=== PATIENT | male | born 1935 | race Caucasian/White ===

== ENCOUNTER 2017-04-18 08:42 | Emergency (ER) | payer MEDICARE, OTHER ==
[~2017-04-18] VITALS: Ht 172.7 cm; Wt 67.0 kg
[~2017-04-18 08:42] MED LIST: AMLO5 PO; ASPI325T PO; BACT800T5 PO; FERR325T PO; FLUT50SP NASAL; LORA-361 PO; NAPR250T57 PO; PRED50 PO; VITA100018 PO; [UNRECOGNIZED DRUG - CODE] EACH EYE
[2017-04-18 08:45] VITALS: BP 119/57; PULSE 63; RESP 20; O2SAT 98
[2017-04-18] MEDS ORDERED: SODIUM CHLOR 0.9% 1000 ML INJ 1,000 ML IV ONE (08:50)
[2017-04-18 08:56] VITALS: O2SAT 98
[2017-04-18] MEDS ORDERED: SODIUM CHLORIDE 0.9% FLUSH 10 ML FLUSH IVF PRN (09:00)
--- NOTE | 2017-04-18 09:22 | PD ---
HPI . Syncope Chief Complaint: Syncope/Near-Syncope Time Seen by Provider: 08:50 Travel History International Travel<30 days: No Contact w/Intl Traveler<30days: No Traveled to known affect area: No History of Present Illness HPI This patient is brought to us by [facility] following a syncopal episode at [facility]. This patient works at [employer]. He states that he had a prodrome of blurred vision followed by cold sweats. He then syncopized. He was treated via [facility] with IV fluids. [facility] reports that his systolic blood pressure was about 70 on their arrival. The patient states that he now feels back to normal. He denies any chest pain, headache, shortness of breath. He states that he has not had any antecedent vomiting or diarrhea. No evidence of GI bleed. No unusual exposure to heat. No recent changes in his medications. PFSH Past Medical History Cancer: No Cardiovascular Problems: Yes High Cholesterol: Yes Cerebrovascular Accident: Yes (STROKE ) Diminished Hearing: No Endocrine: No Genitourinary: No Hypertension: Yes Immune Disorder: No Musculoskeletal: Yes Neurologic: No Psychiatric: No Reproductive: No Respiratory: Yes Past Surgical History Abdominal Surgery: Yes (APPENDECTOMY, hernia repair ) Appendectomy: Yes Other Surgery: Yes Social History Alcohol Use: No Tobacco Use: No Substance Use: No Allergies-Medications (Allergen,Severity, Reaction): Coded Allergies: No Known Allergies (Unverified , 04/18/17) Reported Meds & Prescriptions Reported Meds & Active Scripts Active Fluticasone Nasal [place] 50 Mcg/Act Naspr 2 [place] NASAL DAILY 30 Days Vitamin D3 (Cholecalciferol) 1,000 Unit Tab 1,000 Units PO DAILY Reported Aspirin 325 Mg Tab 325 Mg PO DAILY Norvasc (Amlodipine Besylate) 5 Mg Tab 5 Mg PO DAILY Review of Systems Except as stated in HPI: all other systems reviewed are Neg General / Constitutional: No: Fever, Chills Eyes: No: Blurred Vision HENT: Positive: Lightheadedness, No: Headaches Cardiovascular: No: Chest Pain or Discomfort Respiratory: No: Shortness of Breath Gastrointestinal: No: Nausea, Vomiting, Diarrhea, Abdominal Pain, Hematemesis, Hematochezia Neurologic: Positive: Syncope, No: Focal Abnormalities, Headache, Incontinence , Seizures Physical Exam Narrative GENERAL: Pleasant, elderly man who is now awake and alert and in no distress. SKIN: Warm and dry. HEAD: Atraumatic. Normocephalic. EYES: Pupils equal and round. Extraocular movements are intact. ENT: No nasal bleeding or discharge. Mucous membranes pink and moist. NECK: Trachea midline. Neck is supple. CARDIOVASCULAR: Regular rate and rhythm. Heart sounds are normal. RESPIRATORY: No accessory muscle use. Lungs are clear with full air movement throughout. GASTROINTESTINAL: Abdomen soft, non-tender, nondistended. MUSCULOSKELETAL: No obvious deformities. No edema. NEUROLOGICAL: Awake and alert. No obvious cranial nerve deficits. Motor grossly within normal limits. Normal speech. PSYCHIATRIC: Appropriate mood and affect; insight and judgment normal. Data Data Last Documented VS Vital Signs Date Time Temp Pulse Resp B/P (MAP) Pulse Ox O2 Delivery O2 Flow Rate FiO2 04/18/17 08:56 98 Room Air 04/18/17 08:45 63 20 119/57 (77) Orders Orders Electrocardiogram (04/18/17 08:50) Basic Metabolic Panel (Bmp) (04/18/17 08:50) Complete Blood Count With Diff (04/18/17 08:50) Ckmb (Isoenzyme) Profile (04/18/17 08:50) Troponin I (04/18/17 08:50) Chest, Single Ap (04/18/17 08:50) Ecg Monitoring (04/18/17 08:50) Iv Access Insert/Monitor (04/18/17 08:50) Oximetry (04/18/17 08:50) Sodium Chloride 0.9% Flush (Ns Flush) (04/18/17 09:00) Sodium Chlor 0.9% 1000 Ml Inj (Ns 1000 M (04/18/17 08:50) CKMB (04/18/17 09:00) CKMB% (04/18/17 09:00) Labs Laboratory Tests Test 04/18/17 09:00 White Blood Count 8.3 TH/MM3 Red Blood Count 3.72 MIL/MM3 Hemoglobin 11.0 GM/DL Hematocrit 34.3 % Mean Corpuscular Volume 92.4 FL Mean Corpuscular Hemoglobin 29.6 PG Mean Corpuscular Hemoglobin Concent 32.0 % Red Cell Distribution Width 12.9 % Platelet Count 350 TH/MM3 Mean Platelet Volume 8.4 FL Neutrophils (%) (Auto) 76.5 % Lymphocytes (%) (Auto) 11.4 % Monocytes (%) (Auto) 8.1 % Eosinophils (%) (Auto) 3.7 % Basophils (%) (Auto) 0.3 % Neutrophils # (Auto) 6.3 TH/MM3 Lymphocytes # (Auto) 0.9 TH/MM3 Monocytes # (Auto) 0.7 TH/MM3 Eosinophils # (Auto) 0.3 TH/MM3 Basophils # (Auto) 0.0 TH/MM3 CBC Comment DIFF FINAL Differential Comment Blood Urea Nitrogen 22 MG/DL Creatinine 1.38 MG/DL Random Glucose 127 MG/DL Calcium Level 8.0 MG/DL Sodium Level 141 MEQ/L Potassium Level 4.0 MEQ/L Chloride Level 108 MEQ/L Carbon Dioxide Level 24.7 MEQ/L Anion Gap 8 MEQ/L Estimat Glomerular Filtration Rate 49 ML/MIN Total Creatine Kinase 189 U/L Creatine Kinase MB 3.0 NG/ML Troponin I 0.02 NG/ML MDM Medical Decision Making Medical Screen Exam Complete: Yes Emergency Medical Condition: Yes Medical Record Reviewed: Yes (this patient's medical history is significant for hypertension, previous CVA, anemia and HIV) Interpretation(s) EKG shows sinus rhythm with no acute ischemic change Differential Diagnosis My differential diagnosis of syncope includes but is not limited to cardiac arrhythmia, hypovolemia, anemia, neurological catastrophe, vasovagal response Narrative Course This patient presents [facility] following a syncopal episode. He was hypotensive at the scene. His symptoms are markedly improved with IV fluids. CBC & BMP Diagram 04/18/17 09:00 Calcium Level 8.0 L Last Impressions Chest X-Ray 04/18/17 0850 Signed Impressions: Service Date/Time: March 09:24 - CONCLUSION: No acute disease. Jez Gutierrez MD Cardiac enzymes are normal. This patient's syncope was secondary to low blood pressure which is probably secondary to dehydration. He is markedly improved with IV fluids. He is stable for discharge to home. Diagnosis Primary Impression: Syncope Qualified Codes: R55 - Syncope and collapse Additional Impression: Dehydration Patient Instructions: Dehydration (DC), General Instructions, Near Syncope (DC) Disposition: 01 DISCHARGE HOME Condition: Stable Christine Bellamy MD Apr 18, 2017 09:22
[2017-04-18 09:24] LABS: AUTOMATED NEUTROPHIL # 6.3 TH/MM3 (1.8-7.7); BASOPHIL % 0.3 % (0.0-2.0); EOSINOPHIL # 0.3 TH/MM3 (0-0.4); EOSINOPHIL % 3.7 % (0.0-4.0); HEMATOCRIT 34.3 % (39.0-51.0); HEMO FLAGS DIFF FINAL; LYMPH % 11.4 % (9.0-44.0); LYMPHOCYTE # 0.9 TH/MM3 (1.0-4.8); MEAN CELL VOLUME 92.4 FL (80.0-100.0); MEAN CORPUSCULAR HEMOGLOBIN 29.6 PG (27.0-34.0); MONO % 8.1 % (0.0-8.0); NEUT % 76.5 % (16.0-70.0); PLATELET COUNT 350 TH/MM3 (150-450); RED BLOOD COUNT 3.72 MIL/MM3 (4.50-5.90); RED CELL DISTRIBUTION WIDTH 12.9 % (11.6-17.2); WHITE BLOOD COUNT 8.3 TH/MM3 (4.0-11.0)
--- NOTE | 2017-04-18 09:43 | RADRPT ---
EXAM DATE/TIME: 04/18/2017 09:24 [place] COMPARISON: CHEST SINGLE AP, June 06, 2016, 18:22. INDICATIONS : Syncope and short of breath this morning. MEDICAL HISTORY : Hypertension. SURGICAL HISTORY : Inguinal hernia repair. Appendectomy. ENCOUNTER: Initial ACUITY: 1 day PAIN SCORE: 0/10 LOCATION: Bilateral chest FINDINGS: A single view of the chest demonstrates the lungs to be symmetrically aerated without evidence of mas s, infiltrate or effusion. The cardiomediastinal contours are unremarkable. Osseous structures are intact. CONCLUSION: No acute disease. Jez Gutierrez MD on April 18, 2017 at 9:38 Board Certified Radiologist. This report was verified electronically.
[2017-04-18 09:53] LABS: ANION GAP 8 MEQ/L (5-15); BICARBONATE 24.7 MEQ/L (21.0-32.0); BLOOD UREA NITROGEN 22 MG/DL (7-18); CHLORIDE 108 MEQ/L (98-107); GLOMERULAR FILTRATION RATE 49 ML/MIN (>89); SODIUM (NA) 141 MEQ/L (136-145)
[2017-04-18 09:59] LABS: CREATINE KINASE 189 U/L (39-308)
--- NOTE | 2017-04-18 17:57 | EKG ---
Date Performed: 04/18/2017 Time Performed: 09:08:16 PTAGE: 81 years EKG: Sinus rhythm WITH OCCASIONAL SUPRAVENTRICULAR PREMATURE COMPLEXES POSSIBLE RIGHT VENTRICULAR CONDUCTION DELAY LEF T ANTERIOR FASCICULAR BLOCK ABNORMAL ECG Compared to prior tracing no significant change PREVIOUS TRACING : 07/21/2016 12.37 DOCTOR: Abdoulaye Ragland Interpretating Date/Time 04/18/2017 17:56:18
== END 2017-04-18 11:50 | disposition home or self-care (01) ==
LOC: NEPE 08:42
DX: R55 Syncope and collapse (principal); E86.0 Dehydration; I10 Essential (primary) hypertension; D64.9 Anemia, unspecified; R94.31 Abnormal electrocardiogram [ECG] [EKG]; I44.4 Left anterior fascicular block; Z21 Asymptomatic human immunodeficiency virus [HIV] infection status; Z86.73 Personal history of transient ischemic attack (TIA), and cerebral infarction without residual deficits; Z79.899 Other long term (current) drug therapy
CPT/HCPCS: 71010; 80048; 82550; 82552; 84484; 85025; 93005; 96360; 99285; J7030

== ENCOUNTER 2017-05-31 07:45 | Emergency (ER) | payer OTHER ==
[~2017-05-31] VITALS: Ht 172.7 cm; Wt 66.0 kg
[2017-05-31 07:45] VITALS: BP 162/76; PULSE 77; RESP 18; TEMP 97.6; O2SAT 97
[~2017-05-31 07:45] MED LIST changes: -BACT800T5 PO; -FERR325T PO; -LORA-361 PO; -NAPR250T57 PO; -PRED50 PO; -[UNRECOGNIZED DRUG - CODE] EACH EYE
[2017-05-31] MEDS ORDERED: CLAR10CA3 PO (07:55)
[2017-05-31] MEDS ORDERED: ALEV220T14 PO (07:55)
[2017-05-31 07:56] VITALS: BP 157/76; PULSE 75; RESP 18; O2SAT 98
--- NOTE | 2017-05-31 08:03 | PD ---
HPI Chief Complaint: Syncope/Near-Syncope Time Seen by Provider: 07:51 Travel History International Travel<30 days: No Contact w/Intl Traveler<30days: No Traveled to known affect area: No History of Present Illness HPI This patient had a presyncopal episode. He had walked outside his house and was in his carport and started to feel dizzy and lightheaded. After a couple minutes of this he felt really weak and felt like he was going to pass out. He left himself to the ground but did not lose consciousness. No injury. He denies having any pain at all. No headache or chest pain. No weakness sensory loss speech slurring etc. His called paramedics and brought him for evaluation. By the time he got to the emergency room he felt perfectly normal and had no symptoms. Patient had a similar event in March, 2 months ago, and this is the second time this happened. Symptoms were moderately severe for about 5 minutes but at this time they are absent. No alleviating factors. No exacerbating factors. PFSH Past Medical History Cancer: No Cardiovascular Problems: Yes High Cholesterol: Yes Cerebrovascular Accident: Yes (STROKE ) Diminished Hearing: No Endocrine: No Genitourinary: No Hypertension: Yes Immune Disorder: No Musculoskeletal: Yes Neurologic: No Psychiatric: No Reproductive: No Respiratory: Yes Past Surgical History Abdominal Surgery: Yes (APPENDECTOMY, hernia repair ) Appendectomy: Yes Other Surgery: Yes Social History Alcohol Use: No Tobacco Use: No Substance Use: No Allergies-Medications (Allergen,Severity, Reaction): Coded Allergies: No Known Allergies (Unverified , 04/18/17) Reported Meds & Prescriptions Reported Meds & Active Scripts Active Reported Claritin (Loratadine) 10 Mg Cap 10 Mg PO DAILY Aleve Arthritis (Naproxen Sodium) 220 Mg Tab 220 Mg PO BID Review of Systems General / Constitutional: No: Fever Eyes: No: Visual changes HENT: Positive: Lightheadedness, No: Headaches Cardiovascular: No: Chest Pain or Discomfort Respiratory: No: Shortness of Breath Gastrointestinal: No: Abdominal Pain Genitourinary: No: Dysuria Musculoskeletal: Positive: Weakness, No: Pain Skin: No Rash Neurologic: Positive: Weakness, Dizziness Psychiatric: No: Depression Endocrine: No: Polydipsia Hematologic/Lymphatic: No: Easy Bruising Physical Exam Narrative GENERAL: Well-nourished, well-developed patient in no apparent distress. SKIN: Focused skin assessment reveals no rash and nodules. Skin is Warm and dry. HEAD: Atraumatic. Normocephalic. EYES: Pupils equal and round. No scleral icterus. No injection or drainage. ENT: No nasal bleeding or discharge. Mucous membranes pink and moist. NECK: Trachea midline. No JVD. CARDIOVASCULAR: Regular rate and rhythm. No murmur appreciated. RESPIRATORY: No accessory muscle use. Clear to auscultation. Breath sounds equal bilaterally. GASTROINTESTINAL: Abdomen soft, non-tender, nondistended. Hepatic and splenic margins not palpable. MUSCULOSKELETAL: No obvious deformities. No clubbing. No cyanosis. No edema. NEUROLOGICAL: Awake and alert. No obvious cranial nerve deficits. Motor grossly within normal limits. Normal speech. PSYCHIATRIC: Appropriate mood and affect; insight and judgment normal. Data Data Last Documented VS Vital Signs Date Time Temp Pulse Resp B/P (MAP) Pulse Ox O2 Delivery O2 Flow Rate FiO2 05/31/17 09:52 70 18 165/76 (105) 98 Room Air 05/31/17 07:45 97.6 Orders Orders Iv Access Insert/Monitor (05/31/17 07:59) Electrocardiogram (05/31/17 ) Complete Blood Count With Diff (05/31/17 07:59) Basic Metabolic Panel (Bmp) (05/31/17 07:59) Sodium Chlor 0.9% 1000 Ml Inj (Ns 1000 M (05/31/17 09:00) Labs Laboratory Tests Test 05/31/17 08:18 White Blood Count 8.9 TH/MM3 Red Blood Count 3.14 MIL/MM3 Hemoglobin 8.8 GM/DL Hematocrit 27.4 % Mean Corpuscular Volume 87.3 FL Mean Corpuscular Hemoglobin 28.0 PG Mean Corpuscular Hemoglobin Concent 32.1 % Red Cell Distribution Width 12.7 % Platelet Count 456 TH/MM3 Mean Platelet Volume 7.2 FL Neutrophils (%) (Auto) 86.3 % Lymphocytes (%) (Auto) 5.4 % Monocytes (%) (Auto) 6.3 % Eosinophils (%) (Auto) 1.8 % Basophils (%) (Auto) 0.2 % Neutrophils # (Auto) 7.6 TH/MM3 Lymphocytes # (Auto) 0.5 TH/MM3 Monocytes # (Auto) 0.6 TH/MM3 Eosinophils # (Auto) 0.2 TH/MM3 Basophils # (Auto) 0.0 TH/MM3 CBC Comment DIFF FINAL Differential Comment Blood Urea Nitrogen 26 MG/DL Creatinine 1.70 MG/DL Random Glucose 116 MG/DL Calcium Level 8.5 MG/DL Sodium Level 139 MEQ/L Potassium Level 3.8 MEQ/L Chloride Level 103 MEQ/L Carbon Dioxide Level 26.9 MEQ/L Anion Gap 9 MEQ/L Estimat Glomerular Filtration Rate 39 ML/MIN MDM Medical Decision Making Medical Screen Exam Complete: Yes Emergency Medical Condition: Yes Medical Record Reviewed: Yes Differential Diagnosis Vasovagal episode, cardiac arrhythmia, dehydration, presyncope Narrative Course I have reviewed the patient's electronic medical record. Reviewed his workup from 2 months ago which was negative IV placed CBC shows anemia which is chronic Metabolic profile shows some renal sufficiency I reviewed his EKG which shows sinus rhythm without ectopy or ST elevation Initial blood pressure 157/76 He tracks his blood pressure several times a week and it always runs around 130 to 140 systolic he reports. Patient is neurologically intact. I gave him 1 L normal saline IV He is euvolemic For the 2 after hours he's been here he is been absolutely asymptomatic and stable for outpatient follow-up Diagnosis Primary Impression: Pre-syncope Additional Instructions: The patient was advised to follow up with their physician and return if they worsen. Med/Other Pt SpecificInfo: Other Disposition: 01 DISCHARGE HOME Condition: Stable Dick Sam MD May 31, 2017 08:03
[2017-05-31 08:26] LABS: AUTOMATED NEUTROPHIL # 7.6 TH/MM3 (1.8-7.7); BASOPHIL % 0.2 % (0.0-2.0); EOSINOPHIL # 0.2 TH/MM3 (0-0.4); EOSINOPHIL % 1.8 % (0.0-4.0); HEMATOCRIT 27.4 % (39.0-51.0); HEMO FLAGS DIFF FINAL; LYMPH % 5.4 % (9.0-44.0); LYMPHOCYTE # 0.5 TH/MM3 (1.0-4.8); MEAN CELL VOLUME 87.3 FL (80.0-100.0); MEAN CORPUSCULAR HGB CONC 32.1 % (32.0-36.0); MONO % 6.3 % (0.0-8.0); NEUT % 86.3 % (16.0-70.0); PLATELET COUNT 456 TH/MM3 (150-450); RED BLOOD COUNT 3.14 MIL/MM3 (4.50-5.90); RED CELL DISTRIBUTION WIDTH 12.7 % (11.6-17.2); WHITE BLOOD COUNT 8.9 TH/MM3 (4.0-11.0)
[2017-05-31 08:40] LABS: POTASSIUM 3.8 MEQ/L (3.5-5.1)
[2017-05-31 08:43] LABS: BICARBONATE 26.9 MEQ/L (21.0-32.0)
--- NOTE | 2017-05-31 08:52 | EKG ---
Date Performed: 05/31/2017 Time Performed: 08:02:02 PTAGE: 81 years EKG: Sinus rhythm LEFT ANTERIOR FASCICULAR BLOCK ABNORMAL ECG PREVIOUS TRACING : 04/18/2017 09.08 No significant change from previous tracing noted. DOCTOR: Mike Truong Interpretating Date/Time 05/31/2017 08:52:30
[2017-05-31] MEDS ORDERED: SODIUM CHLOR 0.9% 1000 ML INJ 1,000 ML IV ONE (09:00)
[2017-05-31 09:52] VITALS: BP 165/76; PULSE 70; RESP 18; O2SAT 98
== END 2017-05-31 10:42 | disposition home or self-care (01) ==
LOC: PHED 07:45
DX: R55 Syncope and collapse (principal); E78.00 Pure hypercholesterolemia, unspecified; I10 Essential (primary) hypertension; R94.31 Abnormal electrocardiogram [ECG] [EKG]
CPT/HCPCS: 80048; 85025; 93005; 96360; 99284; J7030

== ENCOUNTER 2017-06-01 13:48 | Emergency (ER) | payer OTHER ==
[~2017-06-01] VITALS: Ht 172.7 cm; Wt 65.2 kg
[~2017-06-01 13:48] MED LIST changes: +ALEV220T14 PO; -AMLO5 PO; -ASPI325T PO; +CLAR10CA3 PO; -FLUT50SP NASAL; -VITA100018 PO
[2017-06-01 13:50] VITALS: BP 159/74; PULSE 73; RESP 16; TEMP 98.7; O2SAT 97
--- NOTE | 2017-06-01 15:23 | PD ---
HPI Chief Complaint: Eye Problems/Injury Time Seen by Provider: 14:30 Travel History International Travel<30 days: No Contact w/Intl Traveler<30days: No Traveled to known affect area: No History of Present Illness HPI This is an 81-year-old male who presents to the emergency department having had an episode yesterday where he passed out and fell into the bushes. He didn't hit his head. Ever since then he reports he's been having a black spot in his eye that looks like upon history. He is not a very good historian and is hearing impaired. It seems to be in the same region of his vision and the size and shape stays the same. His eye is not painful but it is a little bit irritated and red. His symptoms of been constant and not improving or changing. He does not currently see an engraver wood. PFSH Past Medical History Hx Anticoagulant Therapy: Yes (aspirin ) Cancer: No Cardiovascular Problems: Yes High Cholesterol: Yes Cerebrovascular Accident: Yes (TIA 2 yrs ago) Diminished Hearing: No Endocrine: No Genitourinary: No Hypertension: Yes Immune Disorder: No Implanted Vascular Access Dvce: No Musculoskeletal: Yes Neurologic: No Psychiatric: No Reproductive: No Respiratory: Yes ?: Not Past Surgical History Abdominal Surgery: Yes (hernia repair ) Appendectomy: Yes Other Surgery: Yes Social History Alcohol Use: No Tobacco Use: No Substance Use: No Allergies-Medications (Allergen,Severity, Reaction): Coded Allergies: No Known Allergies (Unverified , 04/18/17) Reported Meds & Prescriptions Reported Meds & Active Scripts Active Reported Claritin (Loratadine) 10 Mg Cap 10 Mg PO DAILY Aleve Arthritis (Naproxen Sodium) 220 Mg Tab 220 Mg PO BID Review of Systems ROS Limitations: Hearing Impaired Physical Exam Narrative GENERAL:Well appearing, no acute distress SKIN: Focused skin assessment warm and dry. HEAD: Atraumatic. Normocephalic. EYES: Pupils equal and round. No injection or drainage. Vision is 20/25 in both eyes. Left eye has some conjunctival injection. There is no uptake on fluoroscein exam. Funduscopic exam appears dark red on the left but is impaired by pupil constriction ENT: Moist mucous membranes NECK: Trachea midline. CARDIOVASCULAR: Regular rate and rhythm. No murmur appreciated. RESPIRATORY: Clear to auscultation. Breath sounds equal bilaterally. GASTROINTESTINAL: Abdomen soft, non-tender, nondistended. MUSCULOSKELETAL: No obvious deformities. NEUROLOGICAL: Awake and alert. No obvious cranial nerve deficits. No dysarthria or aphasia. Moving all extremities. PSYCHIATRIC: Appropriate mood and affect; insight and judgment normal. Data Data Last Documented VS Vital Signs Date Time Temp Pulse Resp B/P (MAP) Pulse Ox O2 Delivery O2 Flow Rate FiO2 06/01/17 13:50 98.7 73 16 159/74 (102) 97 Orders Orders Ed Poc Ultrasound (06/01/17 ) [facility] Medical Decision Making Medical Screen Exam Complete: Yes Emergency Medical Condition: Yes Interpretation(s) Afebrile, no tachycardia, hypertensive [id number] ultrasound: No obvious retinal detachment, small hyperdensity at the posterior aspect of the globe near the optic nerve which may be the macula Differential Diagnosis Retinal detachment, vitreous hemorrhage, corneal abrasion Narrative Course This is an 81-year-old male who presents to the emergency department with a black treelike shape in his vision ever since a traumatic injury yesterday. Visual acuity is 20/25 in both eyes. He does have some conjunctival injection in the left eye but no evidence of a corneal abrasion. I performed a bedside ultrasound which was indeterminate. I spoke to the on-call service for Dr. Freeman a retinal specialist and he is willing to see the patient in his office in [place] at 5:30. Patient was advised to follow-up there immediately after discharge. Diagnosis Primary Impression: Visual floaters Qualified Codes: H43.392 - Other vitreous opacities, left eye Additional Instructions: Follow-up immediately after this visit with: Dr. Mcguire at [facility] at 5:[address] [place] [id number] Call [phone] If you have trouble making your appointment Med/Other Pt SpecificInfo: No Change to Meds Disposition: 01 DISCHARGE HOME Condition: Stable Christiana Denney MD Jun 01, 2017 15:23
== END 2017-06-01 16:44 | disposition home or self-care (01) ==
LOC: PHED 13:48
DX: H43.392 Other vitreous opacities, left eye (principal); H91.90 Unspecified hearing loss, unspecified ear; I10 Essential (primary) hypertension
CPT/HCPCS: 99284

== ENCOUNTER 2017-08-23 08:14 | Inpatient (IN) | payer OTHER, MEDICARE ==
[~2017-08-23] VITALS: Ht 172.7 cm; Wt 65.0 kg
[2017-08-23 08:22] VITALS: BP 203/99; PULSE 85; RESP 16; TEMP 97.8; O2SAT 98
[2017-08-23] MEDS ORDERED: MORPHINE SULFATE 2 MG/ML INJ IV PUSH ONE (09:30)
[2017-08-23] MEDS ORDERED: ONDANSETRON HCL 4 MG/2 ML VIAL IV PUSH ONE (09:30)
--- NOTE | 2017-08-23 09:34 | PD ---
HPI Chief Complaint: Fall Time Seen by Provider: 09:27 Travel History International Travel<30 days: No Contact w/Intl Traveler<30days: No Traveled to known affect area: No History of Present Illness HPI 81-year-old male complains of right hip pain. Patient states that he fell yesterday. Patient denies loss of consciousness. Patient denies any headache or neck pain. Patient denies any chest pain or shortness of breath. Patient denies abdominal pain. Patient denies any focal weakness or numbness of extremity. Patient has history hypertension. Patient denies history of diabetes. Patient is a nonsmoker. PFSH Past Medical History Hx Anticoagulant Therapy: Yes (aspirin ) Arthritis: Yes Cancer: No Cardiovascular Problems: Yes High Cholesterol: Yes Cerebrovascular Accident: Yes (TIA 2 yrs ago) Diminished Hearing: No Endocrine: No Genitourinary: No Hypertension: Yes Immune Disorder: No Implanted Vascular Access Dvce: No Musculoskeletal: Yes Neurologic: No Psychiatric: No Reproductive: No Respiratory: Yes Tetanus Vaccination: < 5 Years Influenza Vaccination: Yes Past Surgical History Abdominal Surgery: Yes (hernia repair ) Appendectomy: Yes Other Surgery: Yes Social History Alcohol Use: No Tobacco Use: No (QUIT 40 YEARS AGO) Substance Use: No Allergies-Medications (Allergen,Severity, Reaction): Coded Allergies: No Known Allergies (Verified Adverse Reaction, Unknown, 08/23/17) Reported Meds & Prescriptions Reported Meds & Active Scripts Active Reported Claritin (Loratadine) 10 Mg Cap 10 Mg PO DAILY Aleve Arthritis (Naproxen Sodium) 220 Mg Tab 220 Mg PO BID Review of Systems General / Constitutional: No: Fever Eyes: No: Visual changes HENT: No: Headaches Cardiovascular: No: Chest Pain or Discomfort Respiratory: No: Shortness of Breath Gastrointestinal: No: Abdominal Pain Genitourinary: No: Dysuria Musculoskeletal: Positive: Pain Skin: No Rash Neurologic: No: Weakness Psychiatric: No: Depression Endocrine: No: Polydipsia Hematologic/Lymphatic: No: Easy Bruising Physical Exam Narrative GENERAL: Well-nourished, well-developed patient. SKIN: Focused skin assessment warm/dry. HEAD: Normocephalic. EYES: No scleral icterus. No injection or drainage. NECK: Supple, trachea midline. No JVD or lymphadenopathy. CARDIOVASCULAR: Regular rate and rhythm without murmurs, gallops, or rubs. RESPIRATORY: Breath sounds equal bilaterally. No accessory muscle use. GASTROINTESTINAL: Abdomen soft, non-tender, nondistended. MUSCULOSKELETAL: Patient has moderate tenderness on palpation right hip area. The right leg is externally rotated and shortened. Sensorimotor function distally intact. BACK: Nontender without obvious deformity. No CVA tenderness. Neurologic exam normal. Data Data Last Documented VS Vital Signs Date Time Temp Pulse Resp B/P (MAP) Pulse Ox O2 Delivery O2 Flow Rate FiO2 08/23/17 09:43 16 08/23/17 09:39 99 Room Air 08/23/17 08:22 97.8 85 203/99 (133) Orders Orders Electrocardiogram (08/23/17 09:27) Complete Blood Count With Diff (08/23/17:27) Comprehensive Metabolic Panel (08/23/17:27) Creatine Kinase (Cpk) (08/23/17 09:27) Prothrombin Time / Inr (Pt) (08/23/17:27) Act Partial Throm Time (Ptt) (08/23/17 09:27) Urinalysis - C+S If Indicated (08/23/17 09:27) Thyroid Stimulating Hormone (08/23/17 09:27) Chest, Single Ap (08/23/17 09:27) Iv Access Insert/Monitor (08/23/17:27) Ecg Monitoring (08/23/17:27) Oximetry (08/23/17:27) Hip, Uni(Ap&Lat) W Ap Pelvis (08/23/17 09:27) Sodium Chlor 0.9% 1000 Ml Inj (Ns 1000 M (08/23/17 09:30) Morphine Inj (Morphine Inj) (08/23/17 09:30) Ondansetron Inj (Zofran Inj) (08/23/17 09:30) Labs Laboratory Tests Test 08/23/17 09:35 White Blood Count 8.9 TH/MM3 Red Blood Count 3.71 MIL/MM3 Hemoglobin 11.1 GM/DL Hematocrit 33.1 % Mean Corpuscular Volume 89.3 FL Mean Corpuscular Hemoglobin 29.9 PG Mean Corpuscular Hemoglobin Concent 33.6 % Red Cell Distribution Width 18.0 % Platelet Count 279 TH/MM3 Mean Platelet Volume 8.8 FL Neutrophils (%) (Auto) 82.4 % Lymphocytes (%) (Auto) 5.9 % Monocytes (%) (Auto) 11.2 % Eosinophils (%) (Auto) 0.3 % Basophils (%) (Auto) 0.2 % Neutrophils # (Auto) 7.3 TH/MM3 Lymphocytes # (Auto) 0.5 TH/MM3 Monocytes # (Auto) 1.0 TH/MM3 Eosinophils # (Auto) 0.0 TH/MM3 Basophils # (Auto) 0.0 TH/MM3 CBC Comment DIFF FINAL Differential Comment Prothrombin Time 10.5 SEC Prothromb Time International Ratio 1.0 RATIO Activated Partial Thromboplast Time 24.7 SEC Urine Color LIGHT-YELLOW Urine Turbidity CLEAR Urine pH 7.0 Urine Specific [place] 1.009 Urine Protein 100 mg/dL Urine Glucose (UA) NEG mg/dL Urine Ketones NEG mg/dL Urine Occult Blood MOD Urine Nitrite NEG Urine Bilirubin NEG Urine Urobilinogen LESS THAN 2.0 MG/DL Urine Leukocyte Esterase NEG Urine RBC 81 /hpf Urine WBC 2 /hpf Urine Bacteria RARE /hpf Urine Mucus FEW /lpf Microscopic Urinalysis Comment CULT NOT INDICATED Blood Urea Nitrogen 40 MG/DL Creatinine 1.95 MG/DL Random Glucose 100 MG/DL Total Protein 7.5 GM/DL Albumin 3.7 GM/DL Calcium Level 8.6 MG/DL Alkaline Phosphatase 118 U/L Aspartate Amino Transf (AST/SGOT) 21 U/L Alanine Aminotransferase (ALT/SGPT) 18 U/L Total Bilirubin 0.7 MG/DL Sodium Level 141 MEQ/L Potassium Level 4.1 MEQ/L Chloride Level 107 MEQ/L Carbon Dioxide Level 26.0 MEQ/L Anion Gap 8 MEQ/L Estimat Glomerular Filtration Rate 33 ML/MIN Total Creatine Kinase 146 U/L Thyroid Stimulating Hormone 3rd Gen 2.130 uIU/ML [facility] Medical Decision Making Medical Screen Exam Complete: Yes Emergency Medical Condition: Yes Interpretation(s) 10:24 AM. CBC with WBC 8.9. Hemoglobin 11.1 hematocrit 33.1. 82 neutrophil. BUN 40. Creatinine 1.95. GFR 33. UA positive for RBC and bacteria. Differential Diagnosis Differential diagnosis including fracture, dislocation. Narrative Course 81-year-old male with right hip injury. Normal saline solution 1 25 cc an hour. Morphine 2 mg IV. Zofran 4 mg IV Diagnosis Primary Impression: Fracture of femoral neck, right Qualified Codes: S72.001A - Fracture of unspecified part of neck of right femur, initial encounter for closed fracture Additional Impressions: Chronic kidney disease (CKD) stage G3a/A1, moderately decreased glomerular filtration rate (GFR) between 45-59 mL/min/1.73 square meter and albuminuria creatinine ratio less than 30 mg/g Hematuria Qualified Codes: R31.21 - Asymptomatic microscopic hematuria Admitting Information Admitting Physician Requests: it Kofi Fonseca MD Aug 23, 2017 09:34
[2017-08-23] MEDS: SODIUM CHLOR 0.9% 1000 ML INJ 1,000 ML IV SCH ×2 (09:38→15:11)
[2017-08-23 09:39] VITALS: RESP 17; O2SAT 99
[2017-08-23 10:08] LABS: BACTERIA, URINE RARE /hpf; BILIRUBIN, URINE NEG (NEG); BLOOD, URINE MOD (NEG); GLUCOSE,URINE NEG (NEG); KETONE, URINE NEG (NEG); MUCUS URINE FEW /lpf (OCC); NITRITE,URINE NEG (NEG); URINE COLOR LIGHT-YELLOW (YELLW/STRAW); URINE LEUKOCYTE ESTERASE NEG (NEG)
[2017-08-23 10:12] LABS: AUTOMATED NEUTROPHIL # 7.3 TH/MM3 (1.8-7.7); BASOPHIL % 0.2 % (0.0-2.0); EOSINOPHIL % 0.3 % (0.0-4.0); HEMATOCRIT 33.1 % (39.0-51.0); HEMOGLOBIN 11.1 GM/DL (13.0-17.0); LYMPH % 5.9 % (9.0-44.0); LYMPHOCYTE # 0.5 TH/MM3 (1.0-4.8); MEAN CELL VOLUME 89.3 FL (80.0-100.0); MEAN CORPUSCULAR HEMOGLOBIN 29.9 PG (27.0-34.0); MEAN CORPUSCULAR HGB CONC 33.6 % (32.0-36.0); MEAN PLATELET VOLUME 8.8 FL (7.0-11.0); MONO % 11.2 % (0.0-8.0); NEUT % 82.4 % (16.0-70.0); PLATELET COUNT 279 TH/MM3 (150-450); RED BLOOD COUNT 3.71 MIL/MM3 (4.50-5.90); WHITE BLOOD COUNT 8.9 TH/MM3 (4.0-11.0)
[2017-08-23 10:13] LABS: PROTHROMBIN TIME - PATIENT 10.5 SEC (9.8-11.6)
[2017-08-23 10:15] VITALS: BP 164/83; PULSE 84; RESP 16; TEMP 97.9; O2SAT 99
[2017-08-23 10:20] LABS: ALBUMIN 3.7 GM/DL (3.4-5.0); AST (GOT) 21 U/L (15-37); BLOOD UREA NITROGEN 40 MG/DL (7-18); CALCIUM 8.6 MG/DL (8.5-10.1); CHLORIDE 107 MEQ/L (98-107); CREATININE 1.95 MG/DL (0.60-1.30); GLOMERULAR FILTRATION RATE 33 ML/MIN (>89); GLUCOSE,RANDOM 100 MG/DL (74-106); SODIUM (NA) 141 MEQ/L (136-145)
--- NOTE | 2017-08-23 10:23 | RADRPT ---
EXAM DATE/TIME: 08/23/2017 09:56 [facility] COMPARISON: No previous studies available for comparison. INDICATIONS : Fell today MEDICAL HISTORY : None. SURGICAL HISTORY : None. ENCOUNTER: Initial ACUITY: 1 day PAIN SCORE: 8/10 LOCATION: Right hip and pelvis FINDINGS: Intertrochanteric fracture right hip. Degenerative changes right SI joint. Left hemipelvis intact. CONCLUSION: Intertrochanteric fracture right hip. Maurice Mendez MD FACR on August 23, 2017 at 10:21 Board Certified Radiologist. This report was verified electronically.
[2017-08-23 10:30] LABS: ALKALINE PHOSPHATASE 118 U/L (45-117); ALT (GPT) 18 U/L (12-78); TOTAL BILIRUBIN ADULT 0.7 MG/DL (0.2-1.0); TOTAL PROTEIN 7.5 GM/DL (6.4-8.2)
--- NOTE | 2017-08-23 10:33 | RADRPT ---
EXAM DATE/TIME: 08/23/2017 09:56 [facility] COMPARISON: CHEST SINGLE AP, April 18, 2017, 9:24. INDICATIONS : Fell today. MEDICAL HISTORY : None. SURGICAL HISTORY : None. ENCOUNTER: Initial ACUITY: 1 day PAIN SCORE: 0/10 LOCATION: Bilateral chest FINDINGS: The cardiac silhouette is enlarged in transverse diameter. The lungs are free of acute parenchymal op acity. No effusions are identified. There is prominence of the aortic knob is with calcification omero acteristic of atherosclerotic vascular disease. There is no evidence of acute fracture. CONCLUSION: 1. Cardiomegaly. No acute pulmonary disease. Benji Henley MD on August 23, 2017 at 10:30 Board Certified Radiologist. This report was verified electronically.
[2017-08-23] MEDS ORDERED: ACETAMINOPHEN/HYDROcodone 325 MG/5 MG TAB PO PRN (11:30)
[2017-08-23] MEDS ORDERED: SODIUM CHLORIDE 0.9% FLUSH 10 ML FLUSH IV FLUSH PRN (11:30)
[2017-08-23] MEDS ORDERED: BISACODYL 10 MG SUPP RECTAL PRN (11:30)
[2017-08-23] MEDS ORDERED: SENNOSIDES 8.6 MG TAB PO PRN (11:30)
[2017-08-23] MEDS ORDERED: TEMAZEPAM 15 MG CAP PO PRN (11:30)
[2017-08-23] MEDS ORDERED: PROCHLORPERAZINE 25 MG SUPP RECTAL PRN (11:30)
[2017-08-23] MEDS ORDERED: NALOXONE HCL 0.4 MG/ML AMP IV PUSH PRN ×2 (11:30)
[2017-08-23] MEDS ORDERED: ONDANSETRON HCL 4 MG/2 ML VIAL IVP PRN (11:30)
[2017-08-23] MEDS ORDERED: MORPHINE SULFATE 2 MG/ML INJ IV PUSH PRN ×2 (11:30→14:00)
[2017-08-23] MEDS ORDERED: LACTULOSE SYRUP 20 GM/30 ML CUP PO PRN (11:30)
[2017-08-23] MEDS ORDERED: ACETAMINOPHEN 325 MG TAB PO PRN (11:30)
[2017-08-23] MEDS ORDERED: LIDOCAINE HCL 1% PF 5 ML SYRINGE OTHER ONE (12:00)
[2017-08-23] MEDS ORDERED: PROPOFOL 200 MG/20 ML AMP IV ONE (12:00)
[2017-08-23] MEDS ORDERED: LACTATED RINGER'S 1000 ML INJ 1,000 ML IV ONE (12:00)
[2017-08-23] MEDS ORDERED: PHENYLEPH/NS 1000 MCG/10 ML SYR IV ONE (12:00)
--- NOTE | 2017-08-23 12:24 | RADRPT ---
EXAM DATE/TIME: 08/23/2017 12:03 [facility] COMPARISON: HIP RIGHT (AP&LAT 2/3VWS) W AP PELVIS, August 23, 2017, 9:56. INDICATIONS : Right hip pain, evaluate for possible fracture. RADIATION DOSE: 7.33 CTDIvol (mGy) MEDICAL HISTORY : Hypertension. Cerebrovascular disease. SURGICAL HISTORY : Appendectomy. hernia repair ENCOUNTER: Initial ACUITY: 1 day PAIN SCALE: 8/10 LOCATION: Right hip TECHNIQUE: Volumetric scanning of the hip was performed. Using automated exposure control and adjustment of the mA and/or kV according to patient size, radiation dose was kept as low as reasonably achievable to o btain optimal diagnostic quality images. DICOM format image data is available electronically for rev iew and comparison. FINDINGS: Basi cervical fracture right hip. Femoral head aligned with the acetabulum. Pelvis intact. Moderate vascular calcifications. CONCLUSION: Basi cervical fracture fracture right hip. Femoral head aligned with the acetabulum. Maurice Mendez MD FACR on August 23, 2017 at 12:19 Board Certified Radiologist. This report was verified electronically.
--- NOTE | 2017-08-23 12:38 | PD.ORT.PN ---
Subjective Subjective Remarks s/p fall at home right hip pain. Ct scan reveals femoral neck fx Objective Vitals Vital Signs Date Time Temp Pulse Resp B/P (MAP) Pulse Ox O2 Delivery O2 Flow Rate FiO2 08/23/17 10:15 97.9 84 16 164/83 (110) 99 Room Air 08/23/17 09:43 16 08/23/17 09:39 17 99 Room Air 08/23/17 08:22 97.8 85 16 203/99 (133) 98 08/23/17 08:22 81 16 99 Room Air Result Diagram: 08/23/17 0935 08/23/1735 Other Results Laboratory Tests Test 08/23/17 09:35 Prothromb Time International Ratio 1.0 RATIO Prothrombin Time 10.5 SEC (9.8-11.6) Imaging Last 24 hours Impressions Hip and Pelvis X-Ray 08/23/17926 Signed Impressions: Service Date/Time: Wednesday, August 23, 2017 09:56 - CONCLUSION: Intertrochanteric fracture right hip. Maurice Mendez MD FACR Chest X-Ray 08/23/17926 Signed Impressions: Service Date/Time: Wednesday, August 23, 2017 09:56 - CONCLUSION: 1. Cardiomegaly. No acute pulmonary disease. Benji Henley MD Lower Extremity CT 08/23/17 0000 Signed Impressions: Service Date/Time: Wednesday, August 23, 2017 12:03 - CONCLUSION: Basi cervical fracture fracture right hip. Femoral head aligned with the acetabulum. Maurice Mendez MD FACR Objective Remarks RLE: pain in hip with motion. nvi. Assessment & Plan Assessment and Plan 1) Right Femoral Neck Fx -NPO -consents -plan for OR today for hemiarthroplasty Anil Lynch/Development Technologist DON Aug 23, 2017 12:38
[2017-08-23 12:46] VITALS: BP 150/81; TEMP 97.8
[2017-08-23] MEDS ORDERED: VANCOMYCIN HCL 1000 MG VIAL ONE (13:02)
[2017-08-23] MEDS ORDERED: GENTAMICIN SULFATE 80 MG/2 ML VIAL ONE (13:02)
[2017-08-23] MEDS ORDERED: ceFAZolin INJ 1,000 MG VIAL ONE (13:02)
[2017-08-23] MEDS ORDERED: ceFAZolin 2 GM PREMIX 50 ML ONE (13:15)
[2017-08-23] MEDS ORDERED: SODIUM CHLORID 0.9% 500 ML IV PRN (13:30)
[2017-08-23] MEDS ORDERED: METOPROLOL TARTRATE 25 MG TAB PO PRN (13:30)
[2017-08-23] MEDS ORDERED: POVIDONE IODINE 5% (ANTISEPSIS KIT) 4 APPLICATIONS EACH NARE PRN (13:30)
[2017-08-23] MEDS ORDERED: LACTATED RINGER'S 1000 ML IV PRN (13:30)
[2017-08-23] MEDS ORDERED: CHLORHEXIDINE GLUCONATE 2 % 1 PACK (2 CLOTHS) TOPICAL PRN (13:30)
--- NOTE | 2017-08-23 13:49 | PD.OP ---
cc: Tate Dia MD Operative Report Date of Surgery: Aug 23, 2017 Preoperative Diagnosis: Displaced right femoral neck fracture Postoperative Diagnosis: Procedure: right hip heraclio-arthroplasty Surgeon: Tate Dia Front End Ui Developer(s): RIAZ Cano PA-C The surgical procedure was assisted by my physician assistant teacher. My P.A. presence was necessary throughout this case for the manipulation and positioning of the surgical extremity. My P.A. was assisting me throughout the duration of this procedure. The skill set of a physician assistant teacher was medically necessary to complete this procedure. During the surgical case the surgical instrument mechanic was working at the back table and the physician assistant teacher was directly assisting me. Operation and Findings: PLAN OF ACTIVITY Weight bear as tolerated. IMPLANTS USED DePuy Corail size [] stem with size [] bipolar head and [] neck. DRAIN: 7 mm Shine-Perea drain DETAILS OF PROCEDURE This patient was brought into the operating room and placed on the OR table. The patient was given anesthesia. The patient received IV antibiotics. The patient was then placed in lateral decubitus position. The hip and leg were prepped with alcohol, followed by Hibiclens and draped in a usual sterile fashion. Clean air was used for this procedure. Time out procedure was performed. The procedure began with a 5 inch incision over the posterolateral hip. The subcutaneous tissue was dissected with the Bovie. The iliotibial band were split in line with fibers. The Charnley retractor was placed. The piriformis and external rotators were released from the femur and tagged with a #1 Vicryl suture. The capsule is now incised and tagged with #1 Vicryl. The femoral neck fracture was now visualized. A corkscrew was now used to remove the femoral head. The femoral head was sized and measured. Soft tissue was now protected. The hip skid was placed underneath the femoral neck. An oscillating saw was used to make a femoral neck cut. At this point attention was turned to preparation of the proximal femur. A box osteotome was used to remove the lateral cortex of the femoral neck. The T- handle reamer was used to open the femoral canal. Next, the canal was broached. A lateralizing reamer was used to help lateralize the prosthesis. At this point a trial head and neck were placed. The hip was reduced. The patient was found to have excellent stability with good range of motion. Trial components were removed. Soft tissue and bone were thoroughly irrigated. A Corail stem was now opened. The stem was now impacted into the proximal femur. Care was taken to keep appropriate anteversion. The head and neck were now impacted onto the stem. The hip was again reduced. The hip was found to have good range of motion and good stability. Leg lengths were clinically equal. The wound was thoroughly irrigated. The capsule, piriformis and iliotibial band were closed with #1 Vicryl. Subcutaneous tissue was closed with 3-0 Vicryl. The skin was closed with brian. A sterile dressing was applied with Primapore. The patient was placed into a knee immobilizer. The patient was awakened and transferred to the recovery room in stable condition. Needle and sponge counts were correct. Tate Dia MD Aug 23, 2017 13:49
[2017-08-23] MEDS ORDERED: Post-op Orders (for Pharmacy) XX ONE (14:00)
[2017-08-23] MEDS ORDERED: ERGOCALCIFEROL (VIT D2) 50,000 UNIT CAP PO ONE (14:00)
--- NOTE | 2017-08-23 14:03 | MB ---
cc: ROSELYN ZIEGLER DATE OF CONSULTATION 08/23/2017 REASON FOR CONSULTATION Right femoral neck fracture. HISTORY OF PRESENT ILLNESS Rafael is an 81-year-old male. He had a fall last night. He denies dizziness, syncope or loss of consciousness. He landed on his right side. He had immediate right hip pain. He was unable to stand or ambulate. He presented to the hospital via EMS. X-rays revealed a displaced right femoral neck fracture. He is currently awake and alert. His only complaint is his right hip. Pain is worse with movement. PAST MEDICAL HISTORY ILLNESSES 1. History of TIA. 2. Hypertension. SURGERIES 1. Appendectomy. 2. Hernia repair. ALLERGIES No known drug allergies. MEDICATIONS 1. Aleve. 2. Claritin. SOCIAL HISTORY The patient denies alcohol, tobacco or drug use. REVIEW OF SYSTEMS The patient denies headache, visual changes, neck pain, chest pain, shortness of breath, abdominal pain, nausea, vomiting or recent weight loss, fevers or chills, or numbness or tingling of extremities. He complains of right hip pain. Pain is worse with movement. PHYSICAL EXAMINATION GENERAL: The patient is a well-developed, well-nourished 81-year-old male. He is in no acute distress. He is alert and oriented x3. He appears well-developed, well-nourished. VITAL SIGNS: Temperature 97.8, pulse 76, respirations 16, blood pressure 150/81. O2 sat is 99% on room air. HEAD: The patient is normocephalic. Pupils are equal. NECK: Soft, nontender. Trachea is midline. ABDOMEN: Soft, nontender, nondistended. EXTREMITIES: Examination of bilateral upper extremities reveals no pain with shoulder, elbow or wrist motion. He has intact sensation in all fingers. He has good capillary refill in all fingers. Skin is intact. Radial pulses are palpable bilaterally. Examination of left leg reveals no pain with hip, knee or ankle motion. Skin is intact. Dorsalis pedis pulse is palpable. Sensation is intact. Examination of right leg reveals pain with any hip motion. His right leg is shortened and externally rotated. He has no tenderness around his knee, tibia or ankle. Skin is intact. Dorsalis pedis pulse is palpable. X-RAYS X-rays of right hip were reviewed. X-rays and CT scan reveal a displaced right femoral neck fracture. IMPRESSION 1. Displaced right femoral neck fracture. 2. Possible osteoporosis 3. Hypertension. PLAN The treatment options were discussed with the patient. At this point I would recommend a right hip hemiarthroplasty. The risks of surgery include bleeding, infection, injuries to arteries, nerves and blood vessels, hip dislocation, leg length discrepancy, as well as medical complications including blood clot, stroke, heart attack and . All questions were answered. I will plan on surgery today. A mid-level provider in my office, nurse practitioner or PA, may see this patient on a follow-up basis and continue to implement the objective of this plan including: Starting or adjusting medications, injections of muscle, tendon, bursa or joints, cast application, orthotic or brace application, physical therapy, further radiographic studies including x-ray, MRI, CT, ultrasounds or bone scan, vascular studies, neurologic studies, or other specialist consultations, and proceeding with surgical management as appropriate. MD SHERINE Potter/ANJEL /1:32 PM /1:41 PM
[2017-08-23] MEDS ORDERED: CALCTAB19 PO (14:43)
[2017-08-23] MEDS ORDERED: HYDR-3580 PO (14:43)
[2017-08-23] MEDS ORDERED: WALKER/ADULT/FO1 MIS (14:43)
[2017-08-23] MEDS ORDERED: XARE10TA PO (14:43)
[2017-08-23] MEDS ORDERED: VITA500012 PO (14:43)
[2017-08-23] MEDS ORDERED: *MEPERIDINE 25 MG INJ VIAL PERIprocedural Use ONLY ONE (15:07)
--- NOTE | 2017-08-23 15:30 | HHI.HP ---
[facility] Service [facility] Primary Care Physician Fran Garcia MD Admission Diagnosis fracture right femur. Chronic renal disease. Diagnoses: Travel History International Travel<30 Days: No Contact w/Intl Traveler <30 Da: No Traveled to Known Affected Are: No History of Present Illness The patient is a 81-year-old male with a past medical history of hypertension, TIA who came to the emergency room for further evaluation after mechanical fall at home. Patient denies any syncope. Denies any chest pain, shortness of breath, nausea , vomiting, diarrhea or constipation. Pain is fairly controlled by medications. He is found with right hip fracture, went to the OR by Dr. Dia today. Review of Systems Except as stated in HPI: all other systems reviewed are Neg Past Family Social History Past Medical History Hypertension TIA Past Surgical History Appendectomy Hernia repair Reported Medications Reported Meds & Active Scripts Active Calcium 600+D 200 (Calcium Carbonate-Vitamin D) 600-200 Mg-Unit Tab 1 Tab PO BID Ergocalciferol 50,000 Unit Cap 50,000 Units PO Q7D Xarelto (Rivaroxaban) 10 Mg Tab 10 Mg PO DAILY Hydrocodone-Acetaminophen 7.5 Mg-325 Mg Tab 1 Tab PO Q4H PRN Reported Claritin (Loratadine) 10 Mg Cap 10 Mg PO DAILY Aleve Arthritis (Naproxen Sodium) 220 Mg Tab 220 Mg PO BID Allergies: Coded Allergies: No Known Allergies (Verified Adverse Reaction, Unknown, 08/23/17) Social History Denies alcohol use, illicit drug use or tobacco use Physical Exam Vital Signs Vital Signs Date Time Temp Pulse Resp B/P (MAP) Pulse Ox O2 Delivery O2 Flow Rate FiO2 08/23/17 12:46 97.8 76 16 150/81 (104) 99 08/23/17 10:15 97.9 84 16 164/83 (110) 99 Room Air 08/23/17 09:43 16 08/23/17 09:39 17 99 Room Air 08/23/17 08:22 97.8 85 16 203/99 (133) 98 08/23/17 08:22 81 16 99 Room Air Physical Exam GENERAL: This is a well-nourished, well-developed patient, in no apparent distress. SKIN: No rashes, ecchymoses or lesions. Cool and dry. HEAD: Atraumatic. Normocephalic. No temporal or scalp tenderness. EYES: Pupils equal round and reactive. Extraocular motions intact. No scleral icterus. No injection or drainage. ENT: Nose without bleeding, purulent drainage or septal hematoma. Throat without erythema, tonsillar hypertrophy or exudate. Uvula midline. Airway patent. NECK: Trachea midline. No JVD or lymphadenopathy. Supple, nontender, no meningeal signs. CARDIOVASCULAR: Regular rate and rhythm without murmurs, gallops, or rubs. RESPIRATORY: Clear to auscultation. Breath sounds equal bilaterally. No wheezes , rales, or rhonchi. GASTROINTESTINAL: Abdomen soft, non-tender, nondistended. No hepato-splenomegaly , or palpable masses. No guarding. MUSCULOSKELETAL: Extremities without clubbing, cyanosis, or edema. No joint tenderness, effusion, or edema noted. No calf tenderness. Negative Homans sign bilaterally. NEUROLOGICAL: Awake and alert. Cranial nerves II through XII intact. Motor and sensory grossly within normal limits. Five out of 5 muscle strength in all muscle groups. Normal speech. Laboratory Laboratory Tests Test 08/23/17 09:35 White Blood Count 8.9 Red Blood Count 3.71 Hemoglobin 11.1 Hematocrit 33.1 Mean Corpuscular Volume 89.3 Mean Corpuscular Hemoglobin 29.9 Mean Corpuscular Hemoglobin Concent 33.6 Red Cell Distribution Width 18.0 Platelet Count 279 Mean Platelet Volume 8.8 Neutrophils (%) (Auto) 82.4 Lymphocytes (%) (Auto) 5.9 Monocytes (%) (Auto) 11.2 Eosinophils (%) (Auto) 0.3 Basophils (%) (Auto) 0.2 Neutrophils # (Auto) 7.3 Lymphocytes # (Auto) 0.5 Monocytes # (Auto) 1.0 Eosinophils # (Auto) 0.0 Basophils # (Auto) 0.0 CBC Comment DIFF FINAL Differential Comment Prothrombin Time 10.5 Prothromb Time International Ratio 1.0 Activated Partial Thromboplast Time 24.7 Urine Color LIGHT-YELLOW Urine Turbidity CLEAR Urine pH 7.0 Urine Specific [place] 1.009 Urine Protein 100 Urine Glucose (UA) NEG Urine Ketones NEG Urine Occult Blood MOD Urine Nitrite NEG Urine Bilirubin NEG Urine Urobilinogen LESS THAN 2.0 Urine Leukocyte Esterase NEG Urine RBC 81 Urine WBC 2 Urine Bacteria RARE Urine Mucus FEW Microscopic Urinalysis Comment CULT NOT INDICATED Blood Urea Nitrogen 40 Creatinine 1.95 Random Glucose 100 Total Protein 7.5 Albumin 3.7 Calcium Level 8.6 Alkaline Phosphatase 118 Aspartate Amino Transf (AST/SGOT) 21 Alanine Aminotransferase (ALT/SGPT) 18 Total Bilirubin 0.7 Sodium Level 141 Potassium Level 4.1 Chloride Level 107 Carbon Dioxide Level 26.0 Anion Gap 8 Estimat Glomerular Filtration Rate 33 Total Creatine Kinase 146 Thyroid Stimulating Hormone 3rd Gen 2.130 Result Diagram: 08/23/1735 08/23/17934 Imaging Last Impressions Hip and Pelvis X-Ray 08/23/17926 Signed Impressions: Service Date/Time: Wednesday, August 23, 2017 09:56 - CONCLUSION: Intertrochanteric fracture right hip. Maurice Mendez MD FACR Chest X-Ray 08/23/17926 Signed Impressions: Service Date/Time: Wednesday, August 23, 2017 09:56 - CONCLUSION: 1. Cardiomegaly. No acute pulmonary disease. Benji Henley MD Lower Extremity CT 08/23/17 0000 Signed Impressions: Service Date/Time: Wednesday, August 23, 2017 12:03 - CONCLUSION: Basi cervical fracture fracture right hip. Femoral head aligned with the acetabulum. Maurice Mendez MD FACR Caprini VTE Risk Assessment Caprini VTE Risk Assessment: Mod/High Risk (score >= 2) Caprini Risk Assessment Model Point Value = 1 Point Value = 2 Point Value = 3 Point Value = 5 Age 41-60 Minor surgery BMI > 25 kg/m2 Swollen legs Varicose veins or History of unexplained or recurrent spontaneous Oral contraceptives or hormone replacement Sepsis (< 1 month) Serious lung disease, including pneumonia (< 1 month) Abnormal pulmonary function Acute myocardial infarction Congestive heart failure (< 1 month) History of inflammatory bowel disease Medical patient at bed rest Age 61-74 Arthroscopic surgery Major open surgery (> 45 min) Laparoscopic surgery (> 45 min) Malignancy Confined to bed (> 72 hours) Immobilizing plaster cast Central venous access Age >= 75 History of VTE Family history of VTE Factor V Leiden Prothrombin [id number] Lupus anticoagulant Anticardiolipin antibodies Elevated serum homocysteine Heparin-induced thrombocytopenia Other congenital or acquired thrombophilia Stroke (< 1 month) Elective arthroplasty Hip, pelvis, or leg fracture Acute spinal cord injury (< 1 month) Prophylaxis Regimen Total Risk Factor Score Risk Level Prophylaxis Regimen 0-1 Low Early ambulation 2 Moderate Order ONE of the following: *Sequential Compression Device (SCD) *Heparin 5000 units SQ BID 3-4 Higher Order ONE of the following medications: *Heparin 5000 units SQ TID *Enoxaparin/Lovenox 40 mg SQ daily (WT < 150 kg, CrCl > 30 mL/min) *Enoxaparin/Lovenox 30 mg SQ daily (WT < 150 kg, CrCl > 10-29 mL/min) *Enoxaparin/Lovenox 30 mg SQ BID (WT < 150 kg, CrCl > 30 mL/min) AND/OR *Sequential Compression Device (SCD) 5 or more Highest Order ONE of the following medications: *Heparin 5000 units SQ TID (Preferred with Epidurals) *Enoxaparin/Lovenox 40 mg SQ daily (WT < 150 kg, CrCl > 30 mL/min) *Enoxaparin/Lovenox 30 mg SQ daily (WT < 150 kg, CrCl > 10-29 mL/min) *Enoxaparin/Lovenox 30 mg SQ BID (WT < 150 kg, CrCl > 30 mL/min) AND *Sequential Compression Device (SCD) Assessment and Plan Assessment and Plan 81-year-old male with Displaced right femoral neck fracture status post mechanical fall Status post right hip hemiarthroplasty by Dr. Dia 08/23/17 Management per orthopedic doctor Restart home medications as appropriate. DVT prophylaxis SCD/teds, chemical prophylaxis per orthopedic doctor Discussed Condition With Patient, nurse, ED physician Dr. Fonseca Physician Certification 2 Midnight Certification Type: Admission for Inpatient Services Order for Inpatient Services The services are ordered in accordance with Medicare regulations or non- Medicare payer requirements, as applicable. In the case of services not specified as inpatient-only, they are appropriately provided as inpatient services in accordance with the 2-midnight benchmark. Estimated LOS (days): 3 days is the estimated time the patient will need to remain in the hospital, assuming treatment plan goals are met and no additional complications. Post-Hospital Plan: Home Samantha Guerrero MD Aug 23, 2017 15:30
--- NOTE | 2017-08-23 15:32 | HHI.HP ---
[facility] Service [facility] Primary Care Physician Fran Garcia MD Admission Diagnosis fracture right femur. Chronic renal disease. Diagnoses: Travel History International Travel<30 Days: No Contact w/Intl Traveler <30 Da: No Traveled to Known Affected Are: No Past Family Social History Allergies: Coded Allergies: No Known Allergies (Verified Adverse Reaction, Unknown, 08/23/17) Physical Exam Vital Signs Vital Signs Date Time Temp Pulse Resp B/P (MAP) Pulse Ox O2 Delivery O2 Flow Rate FiO2 08/23/17 12:46 97.8 76 16 150/81 (104) 99 08/23/17 10:15 97.9 84 16 164/83 (110) 99 Room Air 08/23/17 09:43 16 08/23/17 09:39 17 99 Room Air 08/23/17 08:22 97.8 85 16 203/99 (133) 98 08/23/17 08:22 81 16 99 Room Air Physical Exam GENERAL: This is a well-nourished, well-developed patient, in no apparent distress. SKIN: No rashes, ecchymoses or lesions. Cool and dry. HEAD: Atraumatic. Normocephalic. No temporal or scalp tenderness. EYES: Pupils equal round and reactive. Extraocular motions intact. No scleral icterus. No injection or drainage. ENT: Nose without bleeding, purulent drainage or septal hematoma. Throat without erythema, tonsillar hypertrophy or exudate. Uvula midline. Airway patent. NECK: Trachea midline. No JVD or lymphadenopathy. Supple, nontender, no meningeal signs. CARDIOVASCULAR: Regular rate and rhythm without murmurs, gallops, or rubs. RESPIRATORY: Clear to auscultation. Breath sounds equal bilaterally. No wheezes , rales, or rhonchi. GASTROINTESTINAL: Abdomen soft, non-tender, nondistended. No hepato-splenomegaly , or palpable masses. No guarding. MUSCULOSKELETAL: Extremities without clubbing, cyanosis, or edema. No joint tenderness, effusion, or edema noted. No calf tenderness. Negative Homans sign bilaterally. NEUROLOGICAL: Awake and alert. Cranial nerves II through XII intact. Motor and sensory grossly within normal limits. Five out of 5 muscle strength in all muscle groups. Normal speech. Laboratory Laboratory Tests Test 08/23/17 09:35 White Blood Count 8.9 Red Blood Count 3.71 Hemoglobin 11.1 Hematocrit 33.1 Mean Corpuscular Volume 89.3 Mean Corpuscular Hemoglobin 29.9 Mean Corpuscular Hemoglobin Concent 33.6 Red Cell Distribution Width 18.0 Platelet Count 279 Mean Platelet Volume 8.8 Neutrophils (%) (Auto) 82.4 Lymphocytes (%) (Auto) 5.9 Monocytes (%) (Auto) 11.2 Eosinophils (%) (Auto) 0.3 Basophils (%) (Auto) 0.2 Neutrophils # (Auto) 7.3 Lymphocytes # (Auto) 0.5 Monocytes # (Auto) 1.0 Eosinophils # (Auto) 0.0 Basophils # (Auto) 0.0 CBC Comment DIFF FINAL Differential Comment Prothrombin Time 10.5 Prothromb Time International Ratio 1.0 Activated Partial Thromboplast Time 24.7 Urine Color LIGHT-YELLOW Urine Turbidity CLEAR Urine pH 7.0 Urine Specific [place] 1.009 Urine Protein 100 Urine Glucose (UA) NEG Urine Ketones NEG Urine Occult Blood MOD Urine Nitrite NEG Urine Bilirubin NEG Urine Urobilinogen LESS THAN 2.0 Urine Leukocyte Esterase NEG Urine RBC 81 Urine WBC 2 Urine Bacteria RARE Urine Mucus FEW Microscopic Urinalysis Comment CULT NOT INDICATED Blood Urea Nitrogen 40 Creatinine 1.95 Random Glucose 100 Total Protein 7.5 Albumin 3.7 Calcium Level 8.6 Alkaline Phosphatase 118 Aspartate Amino Transf (AST/SGOT) 21 Alanine Aminotransferase (ALT/SGPT) 18 Total Bilirubin 0.7 Sodium Level 141 Potassium Level 4.1 Chloride Level 107 Carbon Dioxide Level 26.0 Anion Gap 8 Estimat Glomerular Filtration Rate 33 Total Creatine Kinase 146 Thyroid Stimulating Hormone 3rd Gen 2.130 Result Diagram: 08/23/1735 08/23/1735 Caprini VTE Risk Assessment Caprini Risk Assessment Model Point Value = 1 Point Value = 2 Point Value = 3 Point Value = 5 Age 41-60 Minor surgery BMI > 25 kg/m2 Swollen legs Varicose veins or History of unexplained or recurrent spontaneous Oral contraceptives or hormone replacement Sepsis (< 1 month) Serious lung disease, including pneumonia (< 1 month) Abnormal pulmonary function Acute myocardial infarction Congestive heart failure (< 1 month) History of inflammatory bowel disease Medical patient at bed rest Age 61-74 Arthroscopic surgery Major open surgery (> 45 min) Laparoscopic surgery (> 45 min) Malignancy Confined to bed (> 72 hours) Immobilizing plaster cast Central venous access Age >= 75 History of VTE Family history of VTE Factor V Leiden Prothrombin [id number] Lupus anticoagulant Anticardiolipin antibodies Elevated serum homocysteine Heparin-induced thrombocytopenia Other congenital or acquired thrombophilia Stroke (< 1 month) Elective arthroplasty Hip, pelvis, or leg fracture Acute spinal cord injury (< 1 month) Prophylaxis Regimen Total Risk Factor Score Risk Level Prophylaxis Regimen 0-1 Low Early ambulation 2 Moderate Order ONE of the following: *Sequential Compression Device (SCD) *Heparin 5000 units SQ BID 3-4 Higher Order ONE of the following medications: *Heparin 5000 units SQ TID *Enoxaparin/Lovenox 40 mg SQ daily (WT < 150 kg, CrCl > 30 mL/min) *Enoxaparin/Lovenox 30 mg SQ daily (WT < 150 kg, CrCl > 10-29 mL/min) *Enoxaparin/Lovenox 30 mg SQ BID (WT < 150 kg, CrCl > 30 mL/min) AND/OR *Sequential Compression Device (SCD) 5 or more Highest Order ONE of the following medications: *Heparin 5000 units SQ TID (Preferred with Epidurals) *Enoxaparin/Lovenox 40 mg SQ daily (WT < 150 kg, CrCl > 30 mL/min) *Enoxaparin/Lovenox 30 mg SQ daily (WT < 150 kg, CrCl > 10-29 mL/min) *Enoxaparin/Lovenox 30 mg SQ BID (WT < 150 kg, CrCl > 30 mL/min) AND *Sequential Compression Device (SCD) Physician Certification Order for Inpatient Services The services are ordered in accordance with Medicare regulations or non- Medicare payer requirements, as applicable. In the case of services not specified as inpatient-only, they are appropriately provided as inpatient services in accordance with the 2-midnight benchmark. days is the estimated time the patient will need to remain in the hospital, assuming treatment plan goals are met and no additional complications. Samantha Guerrero MD Aug 23, 2017 15:32
[2017-08-23] MEDS ORDERED: *LABETALOL HCL 100 MG/20 ML VIAL PERIprocedural Use ONLY ONE ×2 (15:46→16:46)
[2017-08-23] MEDS ORDERED: DO NOT ADM ANY ANTICOAGULANT DRUGS PRN (16:00)
--- NOTE | 2017-08-23 16:22 | RADRPT ---
EXAM DATE/TIME: 08/23/2017 15:35 [facility] COMPARISON: HIP RIGHT (AP&LAT 2/3VWS) W AP PELVIS, August 23, 2017, 9:56. INDICATIONS : Post op. MEDICAL HISTORY : Hypertension. Cerebrovascular disease. SURGICAL HISTORY : Appendectomy. hernia repair ENCOUNTER: Subsequent ACUITY: 1 day PAIN SCORE: 0/10 LOCATION: Right Hip. FINDINGS: There are postsurgical changes with operative reduction and internal fixation of the previously seen fracture. The alignment is anatomic. CONCLUSION: Postsurgical changes as above. Benji Henley MD on August 23, 2017 at 16:19 Board Certified Radiologist. This report was verified electronically.
[2017-08-23] MEDS ORDERED: *morphine SULFATE 4 MG/ML PERIprocedure ONLY ONE (16:54)
[2017-08-23] MEDS ORDERED: *ENALAPRILAT 1.25 MG/ML VIAL PERIprocedural Use ONLY ONE (17:31)
[2017-08-23] MEDS ORDERED: TRANEXAMIC ACID INJ 1,000 MG in SODIUM CHLORIDE 0.9% INJ 100 ML IV ONE (17:45)
[2017-08-23] MEDS ORDERED: ENALAPRILAT 1.25 MG/ML VIAL IV PUSH ONE (18:00)
[2017-08-23] MEDS ORDERED: AMLO5TAB2 PO (18:06)
[2017-08-23] MEDS ORDERED: hydrALAZINE HCL 20 MG/ML VIAL ONE (18:12)
[2017-08-23] MEDS ORDERED: *morphine SULFATE 10 MG/ML PERIprocedure ONLY ONE (18:21)
[2017-08-23] MEDS ORDERED: hydrALAZINE HCL 20 MG/ML VIAL IV PRN (18:45)
[2017-08-23] MEDS ORDERED: hydrALAZINE HCL 10 MG TAB PO PRN (18:45)
[2017-08-23] MEDS ORDERED: ENALAPRILAT 2.5 MG/2 ML VIAL IV PUSH PRN (18:45)
[2017-08-23] MEDS: DOCUSATE SODIUM 50 MG/SENNA 8.6 MG TAB PO SCH (19:44)
[2017-08-23] MEDS: ceFAZolin 2 GM PREMIX 50 ML IV SCH (19:45)
[2017-08-23] MEDS: SODIUM CHLORIDE 0.9% FLUSH 10 ML FLUSH IV FLUSH SCH (19:45)
[2017-08-23 20:25] VITALS: BP 152/73; PULSE 82; RESP 17; TEMP 97; O2SAT 97
--- NOTE | 2017-08-23 21:14 | EKG ---
Date Performed: 08/23/2017 Time Performed: 10:18:30 PTAGE: 81 years EKG: Sinus rhythm MARKED LEFT AXIS DEVIATION ABNORMAL ECG PREVIOUS TRACING : 05/31/2017 08.02 Compared to prior tracing no significant change DOCTOR: Jerel Mo Interpretating Date/Time 08/23/2017 21:13:52
[2017-08-24] VITALS (8 sets, daily range): BP systolic 118–169; BP diastolic 62–76; PULSE 83–95; RESP 18; TEMP 96.5–98.1; O2SAT 95–98
[2017-08-24] MEDS: ceFAZolin 2 GM PREMIX 50 ML IV SCH ×2 (01:26→09:04)
[2017-08-24] MEDS: VANCOMYCIN INJ 1,000 MG in SODIUM CHLOR 0.9% 250 ML INJ 250 ML IV SCH ×2 (02:03→15:40)
[2017-08-24 05:02] LABS: AUTOMATED NEUTROPHIL # 6.4 TH/MM3 (1.8-7.7); BASOPHIL % 0.4 % (0.0-2.0); EOSINOPHIL % 0.1 % (0.0-4.0); HEMATOCRIT 28.5 % (39.0-51.0); HEMOGLOBIN 9.4 GM/DL (13.0-17.0); LYMPHOCYTE # 0.6 TH/MM3 (1.0-4.8); MEAN CELL VOLUME 90.1 FL (80.0-100.0); MEAN CORPUSCULAR HEMOGLOBIN 29.6 PG (27.0-34.0); MEAN CORPUSCULAR HGB CONC 32.8 % (32.0-36.0); MEAN PLATELET VOLUME 8.1 FL (7.0-11.0); MONO % 12.4 % (0.0-8.0); NEUT % 80.1 % (16.0-70.0); PLATELET COUNT 241 TH/MM3 (150-450); RED BLOOD COUNT 3.17 MIL/MM3 (4.50-5.90); RED CELL DISTRIBUTION WIDTH 17.9 % (11.6-17.2)
[2017-08-24 05:29] LABS: BICARBONATE 24.7 MEQ/L (21.0-32.0); CALCIUM 8.2 MG/DL (8.5-10.1); CREATININE 2.11 MG/DL (0.60-1.30)
[2017-08-24] MEDS: SODIUM CHLOR 0.9% 1000 ML INJ 1,000 ML IV SCH ×3 (05:30→19:23)
--- NOTE | 2017-08-24 07:04 | PD.ORT.PN ---
Subjective Subjective Remarks Resting comfortably with no new complaints Objective Vitals Vital Signs Date Time Temp Pulse Resp B/P (MAP) Pulse Ox O2 Delivery O2 Flow Rate FiO2 08/24/17 04:35 96.8 90 18 149/76 (100) 97 08/24/17 00:35 98.1 83 18 118/64 (82) 97 08/23/17 20:25 97.0 82 17 152/73 (99) 97 08/23/17 18:30 98.4 75 14 140/66 (90) 99 Nasal Cannula 2 08/23/17 18:15 68 14 137/64 (88) 100 Nasal Cannula 2 08/23/17 18:00 69 14 164/77 (106) 100 Nasal Cannula 2 08/23/17 17:45 73 17 170/78 (108) 100 Nasal Cannula 2 08/23/17 17:30 72 16 167/79 (108) 95 Nasal Cannula 2 08/23/17 17:15 70 14 171/79 (109) 100 Nasal Cannula 2 08/23/17 17:00 69 16 164/74 (104) 100 Nasal Cannula 2 08/23/17 16:45 78 16 194/90 (124) 100 Nasal Cannula 2 08/23/17 16:30 78 14 175/81 (112) 100 Nasal Cannula 2 08/23/17 16:15 86 24 166/84 (111) 100 Nasal Cannula 2 08/23/17 16:00 76 15 175/84 (114) 100 Nasal Cannula 2 08/23/17 15:45 76 13 145/72 (96) 100 Nasal Cannula 2 08/23/17 15:30 71 12 178/81 (113) 99 Nasal Cannula 2 08/23/17 15:15 70 17 167/83 (111) 99 Nasal Cannula 2 08/23/17 15:05 97.6 73 17 184/76 (112) 99 Nasal Cannula 2 08/23/17 12:46 97.8 76 16 150/81 (104) 99 08/23/17 10:15 97.9 84 16 164/83 (110) 99 Room Air 08/23/17 09:43 16 08/23/17 09:39 17 99 Room Air 08/23/17 08:22 97.8 85 16 203/99 (133) 98 08/23/17 08:22 81 16 99 Room Air I/O 08/23/17 08/23/17 08/23/17 08/24/17 08/24/17 08/24/17 07:00 15:00 23:00 07:00 15:00 23:00 Intake Total 800 ml 709 ml 360 ml Output Total 1550 ml 715 ml 200 ml Balance -750 ml -6 ml 160 ml Intake Oral 270 ml 360 ml IV Total 439 ml Other 800 ml Output Urine Total 700 ml 200 ml Drainage Total 15 ml Estimated Blood Loss 1550 ml # Voids 0 # Bowel Movements 0 0 Result Diagram: 08/24/17 0446 08/24/17 0446 Other Results Laboratory Tests Test 08/23/17 09:35 Prothromb Time International Ratio 1.0 RATIO Prothrombin Time 10.5 SEC (9.8-11.6) Imaging Last 24 hours Impressions Hip and Pelvis X-Ray 08/23/17926 Signed Impressions: Service Date/Time: Wednesday, August 23, 2017 09:56 - CONCLUSION: Intertrochanteric fracture right hip. Maurice Mendez MD FACR Chest X-Ray 08/23/17926 Signed Impressions: Service Date/Time: Wednesday, August 23, 2017 09:56 - CONCLUSION: 1. Cardiomegaly. No acute pulmonary disease. Benji Henley MD Lower Extremity CT 08/23/17 0000 Signed Impressions: Service Date/Time: Wednesday, August 23, 2017 12:03 - CONCLUSION: Basi cervical fracture fracture right hip. Femoral head aligned with the acetabulum. Maurice Mendez MD FACR Objective Remarks Right lower extremity: Clean dry dressings intact with drain in place. Knee immobilizer in position. Mild swelling of hip Assessment & Plan Assessment and Plan Right hip hemiarthroplasty POD 1 Weightbearing as tolerated twice a day with physical therapy DC drain with dressing change Lovenox Rehabilitation planning Follow-up Dr. Dia or [place] in 2 weeks Incentive spirometry Jez Dowling Jr. Aug 24, 2017 07:04
--- NOTE | 2017-08-24 08:54 | HHI.PR ---
Subjective Remarks follow-up right hip fracture, acute kidney injury, hypertension. The patient states that he is having pain occasionally in the right hip. He states that the pain is worse with movement. Denies chest pain, dyspnea, nausea, vomiting, diarrhea, constipation. Objective Vitals Vital Signs Date Time Temp Pulse Resp B/P (MAP) Pulse Ox O2 Delivery O2 Flow Rate FiO2 08/24/17 04:35 96.8 90 18 149/76 (100) 97 08/24/17 00:35 98.1 83 18 118/64 (82) 97 08/23/17 20:25 97.0 82 17 152/73 (99) 97 08/23/17 18:30 98.4 75 14 140/66 (90) 99 Nasal Cannula 2 08/23/17 18:15 68 14 137/64 (88) 100 Nasal Cannula 2 08/23/17 18:00 69 14 164/77 (106) 100 Nasal Cannula 2 08/23/17 17:45 73 17 170/78 (108) 100 Nasal Cannula 2 08/23/17 17:30 72 16 167/79 (108) 95 Nasal Cannula 2 08/23/17 17:15 70 14 171/79 (109) 100 Nasal Cannula 2 08/23/17 17:00 69 16 164/74 (104) 100 Nasal Cannula 2 08/23/17 16:45 78 16 194/90 (124) 100 Nasal Cannula 2 08/23/17 16:30 78 14 175/81 (112) 100 Nasal Cannula 2 08/23/17 16:15 86 24 166/84 (111) 100 Nasal Cannula 2 08/23/17 16:00 76 15 175/84 (114) 100 Nasal Cannula 2 08/23/17 15:45 76 13 145/72 (96) 100 Nasal Cannula 2 08/23/17 15:30 71 12 178/81 (113) 99 Nasal Cannula 2 08/23/17 15:15 70 17 167/83 (111) 99 Nasal Cannula 2 08/23/17 15:05 97.6 73 17 184/76 (112) 99 Nasal Cannula 2 08/23/17 12:46 97.8 76 16 150/81 (104) 99 08/23/17 10:15 97.9 84 16 164/83 (110) 99 Room Air 08/23/17 09:43 16 08/23/17 09:39 17 99 Room Air I/O 08/23/17 08/23/17 08/23/17 08/24/17 08/24/17 08/24/17 07:00 15:00 23:00 07:00 15:00 23:00 Intake Total 800 ml 709 ml 360 ml Output Total 1550 ml 715 ml 200 ml Balance -750 ml -6 ml 160 ml Intake Oral 270 ml 360 ml IV Total 439 ml Other 800 ml Output Urine Total 700 ml 200 ml Drainage Total 15 ml Estimated Blood Loss 1550 ml # Voids 0 # Bowel Movements 0 0 Result Diagram: 08/24/17 0446 08/24/17 0446 Imaging Last Impressions Hip and Pelvis X-Ray 08/23/17 1346 Signed Impressions: Service Date/Time: Wednesday, August 23, 2017 15:35 - CONCLUSION: Postsurgical changes as above. Benji Henley MD Chest X-Ray 08/23/17 0927 Signed Impressions: Service Date/Time: Wednesday, August 23, 2017 09:56 - CONCLUSION: 1. Cardiomegaly. No acute pulmonary disease. Benji Henley MD Lower Extremity CT 08/23/17 0000 Signed Impressions: Service Date/Time: Wednesday, August 23, 2017 12:03 - CONCLUSION: Basi cervical fracture fracture right hip. Femoral head aligned with the acetabulum. Maurice Mendez MD FACR Objective Remarks General: Elderly male in no acute distress. Hard of hearing. Heart: Regular rate and rhythm. No murmur. Lungs: Clear to auscultation bilaterally. No wheezes, rales, or rhonchi. Breathing is nonlabored. Abdomen: Soft, nontender, nondistended. Extremities: No lower extremity edema. SCDs. Psych: Alert and oriented. Procedures 08/23/17 right hip hemiarthroplasty Urinary Catheter: No Vascular Central Line Catheter: No A/P Assessment and Plan 1. Right femoral neck fracture: Status post mechanical fall. Status post right hip hemiarthroplasty on 08/23/17. Management per orthopedic surgery. Continue pain control, bowel regimen. 2. Hypertension: Continue amlodipine. 3. Acute kidney injury: Uncertain if there is a component of chronic kidney disease. Patient had normal creatinine until March 2017. Creatinine has been trending up over the past few months. Consult nephrology. Avoid nephrotoxins. Continue IV fluids. 4. DVT prophylaxis: Lovenox per orthopedic surgery. Discharge Planning Patient will likely need SNF/rehabilitation at discharge. Dick Pearson MD Aug 24, 2017 08:54
[2017-08-24] MEDS ORDERED: amLODIPine BESYLATE 5 MG TAB PO SCH (09:00)
[2017-08-24] MEDS: ACETAMINOPHEN/HYDROcodone 325 MG/10 MG TAB PO PRN (09:03)
[2017-08-24] MEDS: DOCUSATE SODIUM 50 MG/SENNA 8.6 MG TAB PO SCH ×2 (09:03→19:22)
[2017-08-24] MEDS: CHOLECALCIFEROL (VIT D3) 5000 UNIT CAP PO SCH (09:03)
[2017-08-24] MEDS: SODIUM CHLORIDE 0.9% FLUSH 10 ML FLUSH IV FLUSH SCH ×2 (09:04→19:22)
[2017-08-24] MEDS: ENOXAPARIN SODIUM 30 MG/0.3 ML SYRINGE SQ SCH (15:40)
--- NOTE | 2017-08-24 15:40 | PD.CONS ---
HPI Service Nephrology Consult Requested By Dr. Pearson Reason for Consult Acute renal failure Primary Care Physician Fran Garcia MD History of Present Illness Patient is a 81-year-old white male with history of left and right hip fracture he underwent surgery and this is creatinine went up from 1.95-2.11, patient is recovering from surgery, he denies any chest pain shortness of breath he denies any prostate issues or kidney stones, he does have weak stream. Review of Systems Constitutional: COMPLAINS OF: Fatigue Musculoskeletal: COMPLAINS OF: Joint pain, Muscle aches, Stiffness, Back pain Past Family Social History Allergies: Coded Allergies: No Known Allergies (Verified Adverse Reaction, Unknown, 08/23/17) Past Medical History Hypertension TIA Past Surgical History Appendectomy Hernia repair Reported Medications Reported Meds & Active Scripts Active Calcium 600+D 200 (Calcium Carbonate-Vitamin D) 600-200 Mg-Unit Tab 1 Tab PO BID Ergocalciferol 50,000 Unit Cap 50,000 Units PO Q7D Xarelto (Rivaroxaban) 10 Mg Tab 10 Mg PO DAILY Hydrocodone-Acetaminophen 7.5 Mg-325 Mg Tab 1 Tab PO Q4H PRN Reported Amlodipine (Amlodipine Besylate) 5 Mg Tab 5 Mg PO DAILY Claritin (Loratadine) 10 Mg Cap 10 Mg PO DAILY Aleve Arthritis (Naproxen Sodium) 220 Mg Tab 220 Mg PO BID Active Ordered Medications Current Medications Medications (Trade) Dose Ordered Sig/Dirk Route Start Time Stop Time Status Last Admin Sodium Chloride 1,000 ml @ 100 mls/hr Q10H IV 08/23/17 09:30 08/23/17 15:11 (NS Flush) 2 ml UNSCH PRN IV FLUSH 08/23/17 11:30 (NS Flush) 2 ml BID IV FLUSH 08/23/17 21:00 08/24/17 09:04 (Tylenol) 650 mg Q4H PRN PO 08/23/17 11:30 (Zofran Inj) 4 mg Q6H PRN IVP 08/23/17 11:30 (Compazine Supp) 25 mg Q12H PRN RECTAL 08/23/17 11:30 (Restoril) 15 mg HS PRN PO 08/23/17 11:30 (Narcan Inj) 0.4 mg UNSCH PRN IV PUSH 08/23/17 11:30 (Chrissy-Colace) 1 tab BID PO 08/23/17 21:00 08/24/17 09:03 (Milk Of Magnesia Liq) 30 ml Q12H PRN PO 08/23/17 11:30 (Senokot) 17.2 mg Q12H PRN PO 08/23/17 11:30 (Dulcolax Supp) 10 mg DAILY PRN RECTAL 08/23/17 11:30 (Lactulose Liq) 30 ml DAILY PRN PO 08/23/17 11:30 ([place] 5-325 Mg) 1 tab Q4H PRN PO 08/23/17 11:30 ([place] 10-325 Mg) 1 tab Q4H PRN PO 08/23/17 11:30 08/24/17 09:03 (Chlorhexidine 2% Cloth) 3 pack [employer] PRN TOPICAL 08/23/17 13:30 08/26/17 13:29 (Lovenox Inj) 30 mg Q24H SQ 08/24/17 14:00 (Morphine Inj) 3 mg Q3H PRN IV PUSH 08/23/17 14:00 (Vitamin D3) 5,000 units DAILY PO 08/24/17 09:00 08/24/17 09:03 Miscellaneous Information ALL NURSING DEPARTME... UNSCH PRN .XX 08/23/17 16:00 08/24/17 15:59 (Apresoline Inj) 5 mg Q10M PRN IV 08/23/17 18:45 08/24/17 18:44 08/23/17 18:11 (Apresoline) 10 mg Q6HR PRN PO 08/23/17 18:45 (Norvasc) 5 mg DAILY PO 08/24/17 09:00 08/24/17 09:03 Family History Noncontributory Social History Denies smoking or alcohol use Physical Exam Vital Signs Vital Signs Date Time Temp Pulse Resp B/P (MAP) Pulse Ox O2 Delivery O2 Flow Rate FiO2 08/24/17 12:00 96.5 89 18 160/72 (101) 98 08/24/17 09:54 21 08/24/17 08:00 97.5 88 18 162/69 (100) 95 08/24/17 04:35 96.8 90 18 149/76 (100) 97 08/24/17 00:35 98.1 83 18 118/64 (82) 97 08/23/17 20:25 97.0 82 17 152/73 (99) 97 08/23/17 18:30 98.4 75 14 140/66 (90) 99 Nasal Cannula 2 08/23/17 18:15 68 14 137/64 (88) 100 Nasal Cannula 2 08/23/17 18:00 69 14 164/77 (106) 100 Nasal Cannula 2 08/23/17 17:45 73 17 170/78 (108) 100 Nasal Cannula 2 08/23/17 17:30 72 16 167/79 (108) 95 Nasal Cannula 2 08/23/17 17:15 70 14 171/79 (109) 100 Nasal Cannula 2 08/23/17 17:00 69 16 164/74 (104) 100 Nasal Cannula 2 08/23/17 16:45 78 16 194/90 (124) 100 Nasal Cannula 2 08/23/17 16:30 78 14 175/81 (112) 100 Nasal Cannula 2 08/23/17 16:15 86 24 166/84 (111) 100 Nasal Cannula 2 08/23/17 16:00 76 15 175/84 (114) 100 Nasal Cannula 2 08/23/17 15:45 76 13 145/72 (96) 100 Nasal Cannula 2 Physical Exam GENERAL: Well-nourished, well-developed patient. SKIN: Warm and dry. HEAD: Normocephalic. EYES: No scleral icterus. No injection or drainage. NECK: Supple, trachea midline. No JVD or lymphadenopathy. CARDIOVASCULAR: Regular rate and rhythm without murmurs, gallops, or rubs. RESPIRATORY: Breath sounds equal bilaterally. No accessory muscle use. GASTROINTESTINAL: Abdomen soft, non-tender, nondistended. EXTREMITIES: No cyanosis, or edema. NEUROLOGICAL: Awake, alert, and oriented x 3. Non-focal. Laboratory Laboratory Tests Test 08/24/17 04:46 White Blood Count 8.0 Red Blood Count 3.17 Hemoglobin 9.4 Hematocrit 28.5 Mean Corpuscular Volume 90.1 Mean Corpuscular Hemoglobin 29.6 Mean Corpuscular Hemoglobin Concent 32.8 Red Cell Distribution Width 17.9 Platelet Count 241 Mean Platelet Volume 8.1 Neutrophils (%) (Auto) 80.1 Lymphocytes (%) (Auto) 7.0 Monocytes (%) (Auto) 12.4 Eosinophils (%) (Auto) 0.1 Basophils (%) (Auto) 0.4 Neutrophils # (Auto) 6.4 Lymphocytes # (Auto) 0.6 Monocytes # (Auto) 1.0 Eosinophils # (Auto) 0.0 Basophils # (Auto) 0.0 CBC Comment DIFF FINAL Differential Comment Blood Urea Nitrogen 40 Creatinine 2.11 Random Glucose 105 Calcium Level 8.2 Sodium Level 142 Potassium Level 5.0 Chloride Level 109 Carbon Dioxide Level 24.7 Anion Gap 8 Estimat Glomerular Filtration Rate 30 Result Diagram: 08/24/17 0446 08/24/17 0446 Imaging Last Impressions Hip and Pelvis X-Ray 08/23/17 1346 Signed Impressions: Service Date/Time: Wednesday, August 23, 2017 15:35 - CONCLUSION: Postsurgical changes as above. Benji Henley MD Chest X-Ray 08/23/17 0927 Signed Impressions: Service Date/Time: Wednesday, August 23, 2017 09:56 - CONCLUSION: 1. Cardiomegaly. No acute pulmonary disease. Benji Henley MD Lower Extremity CT 08/23/17 0000 Signed Impressions: Service Date/Time: Wednesday, August 23, 2017 12:03 - CONCLUSION: Basi cervical fracture fracture right hip. Femoral head aligned with the acetabulum. Maurice Mendez MD FACR Assessment and Plan Problem List: (1) Acute renal failure ICD Codes: N17.9 - Acute kidney failure, unspecified Plan: He has surgery and I will start him on IV fluid normal saline and follow BMP Avoid nephrotoxin Avoid dye studies add Flomax 0.4 mg q hs Follow BMP Obtain baseline ultrasound of the kidneys (2) Hip fracture ICD Codes: S72.009A - Fracture of unspecified part of neck of unspecified femur , initial encounter for closed fracture Plan: Status post surgery (3) CKD (chronic kidney disease) stage 3, GFR 30-59 ml/min ICD Codes: N18.3 - Chronic kidney disease, stage 3 (moderate) Plan: Did have elevated creatinine Kerline Aguilera MD Aug 24, 2017 15:40
[2017-08-24] MEDS: TAMSULOSIN HCL 0.4 MG CAP PO SCH (18:00)
[2017-08-24] MEDS: MAGNESIUM HYDROXIDE SUSP 30 ML CUP PO PRN (19:22)
--- NOTE | 2017-08-24 19:42 | RADRPT ---
EXAM DATE/TIME: 08/24/2017 17:14 [facility] COMPARISON: No previous studies available for comparison. INDICATIONS : Increased BUN/Creatnine. MEDICAL HISTORY : Stroke. Hypercholesterolemia. Hypertension. Hearing problems. Neck pain. Anticoagulant therapy. Arthr itis. SURGICAL HISTORY : Appendectomy. Hernia repair. ENCOUNTER: Initial ACUITY: 1 day PAIN SCORE: 10 LOCATION: Bilateral flank MEASUREMENTS: RIGHT KIDNEY: 9.8 x 4.9 x 5.0 cm LEFT KIDNEY: 10.5 x 3.7 x 5.5 cm FINDINGS: RIGHT KIDNEY: Mild increased echogenicity is identified in the renal cortex. An 8 mm cyst is identified in the midp ole. 4 mm stone is identified the midpole. There is no evidence of hydronephrosis. LEFT KIDNEY: Of increased echogenicity is identified in the renal cortex. A millimeter stone is identified in the lower pole. There is no evidence of hydronephrosis or suspicious lesions. BLADDER: Within normal limits given the degree of distension. Prostate is enlarged. CONCLUSION: 1. Parenchymal renal disease with increased echogenicity. 2. No evidence of hydronephrosis. 3. Bilateral nephrolithiasis. 4. Right renal cyst. 5. Prostatomegaly. Antonio Fischer MD on August 24, 2017 at 19:38 Board Certified Radiologist. This report was verified electronically.
--- NOTE | 2017-08-25 07:02 | PD.ORT.PN ---
Subjective Subjective Remarks Resting comfortably with no new complaints Objective Vitals Vital Signs Date Time Temp Pulse Resp B/P (MAP) Pulse Ox O2 Delivery O2 Flow Rate FiO2 08/24/17 23:29 97.8 89 18 139/65 (89) 95 08/24/17 19:40 98.1 93 18 149/62 (91) 98 08/24/17 17:16 98 21 08/24/17 16:00 96.9 95 18 169/69 (102) 97 08/24/17 12:00 96.5 89 18 160/72 (101) 98 08/24/17 09:54 21 08/24/17 08:00 97.5 88 18 162/69 (100) 95 I/O 08/24/17 08/24/17 08/24/17 08/25/17 08/25/17 08/25/17 07:00 15:00 23:00 07:00 15:00 23:00 Intake Total 360 ml 530 ml 724 ml 480 ml Output Total 200 ml 5 ml 370 ml Balance 160 ml 530 ml 719 ml 110 ml Intake Oral 360 ml 480 ml 480 ml 480 ml IV Total 50 ml 244 ml Output Urine Total 200 ml 350 ml Drainage Total 5 ml 20 ml # Voids 4 1 # Bowel Movements 0 0 0 0 Result Diagram: 08/24/176 08/24/17 0446 Imaging Last 24 hours Impressions Hip and Pelvis X-Ray 08/23/17926 Signed Impressions: Service Date/Time: Wednesday, August 23, 2017 09:56 - CONCLUSION: Intertrochanteric fracture right hip. Maurice Mendez MD FACR Chest X-Ray 08/23/17926 Signed Impressions: Service Date/Time: Wednesday, August 23, 2017 09:56 - CONCLUSION: 1. Cardiomegaly. No acute pulmonary disease. Benji Henley MD Lower Extremity CT 08/23/17 0000 Signed Impressions: Service Date/Time: Wednesday, August 23, 2017 12:03 - CONCLUSION: Basi cervical fracture fracture right hip. Femoral head aligned with the acetabulum. Maurice Mendez MD FACR Objective Remarks Right lower extremity: Clean dry dressings intact with drain in place. Knee immobilizer in position. Mild swelling of hip Assessment & Plan Assessment and Plan Right hip hemiarthroplasty POD 2 Weightbearing as tolerated twice a day with physical therapy dressing change Lovenox Rehabilitation planning Ortho clear for rehabilitation Follow-up Dr. Dia or [place] in 2 weeks Incentive spirometry Jez Dowling Jr. Aug 25, 2017 07:02
[2017-08-25 08:00] VITALS: BP 163/68; PULSE 87; RESP 17; TEMP 96.5; O2SAT 96
--- NOTE | 2017-08-25 08:26 | HHI.PR ---
Subjective Remarks Follow up acute kidney injury, hypertension, hip fracture. Patient has no complaints at this time. Had nausea/vomiting yesterday, but that resolved. Denies chest pain, dyspnea. Pain is well controlled. Objective Vitals Vital Signs Date Time Temp Pulse Resp B/P (MAP) Pulse Ox O2 Delivery O2 Flow Rate FiO2 08/25/17 08:00 96.5 87 17 163/68 (99) 96 08/24/17 23:29 97.8 89 18 139/65 (89) 95 08/24/17 19:40 98.1 93 18 149/62 (91) 98 08/24/17 17:16 98 21 08/24/17 16:00 96.9 95 18 169/69 (102) 97 08/24/17 12:00 96.5 89 18 160/72 (101) 98 08/24/17 09:54 21 I/O 08/24/17 08/24/17 08/24/17 08/25/17 08/25/17 08/25/17 06:59 14:59 22:59 06:59 14:59 22:59 Intake Total 360 ml 530 ml 724 ml 480 ml Output Total 200 ml 5 ml 370 ml Balance 160 ml 530 ml 719 ml 110 ml Intake Oral 360 ml 480 ml 480 ml 480 ml IV Total 50 ml 244 ml Output Urine Total 200 ml 350 ml Drainage Total 5 ml 20 ml # Voids 4 1 # Bowel Movements 0 0 0 0 Result Diagram: 08/24/17 0446 08/24/17 0446 Imaging Last Impressions Renal Ultrasound 08/24/17 0000 Signed Impressions: Service Date/Time: Thursday, August 24, 2017 17:14 - CONCLUSION: 1. Parenchymal renal disease with increased echogenicity. 2. No evidence of hydronephrosis. 3. Bilateral nephrolithiasis. 4. Right renal cyst. 5. Prostatomegaly. Antonio Fischer MD Hip and Pelvis X-Ray 08/23/17 1346 Signed Impressions: Service Date/Time: Wednesday, August 23, 2017 15:35 - CONCLUSION: Postsurgical changes as above. Benji Henley MD Chest X-Ray 08/23/17 0932 Signed Impressions: Service Date/Time: Wednesday, August 23, 2017 09:56 - CONCLUSION: 1. Cardiomegaly. No acute pulmonary disease. Benji Henley MD Lower Extremity CT 08/23/17 0000 Signed Impressions: Service Date/Time: Wednesday, August 23, 2017 12:03 - CONCLUSION: Basi cervical fracture fracture right hip. Femoral head aligned with the acetabulum. Maurice Mendez MD FACR Objective Remarks General: Elderly male in no acute distress. Hard of hearing. Heart: Regular rate and rhythm. No murmur. Lungs: Clear to auscultation bilaterally. No wheezes, rales, or rhonchi. Breathing is nonlabored. Abdomen: Soft, nontender, nondistended. Extremities: No lower extremity edema. SCDs. Psych: Alert and oriented. Procedures 08/23/17 right hip hemiarthroplasty Urinary Catheter: No Vascular Central Line Catheter: No A/P Assessment and Plan 1. Right femoral neck fracture: Status post mechanical fall. Status post right hip hemiarthroplasty on 08/23/17. Management per orthopedic surgery. Continue pain control, bowel regimen. 2. Hypertension: BP elevated. Increase amlodipine. 3. Acute kidney injury: Uncertain if there is a component of chronic kidney disease. Patient had normal creatinine until March 2017. Creatinine has been trending up over the past few months. Appreciate nephrology recommendations. Renal ultrasound report noted. Avoid nephrotoxins. Continue IV fluids. Labs are pending today. 4. DVT prophylaxis: Lovenox per orthopedic surgery. Discharge Planning Plan for discharge to SNF soon, pending labs and nephrology clearance. Dick Pearson MD Aug 25, 2017 08:26
[2017-08-25] MEDS: SODIUM CHLORIDE 0.9% FLUSH 10 ML FLUSH IV FLUSH SCH ×2 (09:11→21:43)
[2017-08-25] MEDS: CHOLECALCIFEROL (VIT D3) 5000 UNIT CAP PO SCH (09:11)
[2017-08-25] MEDS: DOCUSATE SODIUM 50 MG/SENNA 8.6 MG TAB PO SCH ×2 (09:12→21:43)
[2017-08-25] MEDS: SODIUM CHLOR 0.9% 1000 ML INJ 1,000 ML IV SCH (09:14)
[2017-08-25 09:44] LABS: AUTOMATED NEUTROPHIL # 6.7 TH/MM3 (1.8-7.7); BASOPHIL % 0.3 % (0.0-2.0); EOSINOPHIL # 0.1 TH/MM3 (0-0.4); EOSINOPHIL % 0.7 % (0.0-4.0); HEMATOCRIT 23.8 % (39.0-51.0); HEMOGLOBIN 7.9 GM/DL (13.0-17.0); LYMPH % 6.7 % (9.0-44.0); LYMPHOCYTE # 0.6 TH/MM3 (1.0-4.8); MEAN CELL VOLUME 89.8 FL (80.0-100.0); MEAN CORPUSCULAR HEMOGLOBIN 29.8 PG (27.0-34.0); MEAN CORPUSCULAR HGB CONC 33.1 % (32.0-36.0); MEAN PLATELET VOLUME 8.3 FL (7.0-11.0); MONO % 12.1 % (0.0-8.0); NEUT % 80.2 % (16.0-70.0); PLATELET COUNT 219 TH/MM3 (150-450); RED BLOOD COUNT 2.65 MIL/MM3 (4.50-5.90); RED CELL DISTRIBUTION WIDTH 18.3 % (11.6-17.2); WHITE BLOOD COUNT 8.4 TH/MM3 (4.0-11.0)
[2017-08-25 10:05] LABS: BICARBONATE 26.2 MEQ/L (21.0-32.0); CREATININE 2.49 MG/DL (0.60-1.30)
[2017-08-25 12:00] VITALS: BP 150/66; PULSE 95; RESP 18; TEMP 96.2; O2SAT 97
[2017-08-25] MEDS: ACETAMINOPHEN/HYDROcodone 325 MG/10 MG TAB PO PRN (12:34)
[2017-08-25] MEDS: ENOXAPARIN SODIUM 30 MG/0.3 ML SYRINGE SQ SCH (13:26)
[2017-08-25 16:00] VITALS: BP 146/67; PULSE 82; RESP 18; TEMP 97; O2SAT 99
--- NOTE | 2017-08-25 16:17 | HHI.NPPN ---
Subjective History of Present Illness 81-year-old with hip fracture status post surgery with acute renal failure Review of Systems General Constitutional: Fatigue Objective Data Data 08/25/17 08/26/17 19:00 07:00 Intake Total 600 ml Output Total 725 ml Balance -125 ml Intake Oral 600 ml Output Urine Total 725 ml # Bowel Movements 0 Vital Signs Date Time Temp Pulse Resp B/P (MAP) Pulse Ox O2 Delivery O2 Flow Rate FiO2 08/25/17 12:00 96.2 95 18 150/66 (94) 97 08/25/17 08:00 96.5 87 17 163/68 (99) 96 08/24/17 23:29 97.8 89 18 139/65 (89) 95 08/24/17 19:40 98.1 93 18 149/62 (91) 98 08/24/17 17:16 98 21 -: 08/25/17 0852 08/25/17 0852 Physical Exam General Appearance: Well Developed Neck Neck Exam: Neck Supple Pulmonary Resp Exam: Clear Bilaterally, Breath Sounds Equal Cardiology CV Exam: Regular, Normal Sinus Rhythm Gastrointestinal/Abdomen GI Exam: Soft, Non-Tender, Bowel Sounds Present Extremeties Extremities Exam: No Edema Assessment/Plan Problem List: (1) Acute renal failure ICD Codes: N17.9 - Acute kidney failure, unspecified Plan: He states he has been keeping nurse down any more nausea or vomiting Creatinine is slightly up 2.4 Hemoglobin down monitor may need blood transfusion Avoid nephrotoxin Avoid dye studies On Flomax 0.4 mg q hs urination has improved has BPH Follow BMP Kidney ultrasound showed tiny stones no obstruction discussed with patient (2) Hip fracture ICD Codes: S72.009A - Fracture of unspecified part of neck of unspecified femur , initial encounter for closed fracture Plan: Status post surgery (3) CKD (chronic kidney disease) stage 3, GFR 30-59 ml/min ICD Codes: N18.3 - Chronic kidney disease, stage 3 (moderate) Plan: Did have elevated creatinine Kerline Aguilera MD Aug 25, 2017 16:17
[2017-08-25 17:05] LABS: HEMATOCRIT 23.9 % (39.0-51.0); HEMOGLOBIN 7.9 GM/DL (13.0-17.0)
[2017-08-25] MEDS: TAMSULOSIN HCL 0.4 MG CAP PO SCH (17:47)
[2017-08-25 19:50] VITALS: BP 156/70; PULSE 67; RESP 18; TEMP 96.9; O2SAT 96
[2017-08-25] MEDS: MAGNESIUM HYDROXIDE SUSP 30 ML CUP PO PRN (21:51)
[2017-08-25 23:14] VITALS: BP 157/72; PULSE 86; RESP 18; TEMP 97.9; O2SAT 97
[2017-08-26] VITALS (7 sets, daily range): BP systolic 122–156; BP diastolic 67–74; PULSE 64–87; RESP 16–18; TEMP 96.5–98.9; O2SAT 95–100
[2017-08-26 05:31] LABS: AUTOMATED NEUTROPHIL # 4.8 TH/MM3 (1.8-7.7); BASOPHIL % 0.3 % (0.0-2.0); EOSINOPHIL # 0.2 TH/MM3 (0-0.4); EOSINOPHIL % 2.5 % (0.0-4.0); HEMATOCRIT 22.5 % (39.0-51.0); HEMOGLOBIN 7.4 GM/DL (13.0-17.0); LYMPH % 10.8 % (9.0-44.0); LYMPHOCYTE # 0.7 TH/MM3 (1.0-4.8); MEAN CELL VOLUME 89.2 FL (80.0-100.0); MEAN CORPUSCULAR HEMOGLOBIN 29.5 PG (27.0-34.0); MEAN PLATELET VOLUME 8.5 FL (7.0-11.0); MONO % 11.9 % (0.0-8.0); MONOCYTE # 0.8 TH/MM3 (0-0.9); NEUT % 74.5 % (16.0-70.0); PLATELET COUNT 213 TH/MM3 (150-450); RED BLOOD COUNT 2.52 MIL/MM3 (4.50-5.90); RED CELL DISTRIBUTION WIDTH 18.2 % (11.6-17.2); WHITE BLOOD COUNT 6.4 TH/MM3 (4.0-11.0)
[2017-08-26 05:49] LABS: BICARBONATE 26.7 MEQ/L (21.0-32.0); CALCIUM 8.4 MG/DL (8.5-10.1); CREATININE 2.45 MG/DL (0.60-1.30)
--- NOTE | 2017-08-26 06:36 | PD.ORT.PN ---
Subjective Subjective Remarks POD 3 s/p Right hip hemiarthroplasty doing well. pain controlled. out of bed with assistance. Objective Vitals Vital Signs Date Time Temp Pulse Resp B/P (MAP) Pulse Ox O2 Delivery O2 Flow Rate FiO2 08/25/17 23:14 97.9 86 18 157/72 (100) 97 08/25/17 19:50 96.9 67 18 156/70 (98) 96 08/25/17 16:00 97.0 82 18 146/67 (93) 99 08/25/17 12:00 96.2 95 18 150/66 (94) 97 08/25/17 08:00 96.5 87 17 163/68 (99) 96 I/O 08/25/17 08/25/17 08/25/17 08/26/17 08/26/17 08/26/17 07:00 15:00 23:00 07:00 15:00 23:00 Intake Total 480 ml 600 ml 360 ml 360 ml Output Total 370 ml 725 ml 450 ml Balance 110 ml -125 ml 360 ml -90 ml Intake Oral 480 ml 600 ml 360 ml 360 ml Output Urine Total 350 ml 725 ml 450 ml Drainage Total 20 ml # Voids 2 # Bowel Movements 0 0 0 0 Result Diagram: 08/26/17 0441 08/26/17 0441 Imaging Last 24 hours Impressions Hip and Pelvis X-Ray 08/23/17926 Signed Impressions: Service Date/Time: Wednesday, August 23, 2017 09:56 - CONCLUSION: Intertrochanteric fracture right hip. Maurice Mendez MD FACR Chest X-Ray 08/23/17926 Signed Impressions: Service Date/Time: Wednesday, August 23, 2017 09:56 - CONCLUSION: 1. Cardiomegaly. No acute pulmonary disease. Benji Henley MD Lower Extremity CT 08/23/17 0000 Signed Impressions: Service Date/Time: Wednesday, August 23, 2017 12:03 - CONCLUSION: Basi cervical fracture fracture right hip. Femoral head aligned with the acetabulum. Maurice Mendez MD FACR Objective Remarks Right lower extremity: Clean dry dressings intact with drain in place. Knee immobilizer in position. Mild swelling of hip Assessment & Plan Assessment and Plan Right hip hemiarthroplasty POD 3 Weightbearing as tolerated twice a day with physical therapy dressing change Lovenox Rehabilitation planning Ortho clear for rehabilitation Follow-up Dr. Dia or PA in 2 weeks Incentive spirometry Anil Lynch/[employer] PA Aug 26, 2017 06:36
--- NOTE | 2017-08-26 08:07 | HHI.PR ---
Subjective Remarks Follow up anemia, renal failure. Patient has no complaints at this time. Denies chest pain, dyspnea. Pain is well controlled. Denies dizziness/lightheadedness. Objective Vitals Vital Signs Date Time Temp Pulse Resp B/P (MAP) Pulse Ox O2 Delivery O2 Flow Rate FiO2 08/26/17 07:25 Room Air 08/25/17 23:14 97.9 86 18 157/72 (100) 97 08/25/17 19:50 96.9 67 18 156/70 (98) 96 08/25/17 16:00 97.0 82 18 146/67 (93) 99 08/25/17 12:00 96.2 95 18 150/66 (94) 97 I/O 08/25/17 08/25/17 08/25/17 08/26/17 08/26/17 08/26/17 07:00 15:00 23:00 07:00 15:00 23:00 Intake Total 480 ml 600 ml 360 ml 360 ml Output Total 370 ml 725 ml 450 ml Balance 110 ml -125 ml 360 ml -90 ml Intake Oral 480 ml 600 ml 360 ml 360 ml Output Urine Total 350 ml 725 ml 450 ml Drainage Total 20 ml # Voids 2 # Bowel Movements 0 0 0 0 Result Diagram: 08/26/17 0441 08/26/17 0441 Imaging Last Impressions Renal Ultrasound 08/24/17 0000 Signed Impressions: Service Date/Time: Thursday, August 24, 2017 17:14 - CONCLUSION: 1. Parenchymal renal disease with increased echogenicity. 2. No evidence of hydronephrosis. 3. Bilateral nephrolithiasis. 4. Right renal cyst. 5. Prostatomegaly. Antonio Fischer MD Hip and Pelvis X-Ray 08/23/17 1346 Signed Impressions: Service Date/Time: Wednesday, August 23, 2017 15:35 - CONCLUSION: Postsurgical changes as above. Benji Henley MD Chest X-Ray 08/23/17 0927 Signed Impressions: Service Date/Time: Wednesday, August 23, 2017 09:56 - CONCLUSION: 1. Cardiomegaly. No acute pulmonary disease. Benji Henley MD Lower Extremity CT 08/23/17 0000 Signed Impressions: Service Date/Time: Wednesday, August 23, 2017 12:03 - CONCLUSION: Basi cervical fracture fracture right hip. Femoral head aligned with the acetabulum. Maurice Mendez MD FACR Objective Remarks General: Elderly male in no acute distress. Hard of hearing. Heart: Regular rate and rhythm. No murmur. Lungs: Clear to auscultation bilaterally. No wheezes, rales, or rhonchi. Breathing is nonlabored. Abdomen: Soft, nontender, nondistended. Extremities: No lower extremity edema. SCDs. Psych: Alert and oriented. Procedures 08/23/17 right hip hemiarthroplasty Urinary Catheter: No Vascular Central Line Catheter: No A/P Assessment and Plan 1. Right femoral neck fracture: Status post mechanical fall. Status post right hip hemiarthroplasty on 08/23/17. Management per orthopedic surgery. Continue pain control, bowel regimen. 2. Hypertension: BP elevated. Continue amlodipine. Add atenolol. 3. Acute kidney injury: Uncertain if there is a component of chronic kidney disease. Patient had normal creatinine until March 2017. Creatinine has been trending up over the past few months. Appreciate nephrology recommendations. Renal ultrasound report noted. Avoid nephrotoxins. Continue IV fluids. 4. Anemia: Postoperative anemia secondary to blood loss. Recheck H/H this afternoon. May need transfusion. 5. DVT prophylaxis: Lovenox per orthopedic surgery. Switch to Xarelto at discharge. Discharge Planning Discharge to SNF when cleared by nephrology and pending H/H this afternoon. Dick Pearson MD Aug 26, 2017 08:07
[2017-08-26] MEDS ORDERED: PILL SPLITTER OTHER PRN (08:30)
[2017-08-26] MEDS: ATENOLOL 25 MG TAB PO SCH (10:14)
[2017-08-26] MEDS: CHOLECALCIFEROL (VIT D3) 5000 UNIT CAP PO SCH (10:14)
[2017-08-26] MEDS: ACETAMINOPHEN/HYDROcodone 325 MG/10 MG TAB PO PRN ×2 (10:14→15:24)
[2017-08-26] MEDS: DOCUSATE SODIUM 50 MG/SENNA 8.6 MG TAB PO SCH ×2 (10:15→19:29)
[2017-08-26] MEDS: MAGNESIUM HYDROXIDE SUSP 30 ML CUP PO PRN (10:15)
[2017-08-26] MEDS: ENOXAPARIN SODIUM 30 MG/0.3 ML SYRINGE SQ SCH (13:45)
[2017-08-26] MEDS: SODIUM CHLOR 0.9% 1000 ML INJ 1,000 ML IV SCH ×2 (14:09→16:19)
--- NOTE | 2017-08-26 14:35 | HHI.NPPN ---
Subjective History of Present Illness 81-year-old with hip fracture status post surgery with acute renal failure Review of Systems General Constitutional: Fatigue Objective Data Data Vital Signs Date Time Temp Pulse Resp B/P (MAP) Pulse Ox O2 Delivery O2 Flow Rate FiO2 08/26/17 12:00 96.5 85 17 122/71 (88) 98 08/26/17 10:08 97 08/26/17 08:00 97.1 87 16 136/70 (92) 97 08/26/17 07:25 Room Air 08/25/17 23:14 97.9 86 18 157/72 (100) 97 08/25/17 19:50 96.9 67 18 156/70 (98) 96 08/25/17 16:00 97.0 82 18 146/67 (93) 99 -: 08/26/17 0441 08/26/17 0441 Physical Exam General Appearance: Well Developed Neck Neck Exam: Neck Supple Pulmonary Resp Exam: Clear Bilaterally, Breath Sounds Equal Cardiology CV Exam: Regular, Normal Sinus Rhythm Gastrointestinal/Abdomen GI Exam: Soft, Non-Tender, Bowel Sounds Present Extremeties Extremities Exam: No Edema Assessment/Plan Problem List: (1) Acute renal failure ICD Codes: N17.9 - Acute kidney failure, unspecified Plan: He has surgery and I will start him on IV fluid normal saline and follow BMP Avoid nephrotoxin cr slow to decline 2.4 Avoid dye studies add Flomax 0.4 mg q hs Follow BMP Obtain baseline ultrasound of the kidneys (2) Hip fracture ICD Codes: S72.009A - Fracture of unspecified part of neck of unspecified femur , initial encounter for closed fracture Plan: Status post surgery (3) CKD (chronic kidney disease) stage 3, GFR 30-59 ml/min ICD Codes: N18.3 - Chronic kidney disease, stage 3 (moderate) Plan: Did have elevated creatinine Kerline Aguilera MD Aug 26, 2017 14:35
[2017-08-26] MEDS: SODIUM CHLORIDE 0.9% FLUSH 10 ML FLUSH IV FLUSH SCH ×2 (16:19→19:29)
[2017-08-26] MEDS: TAMSULOSIN HCL 0.4 MG CAP PO SCH (16:21)
[2017-08-26 18:14] LABS: HEMATOCRIT 23.9 % (39.0-51.0)
[2017-08-27 03:27] VITALS: BP 148/68; PULSE 78; RESP 18; TEMP 98.9; O2SAT 99
[2017-08-27] MEDS: SODIUM CHLOR 0.9% 1000 ML INJ 1,000 ML IV SCH ×2 (03:29→16:49)
[2017-08-27] MEDS: ACETAMINOPHEN/HYDROcodone 325 MG/10 MG TAB PO PRN ×4 (03:57→17:31)
[2017-08-27 06:26] LABS: AUTOMATED NEUTROPHIL # 5.3 TH/MM3 (1.8-7.7); BASOPHIL % 0.3 % (0.0-2.0); EOSINOPHIL # 0.2 TH/MM3 (0-0.4); EOSINOPHIL % 2.8 % (0.0-4.0); HEMATOCRIT 22.6 % (39.0-51.0); HEMOGLOBIN 7.6 GM/DL (13.0-17.0); LYMPH % 9.5 % (9.0-44.0); LYMPHOCYTE # 0.7 TH/MM3 (1.0-4.8); MEAN CELL VOLUME 89.5 FL (80.0-100.0); MEAN CORPUSCULAR HGB CONC 33.5 % (32.0-36.0); MEAN PLATELET VOLUME 8.8 FL (7.0-11.0); MONO % 11.2 % (0.0-8.0); MONOCYTE # 0.8 TH/MM3 (0-0.9); NEUT % 76.2 % (16.0-70.0); PLATELET COUNT 251 TH/MM3 (150-450); RED BLOOD COUNT 2.52 MIL/MM3 (4.50-5.90); RED CELL DISTRIBUTION WIDTH 17.6 % (11.6-17.2); WHITE BLOOD COUNT 6.9 TH/MM3 (4.0-11.0)
[2017-08-27 06:27] VITALS: BP 143/68; PULSE 78; RESP 18; TEMP 98.9; O2SAT 99
--- NOTE | 2017-08-27 06:53 | PD.ORT.PN ---
Subjective Subjective Remarks Resting comfortably with no new complaints Objective Vitals Vital Signs Date Time Temp Pulse Resp B/P (MAP) Pulse Ox O2 Delivery O2 Flow Rate FiO2 08/27/17 06:27 98.9 78 18 143/68 (93) 99 08/26/17 23:45 97.1 76 18 155/74 (101) 96 08/26/17 19:34 Room Air 08/26/17 19:17 97.6 86 18 156/69 (98) 95 08/26/17 16:00 98.9 74 17 136/67 (90) 100 08/26/17 15:11 Nasal Cannula 2.00 08/26/17 14:50 64 149/67 (94) 100 08/26/17 12:00 96.5 85 17 122/71 (88) 98 08/26/17 10:08 97 08/26/17 08:00 97.1 87 16 136/70 (92) 97 08/26/17 07:25 Room Air I/O 08/26/17 08/26/17 08/26/17 08/27/17 08/27/17 08/27/17 07:00 15:00 23:00 07:00 15:00 23:00 Intake Total 360 ml 720 ml 360 ml 480 ml Output Total 450 ml 380 ml Balance -90 ml 720 ml 360 ml 100 ml Intake Oral 360 ml 720 ml 360 ml 480 ml Output Urine Total 450 ml 380 ml # Voids 3 3 2 # Bowel Movements 0 0 0 1 Result Diagram: 08/27/17 0520 08/26/17 0441 Imaging Last 24 hours Impressions Hip and Pelvis X-Ray 08/23/17926 Signed Impressions: Service Date/Time: Wednesday, August 23, 2017 09:56 - CONCLUSION: Intertrochanteric fracture right hip. Maurice Mendez MD FACR Chest X-Ray 08/23/17926 Signed Impressions: Service Date/Time: Wednesday, August 23, 2017 09:56 - CONCLUSION: 1. Cardiomegaly. No acute pulmonary disease. Benji Henley MD Lower Extremity CT 08/23/17 0000 Signed Impressions: Service Date/Time: Wednesday, August 23, 2017 12:03 - CONCLUSION: Basi cervical fracture fracture right hip. Femoral head aligned with the acetabulum. Maurice Mendez MD FACR Objective Remarks Right lower extremity: Clean dry dressings intact with drain in place. Knee immobilizer in position. Mild swelling of hip Assessment & Plan Assessment and Plan Right hip hemiarthroplasty POD 4 Weightbearing as tolerated twice a day with physical therapy dressing change Lovenox Rehabilitation planning Ortho clear for rehabilitation Follow-up Dr. Dia or [place] in 2 weeks Incentive spirometry Jez Dowling Jr. Aug 27, 2017 06:53
[2017-08-27 06:54] LABS: BICARBONATE 27.6 MEQ/L (21.0-32.0); CALCIUM 8.4 MG/DL (8.5-10.1); CREATININE 2.09 MG/DL (0.60-1.30)
[2017-08-27 08:00] VITALS: BP 152/75; PULSE 78; RESP 17; TEMP 96.1; O2SAT 100
[2017-08-27] MEDS: SODIUM CHLORIDE 0.9% FLUSH 10 ML FLUSH IV FLUSH SCH (09:05)
[2017-08-27] MEDS: CHOLECALCIFEROL (VIT D3) 5000 UNIT CAP PO SCH (09:05)
[2017-08-27] MEDS: DOCUSATE SODIUM 50 MG/SENNA 8.6 MG TAB PO SCH (09:05)
[2017-08-27] MEDS: ATENOLOL 25 MG TAB PO SCH (09:05)
[2017-08-27 12:00] VITALS: BP 113/64; PULSE 95; RESP 17; TEMP 97.9; O2SAT 90
[2017-08-27] MEDS: ENOXAPARIN SODIUM 30 MG/0.3 ML SYRINGE SQ SCH (14:27)
[2017-08-27 14:37] VITALS: BP 140/62; PULSE 72; O2SAT 98
--- NOTE | 2017-08-27 14:55 | HHI.DCPOC ---
Discharge Care Plan Diagnosis: (1) CKD (chronic kidney disease) stage 3, GFR 30-59 ml/min (2) Acute renal failure (3) Fracture of femoral neck, right Goals to Promote Your Health * To prevent worsening of your condition and complications * To maintain your health at the optimal level Directions to Meet Your Goals Take your medications as prescribed Follow your dietary instruction Follow activity as directed Keep your appointments as scheduled Take your immunizations and boosters as scheduled If your symptoms worsen call your PCP, if no PCP go to Urgent Care Center or Emergency Room Smoking is Dangerous to Your Health. Avoid second hand smoke Call the 24-hour hour crisis hotline for domestic abuse at Dick Pearson MD Aug 27, 2017 14:55
[2017-08-27] MEDS ORDERED: AMLO10 PO (14:56)
--- NOTE | 2017-08-27 14:59 | HHI.DS ---
Discharge Summary Admission Date Aug 23, 2017 at 11:25 Discharge Date: Aug 27, 2017 Admitting Diagnosis fracture right femur. Chronic renal disease. (1) Fracture of femoral neck, right ICD Code: S72.001A - Fracture of unspecified part of neck of right femur, initial encounter for closed fracture Status: Acute (2) CKD (chronic kidney disease) stage 3, GFR 30-59 ml/min ICD Code: N18.3 - Chronic kidney disease, stage 3 (moderate) (3) Acute renal failure ICD Code: N17.9 - Acute kidney failure, unspecified Procedures 08/23/17 right hip hemiarthroplasty Brief History - From Admission The patient is a 81-year-old male with a past medical history of hypertension, TIA who came to the emergency room for further evaluation after mechanical fall at home. Patient denies any syncope. Denies any chest pain, shortness of breath, nausea , vomiting, diarrhea or constipation. Pain is fairly controlled by medications. He is found with right hip fracture, went to the OR by Dr. Dia today. CBC/BMP: 08/27/17 0520 08/27/17 0520 Significant Findings Laboratory Tests Test 08/25/17 08:52 08/25/17 15:35 08/26/17 04:41 08/26/17 16:47 Red Blood Count 2.65 MIL/MM3 (4.50-5.90) 2.52 MIL/MM3 (4.50-5.90) Hemoglobin 7.9 GM/DL (13.0-17.0) 7.9 GM/DL (13.0-17.0) 7.4 GM/DL (13.0-17.0) 8.0 GM/DL (13.0-17.0) Hematocrit 23.8 % (39.0-51.0) 23.9 % (39.0-51.0) 22.5 % (39.0-51.0) 23.9 % (39.0-51.0) Red Cell Distribution Width 18.3 % (11.6-17.2) 18.2 % (11.6-17.2) Neutrophils (%) (Auto) 80.2 % (16.0-70.0) 74.5 % (16.0-70.0) Lymphocytes (%) (Auto) 6.7 % (9.0-44.0) Monocytes (%) (Auto) 12.1 % (0.0-8.0) 11.9 % (0.0-8.0) Lymphocytes # (Auto) 0.6 TH/MM3 (1.0-4.8) 0.7 TH/MM3 (1.0-4.8) Monocytes # (Auto) 1.0 TH/MM3 (0-0.9) Blood Urea Nitrogen 50 MG/DL (7-18) 47 MG/DL (7-18) Creatinine 2.49 MG/DL (0.60-1.30) 2.45 MG/DL (0.60-1.30) Calcium Level 8.0 MG/DL (8.5-10.1) 8.4 MG/DL (8.5-10.1) Chloride Level 108 MEQ/L (98-107) Estimat Glomerular Filtration Rate 25 ML/MIN (>89) 25 ML/MIN (>89) Test 08/27/17 05:20 Red Blood Count 2.52 MIL/MM3 (4.50-5.90) Hemoglobin 7.6 GM/DL (13.0-17.0) Hematocrit 22.6 % (39.0-51.0) Red Cell Distribution Width 17.6 % (11.6-17.2) Neutrophils (%) (Auto) 76.2 % (16.0-70.0) Monocytes (%) (Auto) 11.2 % (0.0-8.0) Lymphocytes # (Auto) 0.7 TH/MM3 (1.0-4.8) Blood Urea Nitrogen 42 MG/DL (7-18) Creatinine 2.09 MG/DL (0.60-1.30) Random Glucose 112 MG/DL (74-106) Calcium Level 8.4 MG/DL (8.5-10.1) Estimat Glomerular Filtration Rate 30 ML/MIN (>89) PE at Discharge General: Elderly male in no acute distress. Hard of hearing. Heart: Regular rate and rhythm. No murmur. Lungs: Clear to auscultation bilaterally. No wheezes, rales, or rhonchi. Breathing is nonlabored. Abdomen: Soft, nontender, nondistended. Extremities: No lower extremity edema. SCDs. Psych: Alert and oriented. Pt update on day of discharge The patient states that he feels better today. He feels that he is ready to get out of the hospital. He has had a couple episodes of dizziness associated with getting out of bed. Denies chest pain or dyspnea. No syncopal episodes. Hospital Course The patient was admitted for management of displaced right femoral neck fracture. Orthopedic surgery was consulted. Patient had right hip hemiarthroplasty on 08/23/17. Routine postoperative care was continued. Patient developed postoperative anemia, however there was no active bleeding and hemoglobin and hematocrit stabilized. He had hypertension and his antihypertensive medications were adjusted. Nephrology was consulted regarding acute kidney injury superimposed on chronic kidney disease. Patient's creatinine stabilized and improved slightly. He developed episodes of dizziness after he was started on atenolol. The atenolol was discontinued. Patient's symptoms improved and he felt that he was ready to be discharged. Arrangements were made for discharge to custodial facility for rehabilitation. Pt Condition on Discharge: Stable Discharge Disposition: Discharge to SNF Discharge Time: > 30 minutes Discharge Instructions DIET: Follow Instructions for: Diabetic Diet Activities you can perform: See Additionl Instruction Other Activity Instructions: With assistance Follow up Referrals: Orthopedics - 2 Weeks @ [facility] with Tate Dia MD New Medications: Calcium Carbonate-Vitamin D (Calcium 600+D 200) 600-200 Mg-Unit Tab 1 TAB PO BID for Nutritional Supplement, #90 TAB 0 Refills Ergocalciferol (Ergocalciferol) 50,000 Unit Cap 65316 UNITS PO Q7D for Nutritional Supplement, #8 CAP Hydrocodone-Acetaminophen (Hydrocodone-Acetaminophen) 7.5 Mg-325 Mg Tab 1 TAB PO Q4H PRN for PAIN, #60 TAB 0 Refills Rivaroxaban (Xarelto) 10 Mg Tab 10 MG PO DAILY for Blood Clot Prevention, #14 TAB 0 Refills Walker/Adult/Folding (Walker/Adult/Folding) 1 Mis Mis EA .ROUTE DIRECTED, #1 0 Refills Amlodipine (Norvasc) 10 Mg Tab 10 MG PO DAILY for Blood Pressure Management, #30 TAB 0 Refills Continued Medications: Loratadine (Claritin) 10 Mg Cap 10 MG PO DAILY for Allergy Management, CAP 0 Refills Discontinued Medications: Amlodipine (Amlodipine) 5 Mg Tab 5 MG PO DAILY for Blood Pressure Management, #1 TAB 0 Refills Naproxen Sodium (Aleve Arthritis) 220 Mg Tab 220 MG PO BID, TAB Dick Pearson MD Aug 27, 2017 14:59
[2017-08-27 16:00] VITALS: BP 147/92; PULSE 79; RESP 17; TEMP 96.7; O2SAT 98
[2017-08-27] MEDS: TAMSULOSIN HCL 0.4 MG CAP PO SCH (17:30)
== END 2017-08-27 19:32 | DRG 470 ==
LOC: NEPE 08:14 → NEDA 11:25 → N06A 18:53
PROVIDERS: ADMIT Family Medicine; ATTEND Family Medicine
PROC: 0SRR01A Replacement of Right Hip Joint, Femoral Surface with Metal Synthetic Substitute, Uncemented, Open Approach (ICD-10-PCS; principal; 2017-08-23 13:32)
DX: S72.141A Displaced intertrochanteric fracture of right femur, initial encounter for closed fracture (principal); N17.9 Acute kidney failure, unspecified; D62 Acute posthemorrhagic anemia; R31.21 Asymptomatic microscopic hematuria; N18.3 Chronic kidney disease, stage 3 (moderate); I12.9 Hypertensive chronic kidney disease with stage 1 through stage 4 chronic kidney disease, or unspecified chronic kidney disease; H91.90 Unspecified hearing loss, unspecified ear; M19.90 Unspecified osteoarthritis, unspecified site; E78.00 Pure hypercholesterolemia, unspecified; W18.30XA Fall on same level, unspecified, initial encounter; N40.0 Benign prostatic hyperplasia without lower urinary tract symptoms; R42 Dizziness and giddiness; Y92.009 Unspecified place in unspecified non-institutional (private) residence as the place of occurrence of the external cause; Z87.891 Personal history of nicotine dependence; Z79.82 Long term (current) use of aspirin; Z86.73 Personal history of transient ischemic attack (TIA), and cerebral infarction without residual deficits
CPT/HCPCS: 71045; 73502; 73700; 76775; 80048; 80053; 81001; 82306; 82550; 82948; 84443; 85014; 85018; 85025; 85610; 85730; 93005; 96361; 96374; 96375; C1776; J0360; J0690; J1580; J1650; J2175; J2270; J2370; J2405; J3370; J7030; J7050; J7120; L1830

== ENCOUNTER 2017-08-28 11:07 | Emergency (ER) | payer MEDICARE, OTHER ==
[~2017-08-28] VITALS: Ht 172.7 cm; Wt 67.0 kg
[2017-08-28 11:07] VITALS: BP 124/60; PULSE 74; RESP 18; TEMP 97.9; O2SAT 97
[~2017-08-28 11:07] MED LIST changes: -ALEV220T14 PO; +AMLO10 PO; +CALCTAB19 PO; +HYDR-3580 PO; +VITA500012 PO; +WALKER/ADULT/FO1 MIS; +XARE10TA PO
[2017-08-28] MEDS ORDERED: SODIUM CHLOR 0.9% 1000 ML INJ 1,000 ML IV ONE (11:23)
--- NOTE | 2017-08-28 11:29 | PD ---
HPI Chief Complaint: lethargic Time Seen by Provider: 11:16 Travel History International Travel<30 days: No Contact w/Intl Traveler<30days: No Traveled to known affect area: No History of Present Illness HPI This patient was brought in by [facility]edics [facility] when he was found to be lethargic with decreased responsiveness and blood pressure in the 80s systolic. He was diaphoretic. He felt lightheaded. Upon arrival however he has a heart rate in the 80s and blood pressure 124 systolic. He feels much better. Did not receive any sedating medication this morning. Did not have any chest pain or headache and denies any neurologic complaint. He had a recent right hip surgery repair. Denies shortness of breath. Symptoms severity was moderate but at this time he is asymptomatic. There were no alleviating factors. No obvious exacerbating factors. Duration was about 20 minutes PFSH Past Medical History Hx Anticoagulant Therapy: Yes (aspirin ) Arthritis: Yes Cancer: No Cardiovascular Problems: Yes High Cholesterol: Yes Cerebrovascular Accident: Yes (TIA 2 yrs ago) Diminished Hearing: Yes (HEARING PROBLEMS) Endocrine: No Genitourinary: No Hypertension: Yes Immune Disorder: No Implanted Vascular Access Dvce: No Musculoskeletal: Yes Neurologic: No Psychiatric: No Reproductive: No Respiratory: Yes Past Surgical History Abdominal Surgery: Yes (hernia repair ) Appendectomy: Yes Other Surgery: Yes Social History Alcohol Use: No Tobacco Use: No (QUIT 40 YEARS AGO) Substance Use: No Allergies-Medications (Allergen,Severity, Reaction): Coded Allergies: No Known Allergies (Verified Adverse Reaction, Unknown, 08/28/17) Reported Meds & Prescriptions Reported Meds & Active Scripts Active Norvasc (Amlodipine Besylate) 10 Mg Tab 10 Mg PO DAILY Calcium 600+D 200 (Calcium Carbonate-Vitamin D) 600-200 Mg-Unit Tab 1 Tab PO BID Ergocalciferol 50,000 Unit Cap 50,000 Units PO Q7D Xarelto (Rivaroxaban) 10 Mg Tab 10 Mg PO DAILY Hydrocodone-Acetaminophen 7.5 Mg-325 Mg Tab 1 Tab PO Q4H PRN Reported Claritin (Loratadine) 10 Mg Cap 10 Mg PO DAILY Review of Systems General / Constitutional: No: Fever Eyes: No: Visual changes HENT: Positive: Lightheadedness, No: Headaches Cardiovascular: Positive: Diaphoresis, No: Chest Pain or Discomfort Respiratory: No: Shortness of Breath Gastrointestinal: Positive: Nausea, No: Abdominal Pain Genitourinary: No: Dysuria Musculoskeletal: No: Pain Skin: No Rash Neurologic: Positive: Change in Mentation, No: Weakness Psychiatric: No: Depression Endocrine: No: Polydipsia Hematologic/Lymphatic: No: Easy Bruising Physical Exam Narrative GENERAL: Well-nourished, well-developed patient in no apparent distress. SKIN: Focused skin assessment reveals no rash and nodules. Skin is Warm and dry. HEAD: Atraumatic. Normocephalic. EYES: Pupils equal and round. No scleral icterus. No injection or drainage. ENT: No nasal bleeding or discharge. Mucous membranes pink and moist. NECK: Trachea midline. No JVD. CARDIOVASCULAR: Regular rate and rhythm. No murmur appreciated. RESPIRATORY: No accessory muscle use. Clear to auscultation. Breath sounds equal bilaterally. GASTROINTESTINAL: Abdomen soft, non-tender, nondistended. Hepatic and splenic margins not palpable. MUSCULOSKELETAL: No obvious deformities. No clubbing. No cyanosis. No edema. Has right knee immobilizer in place NEUROLOGICAL: Awake and alert. No obvious cranial nerve deficits. Motor grossly within normal limits. Normal speech. PSYCHIATRIC: Appropriate mood and affect; insight and judgment normal. Data Data Last Documented VS Vital Signs Date Time Temp Pulse Resp B/P (MAP) Pulse Ox O2 Delivery O2 Flow Rate FiO2 08/28/17 11:44 73 18 133/62 (85) 95 Room Air 08/28/17 11:07 97.9 Orders Orders Electrocardiogram (08/28/17 11:23) Basic Metabolic Panel (Bmp) (08/28/17 11:23) Complete Blood Count With Diff (08/28/17 11:23) Ecg Monitoring (08/28/17 11:23) Iv Access Insert/Monitor (08/28/17 11:23) Oximetry (08/28/17 11:23) Sodium Chloride 0.9% Flush (Ns Flush) (08/28/17 11:30) Sodium Chlor 0.9% 1000 Ml Inj (Ns 1000 M (08/28/17 11:23) Labs Laboratory Tests Test 08/28/17 11:25 08/28/17 12:10 White Blood Count 7.6 TH/MM3 Red Blood Count 3.00 MIL/MM3 Hemoglobin 8.2 GM/DL Hematocrit 26.6 % Mean Corpuscular Volume 88.7 FL Mean Corpuscular Hemoglobin 27.5 PG Mean Corpuscular Hemoglobin Concent 31.0 % Red Cell Distribution Width 16.8 % Platelet Count 332 TH/MM3 Mean Platelet Volume 8.8 FL Neutrophils (%) (Auto) 85.1 % Lymphocytes (%) (Auto) 6.3 % Monocytes (%) (Auto) 6.2 % Eosinophils (%) (Auto) 2.0 % Basophils (%) (Auto) 0.4 % Neutrophils # (Auto) 6.4 TH/MM3 Lymphocytes # (Auto) 0.5 TH/MM3 Monocytes # (Auto) 0.5 TH/MM3 Eosinophils # (Auto) 0.2 TH/MM3 Basophils # (Auto) 0.0 TH/MM3 CBC Comment DIFF FINAL Differential Comment Blood Urea Nitrogen 43 MG/DL Creatinine 2.20 MG/DL Random Glucose 170 MG/DL Calcium Level 8.4 MG/DL Sodium Level 141 MEQ/L Potassium Level 4.5 MEQ/L Chloride Level 105 MEQ/L Carbon Dioxide Level 28.7 MEQ/L Anion Gap 7 MEQ/L Estimat Glomerular Filtration Rate 29 ML/MIN [facility] Medical Decision Making Medical Screen Exam Complete: Yes Emergency Medical Condition: Yes Medical Record Reviewed: Yes Differential Diagnosis Vasovagal episode, cardiac arrhythmia, overmedication, symptomatically anemia Narrative Course I have reviewed the patient's electronic medical record. Reviewed his history and physical and discharge summary which was from yesterday. He had significant postoperative anemia and yesterday's hemoglobin was 7.6. He denies bleeding IV placed CBC shows improvement in his known anemia Metabolic profile slight improvement in his known renal insufficiency I reviewed his EKG which shows sinus rhythm without ST elevation or significant ectopy Extended cardiac monitoring reveals sinus rhythm without ectopy I gave him 1 L normal saline IV Patient is neurologically intact and mental status seems normal Patient has remained asymptomatic throughout his stay. He may have had a vasovagal episode. In any event he is feeling fine and stable for outpatient follow-up. [facility] will be [facility]. Diagnosis Primary Impression: Lethargy Additional Impression: Hypotensive episode Additional Instructions: The patient was advised to follow up with their physician and return if they worsen. Med/Other Pt SpecificInfo: Other Disposition: 03 DISCHARGE TO SNF Condition: Stable Dick Sam MD Aug 28, 2017 11:29
[2017-08-28] MEDS ORDERED: SODIUM CHLORIDE 0.9% FLUSH 10 ML FLUSH IVF PRN (11:30)
[2017-08-28 11:44] VITALS: BP 133/62; PULSE 73; RESP 18; O2SAT 95
[2017-08-28 11:45] LABS: AUTOMATED NEUTROPHIL # 6.4 TH/MM3 (1.8-7.7); BASOPHIL % 0.4 % (0.0-2.0); EOSINOPHIL # 0.2 TH/MM3 (0-0.4); HEMATOCRIT 26.6 % (39.0-51.0); HEMOGLOBIN 8.2 GM/DL (13.0-17.0); LYMPH % 6.3 % (9.0-44.0); LYMPHOCYTE # 0.5 TH/MM3 (1.0-4.8); MEAN CELL VOLUME 88.7 FL (80.0-100.0); MEAN CORPUSCULAR HEMOGLOBIN 27.5 PG (27.0-34.0); MEAN PLATELET VOLUME 8.8 FL (7.0-11.0); MONO % 6.2 % (0.0-8.0); MONOCYTE # 0.5 TH/MM3 (0-0.9); NEUT % 85.1 % (16.0-70.0); PLATELET COUNT 332 TH/MM3 (150-450); RED CELL DISTRIBUTION WIDTH 16.8 % (11.6-17.2); WHITE BLOOD COUNT 7.6 TH/MM3 (4.0-11.0)
[2017-08-28 12:25] LABS: CALCIUM 8.4 MG/DL (8.5-10.1)
[2017-08-28 12:26] LABS: BICARBONATE 28.7 MEQ/L (21.0-32.0)
[2017-08-28 12:30] LABS: CREATININE 2.2 MG/DL (0.60-1.30)
[2017-08-28 14:04] VITALS: BP 120/58; PULSE 75; RESP 20; O2SAT 96
--- NOTE | 2017-08-28 20:48 | EKG ---
Date Performed: 08/28/2017 Time Performed: 11:16:17 PTAGE: 81 years EKG: Sinus rhythm MARKED LEFT AXIS DEVIATION MODERATE T-WAVE ABNORMALITY ABNORMAL ECG PREVIOUS TRACING : 08/23/2017 10.18 Compared to the previous tracing T wave abnormality present DOCTOR: Hina Reyes Interpretating Date/Time 08/28/2017 20:47:03
== END 2017-08-28 14:59 ==
LOC: PHED 11:07
DX: R53.83 Other fatigue (principal); I95.9 Hypotension, unspecified; I10 Essential (primary) hypertension; Z79.01 Long term (current) use of anticoagulants; Z86.73 Personal history of transient ischemic attack (TIA), and cerebral infarction without residual deficits; Z87.891 Personal history of nicotine dependence
CPT/HCPCS: 80048; 85025; 93005; 96360; 99284; J7030

== ENCOUNTER 2017-09-01 09:19 | Inpatient (IN) | payer OTHER, MEDICARE ==
[2017-09-01] VITALS (10 sets, daily range): BP systolic 130–180; BP diastolic 64–83; PULSE 70–94; RESP 17–18; TEMP 97–98; O2SAT 96–99
[~2017-09-01] VITALS: Ht 172.7 cm; Wt 60.1 kg
[~2017-09-01 09:19] MED LIST changes: -WALKER/ADULT/FO1 MIS
[2017-09-01] MEDS ORDERED: SODIUM CHLOR 0.9% 1000 ML INJ 1,000 ML IV ONE (09:24)
[2017-09-01 09:40] LABS: AUTOMATED NEUTROPHIL # 7.9 TH/MM3 (1.8-7.7); BASOPHIL % 0.4 % (0.0-2.0); EOSINOPHIL # 0.3 TH/MM3 (0-0.4); EOSINOPHIL % 3.4 % (0.0-4.0); HEMATOCRIT 24.5 % (39.0-51.0); HEMOGLOBIN 8.3 GM/DL (13.0-17.0); LYMPH % 8.3 % (9.0-44.0); LYMPHOCYTE # 0.8 TH/MM3 (1.0-4.8); MEAN CORPUSCULAR HEMOGLOBIN 30.5 PG (27.0-34.0); MEAN CORPUSCULAR HGB CONC 33.9 % (32.0-36.0); MEAN PLATELET VOLUME 8.1 FL (7.0-11.0); MONO % 9.4 % (0.0-8.0); MONOCYTE # 0.9 TH/MM3 (0-0.9); NEUT % 78.5 % (16.0-70.0); PLATELET COUNT 550 TH/MM3 (150-450); RED BLOOD COUNT 2.72 MIL/MM3 (4.50-5.90); RED CELL DISTRIBUTION WIDTH 16.9 % (11.6-17.2)
--- NOTE | 2017-09-01 09:43 | RADRPT ---
EXAM DATE/TIME: 09/01/2017 09:29 [facility] COMPARISON: CT BRAIN W/O CONTRAST, July 21, 2016, 13:22. INDICATIONS : Left facial droop at rest, stroke alert. RADIATION DOSE: 34.23 CTDIvol (mGy) [place] [id number] at 0937 MEDICAL HISTORY : unobtainable SURGICAL HISTORY : unobtainable ENCOUNTER: Initial ACUITY: 1 day PAIN SCALE: 0/10 LOCATION: Left cranial TECHNIQUE: Multiple contiguous axial images were obtained of the head. Using automated exposure control and adj ustment of the mA and/or kV according to patient size, radiation dose was kept as low as reasonably a chievable to obtain optimal diagnostic quality images. DICOM format image data is available electro nically for review and comparison. FINDINGS: CEREBRUM: The ventricles are normal for age. No evidence of midline shift, mass lesion, hemorrhage or acute in farction. No extra-axial fluid collections are seen. Chronic white matter ischemic change noted. POSTERIOR FOSSA: The cerebellum and brainstem are intact. The 4th ventricle is midline. The cerebellopontine angle i s unremarkable. EXTRACRANIAL: Moderate mucosal thickening of the left maxillary sinus. SKULL: The calvaria is intact. No evidence of skull fracture. CONCLUSION: 1. No acute intracranial findings. 2. Left maxillary sinus mucosal thickening. Bradley Reyes MD on September 01, 2017 at 9:35 Board Certified Radiologist. This report was verified electronically.
[2017-09-01 09:52] LABS: INTERNATIONAL NORMALIZED RATIO 1.1 RATIO; PROTHROMBIN TIME - PATIENT 10.8 SEC (9.8-11.6)
--- NOTE | 2017-09-01 09:57 | PD ---
HPI Chief Complaint: Stroke Alert Time Seen by Provider: 09:24 Travel History International Travel<30 days: No Contact w/Intl Traveler<30days: No History of Present Illness HPI The patient is an 81-year-old male who arrives as stroke alert. 30 minutes prior to ER arrival the patient was found to have a left-sided facial droop leading to the EMS activation and transported here. The onset of left facial droop was believed to be about 30 minutes based on the prior morning rounding performed that his rehabilitation facility where he stays now following right hip surgery. Patient takes Pradaxa antibiotic yesterday. In the ER he has no specific complaint and a left facial droop is observed. Location neurologic. Onset sudden. Timing constant. Severity [id number]. PFSH Past Medical History Hx Anticoagulant Therapy: Yes Arthritis: Yes Cancer: No Cardiovascular Problems: Yes High Cholesterol: Yes Cerebrovascular Accident: Yes Diminished Hearing: Yes (HEARING PROBLEMS) Endocrine: No Genitourinary: No Hypertension: Yes Immune Disorder: No Implanted Vascular Access Dvce: No Musculoskeletal: Yes Neurologic: No Psychiatric: No Reproductive: No Respiratory: Yes Immunizations Current: Yes Past Surgical History Abdominal Surgery: Yes (hernia repair ) Appendectomy: Yes Other Surgery: Yes Social History Alcohol Use: No Tobacco Use: No (QUIT 40 YEARS AGO) Substance Use: No Allergies-Medications (Allergen,Severity, Reaction): Coded Allergies: No Known Allergies (Verified Adverse Reaction, Unknown, 09/01/17) Reported Meds & Prescriptions Reported Meds & Active Scripts Active Norvasc (Amlodipine Besylate) 10 Mg Tab 10 Mg PO DAILY Calcium 600+D 200 (Calcium Carbonate-Vitamin D) 600-200 Mg-Unit Tab 1 Tab PO BID Ergocalciferol 50,000 Unit Cap 50,000 Units PO Q7D Xarelto (Rivaroxaban) 10 Mg Tab 10 Mg PO DAILY Hydrocodone-Acetaminophen 7.5 Mg-325 Mg Tab 1 Tab PO Q4H PRN Reported Claritin (Loratadine) 10 Mg Cap 10 Mg PO DAILY Review of Systems Except as stated in HPI: all other systems reviewed are Neg General / Constitutional: No: Fever Physical Exam Narrative GENERAL: 81 yo M, pleasant, WNWD SKIN: Warm and dry. HEAD: Atraumatic. Normocephalic. EYES: Pupils equal and round. No scleral icterus. No injection or drainage. ENT: No nasal bleeding or discharge. Mucous membranes pink and moist. NECK: Trachea midline. No JVD. CARDIOVASCULAR: Regular rate and rhythm. RESPIRATORY: No accessory muscle use. Clear to auscultation. Breath sounds equal bilaterally. GASTROINTESTINAL: Abdomen soft, non-tender, nondistended. Hepatic and splenic margins not palpable. MUSCULOSKELETAL: Extremities without clubbing, cyanosis, or edema. No obvious deformities. NEUROLOGICAL: L sided facial droop present. Motor function normal bilateral upper extremities and LLE however RLE not testable 2/2 to recent surgery. Speech memory mentation normal. PSYCHIATRIC: Appropriate mood and affect; insight and judgment normal. Data Data Last Documented VS Vital Signs Date Time Temp Pulse Resp B/P (MAP) Pulse Ox O2 Delivery O2 Flow Rate FiO2 09/01/17 09:55 98 Nasal Cannula 2.00 09/01/17 09:46 98.0 81 17 147/72 (97) Orders Orders Diet Npo (09/01/17 Breakfast) Activity Bed Rest (09/01/17 ) Electrocardiogram (09/01/17 ) I-Stat Creatinine (09/01/17 09:24) I-Stat Profile (09/01/17 09:24) Prothrombin Time / Inr (Pt) (09/01/17 09:24) Act Partial Throm Time (Ptt) (09/01/17 09:24) Complete Blood Count With Diff (09/01/17 09:24) Fibrinogen (09/01/17 09:24) Creatine Kinase (Cpk) (09/01/17 09:24) Troponin I (09/01/17 09:24) Ua Includes Microscopic (09/01/17 09:24) Drug Screen, Random Urine (09/01/17:24) Type And Screen (09/01/17 09:24) Ct Brain W/O Iv Contrast(Rout) (09/01/17 ) Consult Neurology (09/01/17 ) Blood Glucose (09/01/17 09:24) Ecg Monitoring (09/01/17:24) Neuro Checks Q2HX12,Q4H (09/01/17 09:24) Nursing Bedside Swallow Assess .ONCE (09/01/17 09:24) Iv Access Insert/Monitor (09/01/17 09:24) NPO (09/01/17 09:24) Oximetry (09/01/17 09:24) Oxygen Administration (09/01/17 09:24) Sodium Chlor 0.9% 1000 Ml Inj (Ns 1000 M (09/01/17 09:24) Resp Oxygen Kana C Titrat 1-4 L (09/01/17 09:24) Cath For Specimen (09/01/17 09:24) (Hub Use Only)Inp Phy Cons/Ref (09/01/17 ) Admit Order (Ed Use Only) (09/01/17 ) [employer] / Telemetry [id number] (09/01/17 10:42) Activity Bed Rest (09/01/17 10:42) Labs Laboratory Tests Test 09/01/17 09:25 09/01/17 10:45 White Blood Count 10.0 TH/MM3 Red Blood Count 2.72 MIL/MM3 Hemoglobin 8.3 GM/DL Bedside Hemoglobin 8.2 G/DL Hematocrit 24.5 % Bedside Hematocrit 24.0 % Mean Corpuscular Volume 90.0 FL Mean Corpuscular Hemoglobin 30.5 PG Mean Corpuscular Hemoglobin Concent 33.9 % Red Cell Distribution Width 16.9 % Platelet Count 550 TH/MM3 Mean Platelet Volume 8.1 FL Neutrophils (%) (Auto) 78.5 % Lymphocytes (%) (Auto) 8.3 % Monocytes (%) (Auto) 9.4 % Eosinophils (%) (Auto) 3.4 % Basophils (%) (Auto) 0.4 % Neutrophils # (Auto) 7.9 TH/MM3 Lymphocytes # (Auto) 0.8 TH/MM3 Monocytes # (Auto) 0.9 TH/MM3 Eosinophils # (Auto) 0.3 TH/MM3 Basophils # (Auto) 0.0 TH/MM3 CBC Comment DIFF FINAL Differential Comment Prothrombin Time 10.8 SEC Prothromb Time International Ratio 1.1 RATIO Activated Partial Thromboplast Time 28.9 SEC Fibrinogen 665 mg/dL Bedside Sodium 138 MMOL/L Bedside Potassium 4.3 MMOL/L Bedside Chloride 99 MMOL/L Bedside Blood Urea Nitrogen 40 MG/DL Bedside Creatinine 2.2 MG/DL Bedside Glucose 121 MG/DL Hemoglobin A1c 5.3 % Total Creatine Kinase 67 U/L Troponin I LESS THAN 0.02 NG/ML Urine Color LIGHT-YELLOW Urine Turbidity CLEAR Urine pH 6.5 Urine Specific [place] 1.008 Urine Protein 30 mg/dL Urine Glucose (UA) NEG mg/dL Urine Ketones NEG mg/dL Urine Occult Blood MOD Urine Nitrite NEG Urine Bilirubin NEG Urine Urobilinogen LESS THAN 2.0 MG/DL Urine Leukocyte Esterase NEG Urine RBC 35 /hpf Urine WBC 2 /hpf Urine Amorphous Sediment FEW Urine Mucus FEW /lpf Urine Opiates Screen POS Urine Barbiturates Screen NEG Urine Amphetamines Screen NEG Urine Benzodiazepines Screen NEG Urine Cocaine Screen NEG Urine Cannabinoids Screen NEG MDM Medical Decision Making Medical Screen Exam Complete: Yes Emergency Medical Condition: Yes Medical Record Reviewed: Yes Differential Diagnosis CVA, TIA, sz Narrative Course Patient is a stroke alert however circular canceled because the patient's on Xarelto and recently had a surgery in the right hip. At 81 these are considered contraindications to TPA. Case was discussed with on-call neurologist Dr. Garcia. We both agree that alteplase is not indicated. This was discussed with the patient verbalized understanding. The patient will be admitted for stroke workup. EKG shows a sinus rhythm with a rate of 76 with left axis deviation CBC & BMP Diagram 09/01/17 09:[address] 09/01/17 0000 Signed Impressions: Service Date/Time: Friday, September 01, 2017 09:29 - CONCLUSION: 1. No acute intracranial findings. 2. Left maxillary sinus mucosal thickening. Bradley Reyes MD Pt to be admitted by Dr Romero Critical Care Narrative Aggregate critical care time was 30 minutes. Time to perform other separately billable procedures was not included in the critical care time. My time did not include minutes spent treating any other patients simultaneously or on activities that did not directly contribute to the patient's treatment. The services I provided to this patient were to treat and/or prevent clinically significant deterioration that could result in: Permanent weakness/disability, neurologic deficit I provided critical care services requiring my management, as noted below: Chart data review, documentation time, medication orders and management, vital sign assessments/reviewing monitor data, ordering and reviewing lab tests, ordering and interpreting/reviewing x-rays and diagnostic studies, care of the patient and discussion of the patient with the admitting physicians. Diagnosis Primary Impression: CVA (cerebral vascular accident) Qualified Codes: I63.9 - Cerebral infarction, unspecified Admitting Information Admitting Physician Requests: Admit Roni Wells MD Sep 01, 2017 09:57
[2017-09-01 09:58] LABS: TROPONIN I LESS THAN 0.02 NG/ML (0.02-0.05)
[2017-09-01 11:14] LABS: AMORPHOUS SEDIMENT, URINE FEW; BILIRUBIN, URINE NEG (NEG); BLOOD, URINE MOD (NEG); GLUCOSE,URINE NEG (NEG); KETONE, URINE NEG (NEG); MUCUS URINE FEW /lpf (OCC); NITRITE,URINE NEG (NEG); PH, URINE 6.5 (5.0-8.5); URINE COLOR LIGHT-YELLOW (YELLW/STRAW); URINE LEUKOCYTE ESTERASE NEG (NEG)
--- NOTE | 2017-09-01 12:30 | HHI.HP ---
[facility] Unknown Admission Diagnosis Acute Ischemic CVA Diagnoses: Travel History International Travel<30 Days: No Contact w/Intl Traveler <30 Da: No Traveled to Known Affected Are: No History of Present Illness Is an 81-year-old male who arrived to the ER via stroke alert. The patient recently had right hip surgery and was in rehabilitation. During morning rounds morning he noted a right facial droop. He was then brought by EMS to the ER. The patient is on Xarelto for anticoagulation. Facial droop was noted in the ER, patient not a candidate for tpa given he is on anticoagulation. In the ER CT head done which was negative for any acute process. Dr. Garcias was contacted from ER. Stroke alert cancelled given the contraindications to tpa. He is admitted for further stroke workup. The patient states that this morning in his room he began to feel dizzy and lightheaded. He let his nurse know what he was feeling. This is when he was told that he needs to go to the hospital. He notes no slurring of speech. He states he feels strong equally in upper his lower extremities, except for the right lower extremity due to his recent surgery. He reports a history of stroke proximally one year ago that affected the left side of his face where he experienced slurring of speech. He had no residual deficits. Otherwise the patient feels well and like himself. Review of Systems Constitutional: COMPLAINS OF: Diaphoretic episodes, DENIES: Fever, Chills Eyes: DENIES: Blurred vision, Double Vision Ears, nose, mouth, throat: COMPLAINS OF: Vertigo, DENIES: Hearing loss Respiratory: DENIES: Shortness of breath Cardiovascular: DENIES: Chest pain, Palpitations, Syncope, Dyspnea on Exertion Gastrointestinal: DENIES: Abdominal pain Genitourinary: DENIES: Urinary incontinence Musculoskeletal: COMPLAINS OF: Joint pain, Stiffness Neurologic: COMPLAINS OF: Abnormal gait, Headache, Poor Balance, DENIES: Localized weakness, Speech Problems Psychiatric: DENIES: Anxiety, Mood changes, Hallucinations Past Family Social History Past Medical History Hearing loss HLD HTN TIA Past Surgical History Right hip hemiarthroplasty appendectomy hernia repair chronic kidney disease Allergies: Coded Allergies: No Known Allergies (Verified Adverse Reaction, Unknown, 09/01/17) Social History denies alcohol and illicit drug use tobacco history, stopped over 40 years ago Physical Exam Vital Signs Vital Signs Date Time Temp Pulse Resp B/P (MAP) Pulse Ox O2 Delivery O2 Flow Rate FiO2 09/01/17 11:30 74 130/66 (87) 09/01/17 11:00 77 17 135/64 (87) 98 Room Air 09/01/17 09:55 98 Nasal Cannula 2.00 09/01/17 09:55 98 Nasal Cannula 2.00 09/01/17 09:46 98.0 81 17 147/72 (97) 98 09/01/17 09:40 77 18 162/71 (101) 97 Nasal Cannula 2.00 Physical Exam GENERAL: This is a well-nourished, well-developed patient, in no apparent distress. SKIN: No rashes, ecchymoses or lesions. Cool and dry. HEAD: Atraumatic. Normocephalic. No temporal or scalp tenderness. EYES: Pupils equal round and reactive. Extraocular motions intact. No scleral icterus. ENT: Nose without bleeding, purulent drainage or septal hematoma. Throat without erythema, tonsillar hypertrophy or exudate. Uvula midline. Airway patent. NECK: Trachea midline. No JVD or lymphadenopathy. Supple, nontender, no meningeal signs. CARDIOVASCULAR: Regular rate and rhythm without murmurs, gallops, or rubs. RESPIRATORY: Clear to auscultation. Breath sounds equal bilaterally. No wheezes , rales, or rhonchi. GASTROINTESTINAL: Abdomen soft, non-tender, nondistended. No hepato-splenomegaly , or palpable masses. No guarding. MUSCULOSKELETAL: Extremities without clubbing, cyanosis, or edema. Right hip pain. NEUROLOGICAL: Awake and alert. Cranial nerves II through XII intact. Motor and sensory grossly within normal limits. Five out of 5 muscle strength in all muscle groups. Normal speech. Laboratory Laboratory Tests Test 09/01/17 09:25 09/01/17 10:45 White Blood Count 10.0 Red Blood Count 2.72 Hemoglobin 8.3 Bedside Hemoglobin 8.2 Hematocrit 24.5 Bedside Hematocrit 24.0 Mean Corpuscular Volume 90.0 Mean Corpuscular Hemoglobin 30.5 Mean Corpuscular Hemoglobin Concent 33.9 Red Cell Distribution Width 16.9 Platelet Count 550 Mean Platelet Volume 8.1 Neutrophils (%) (Auto) 78.5 Lymphocytes (%) (Auto) 8.3 Monocytes (%) (Auto) 9.4 Eosinophils (%) (Auto) 3.4 Basophils (%) (Auto) 0.4 Neutrophils # (Auto) 7.9 Lymphocytes # (Auto) 0.8 Monocytes # (Auto) 0.9 Eosinophils # (Auto) 0.3 Basophils # (Auto) 0.0 CBC Comment DIFF FINAL Differential Comment Prothrombin Time 10.8 Prothromb Time International Ratio 1.1 Activated Partial Thromboplast Time 28.9 Fibrinogen 665 Bedside Sodium 138 Bedside Potassium 4.3 Bedside Chloride 99 Bedside Blood Urea Nitrogen 40 Bedside Creatinine 2.2 Bedside Glucose 121 Total Creatine Kinase 67 Troponin I LESS THAN 0.02 Urine Color LIGHT-YELLOW Urine Turbidity CLEAR Urine pH 6.5 Urine Specific [place] 1.008 Urine Protein 30 Urine Glucose (UA) NEG Urine Ketones NEG Urine Occult Blood MOD Urine Nitrite NEG Urine Bilirubin NEG Urine Urobilinogen LESS THAN 2.0 Urine Leukocyte Esterase NEG Urine RBC 35 Urine WBC 2 Urine Amorphous Sediment FEW Urine Mucus FEW Urine Opiates Screen POS Urine Barbiturates Screen NEG Urine Amphetamines Screen NEG Urine Benzodiazepines Screen NEG Urine Cocaine Screen NEG Urine Cannabinoids Screen NEG Result Diagram: 09/01/17 0925 Imaging Last Impressions Head CT 09/01/17 0000 Signed Impressions: Service Date/Time: Friday, September 01, 2017 09:29 - CONCLUSION: 1. No acute intracranial findings. 2. Left maxillary sinus mucosal thickening. Bradley Reyes MD Caprini VTE Risk Assessment Caprini VTE Risk Assessment: Mod/High Risk (score >= 2) Caprini Risk Assessment Model Point Value = 1 Point Value = 2 Point Value = 3 Point Value = 5 Age 41-60 Minor surgery BMI > 25 kg/m2 Swollen legs Varicose veins or History of unexplained or recurrent spontaneous Oral contraceptives or hormone replacement Sepsis (< 1 month) Serious lung disease, including pneumonia (< 1 month) Abnormal pulmonary function Acute myocardial infarction Congestive heart failure (< 1 month) History of inflammatory bowel disease Medical patient at bed rest Age 61-74 Arthroscopic surgery Major open surgery (> 45 min) Laparoscopic surgery (> 45 min) Malignancy Confined to bed (> 72 hours) Immobilizing plaster cast Central venous access Age >= 75 History of VTE Family history of VTE Factor V Leiden Prothrombin [id number] Lupus anticoagulant Anticardiolipin antibodies Elevated serum homocysteine Heparin-induced thrombocytopenia Other congenital or acquired thrombophilia Stroke (< 1 month) Elective arthroplasty Hip, pelvis, or leg fracture Acute spinal cord injury (< 1 month) Prophylaxis Regimen Total Risk Factor Score Risk Level Prophylaxis Regimen 0-1 Low Early ambulation 2 Moderate Order ONE of the following: *Sequential Compression Device (SCD) *Heparin 5000 units SQ BID 3-4 Higher Order ONE of the following medications: *Heparin 5000 units SQ TID *Enoxaparin/Lovenox 40 mg SQ daily (WT < 150 kg, CrCl > 30 mL/min) *Enoxaparin/Lovenox 30 mg SQ daily (WT < 150 kg, CrCl > 10-29 mL/min) *Enoxaparin/Lovenox 30 mg SQ BID (WT < 150 kg, CrCl > 30 mL/min) AND/OR *Sequential Compression Device (SCD) 5 or more Highest Order ONE of the following medications: *Heparin 5000 units SQ TID (Preferred with Epidurals) *Enoxaparin/Lovenox 40 mg SQ daily (WT < 150 kg, CrCl > 30 mL/min) *Enoxaparin/Lovenox 30 mg SQ daily (WT < 150 kg, CrCl > 10-29 mL/min) *Enoxaparin/Lovenox 30 mg SQ BID (WT < 150 kg, CrCl > 30 mL/min) AND *Sequential Compression Device (SCD) Assessment and Plan Problem List: (1) Hip fracture ICD Code: S72.009A - Fracture of unspecified part of neck of unspecified femur , initial encounter for closed fracture (2) Facial droop ICD Code: R29.810 - Facial weakness Status: Acute (3) HTN (hypertension) ICD Code: I10 - Essential (primary) hypertension Status: Acute Assessment and Plan 81 yo male who is s/p right hip arthroplasty about a month ago on xarelto, presented to ED with facial droop, admitted for stroke wok up. Facial Droop CVA vs. TIA - Neuro consulted - CT negative - MRI, Carotid US, Echo ordered and pending - head of bed flat, allow permissive HTN for 24 hrs - stroke protocol, neuro checks - telemetry - PT, OT, ST - start ASA, continue Xarelto HTN - all permissive HTN, home home BP meds Right Hip Arthroplasty - continue xarelto - PT tomorrow Code Status DNR Discussed Condition With ER Physician Dr. Garcias Physician Certification 2 Midnight Certification Type: Admission for Inpatient Services Order for Inpatient Services The services are ordered in accordance with Medicare regulations or non- Medicare payer requirements, as applicable. In the case of services not specified as inpatient-only, they are appropriately provided as inpatient services in accordance with the 2-midnight benchmark. Estimated LOS (days): 2 days is the estimated time the patient will need to remain in the hospital, assuming treatment plan goals are met and no additional complications. Post-Hospital Plan: SNF Mercedes Romero MD Sep 01, 2017 12:30
[2017-09-01] MEDS ORDERED: SODIUM CHLORIDE 0.9% FLUSH 10 ML FLUSH IV FLUSH PRN (12:45)
[2017-09-01] MEDS ORDERED: DEXTROSE 50% IN WATER 50 ML VIAL(D50) IV PUSH PRN (12:45)
[2017-09-01] MEDS ORDERED: GLUCAGON 1 MG/ML VIAL OTHER PRN (12:45)
[2017-09-01] MEDS ORDERED: ENALAPRILAT 1.25 MG/ML VIAL IV PUSH PRN (12:45)
[2017-09-01 13:44] LABS: HEMOGLOBIN A1C 5.3 % (4.3-6.0)
--- NOTE | 2017-09-01 14:21 | RADRPT ---
EXAM DATE/TIME: 09/01/2017 13:28 [facility] COMPARISON: No previous studies available for comparison. INDICATIONS : Cerebrovascular accident. MEDICAL HISTORY : Cardiac disorder. Hypercholesterol. Hernia. Hypertension. SURGICAL HISTORY : Hernia repair. Right femur and hip surgery. ENCOUNTER: Initial ACUITY: 1 day PAIN SCORE: 0/10 LOCATION: Bilateral neck PEAK SYSTOLIC VELOCITIES (cm/sec): ICA/CCA RATIO: Right: 1.2 Left: 2.0 ICA: Right: 87 Left: 172 CCA: Right: 72 Left: 87 ECA: Right: 96 Left: 89 VERTEBRAL: Right: 46 antegrade Left: 50 antegrade Elevated flow velocities and ICA/CCA ratios have been found to correlate with increased degrees of vessel stenosis, calculated as percentage of diameter relative to a normal segment of distal ICA/CCA FINDINGS: RIGHT CAROTID: No significant stenosis is visualized. Mild plaque is present in the carotid bulb and bifurcation. Th e waveforms are within normal limits. LEFT CAROTID: No significant stenosis is visualized. Mild to moderate plaque is present in the carotid bulb and bif urcation with mild posterior shadowing in the proximal internal carotid artery. There is no objective effect. + The waveforms are within normal limits. VERTEBRAL ARTERIES: Antegrade flow is seen in both vertebral arteries. MISCELLANEOUS: None. CONCLUSION: 1. 50-69% diameter stenosis in the left internal carotid artery by velocity criteria. 2. Less than 50% stenosis in the right internal carotid artery. 3. Normal antegrade flow in both vertebral arteries. Jez Gutierrez MD on September 01, 2017 at 14:16 Board Certified Radiologist. This report was verified electronically.
[2017-09-01] MEDS: ASPIRIN 325 MG TAB PO SCH (15:14)
[2017-09-01] MEDS: ACETAMINOPHEN/HYDROcodone 325 MG/7.5 MG TAB PO PRN ×2 (17:23→22:50)
--- NOTE | 2017-09-01 17:23 | RADRPT ---
EXAM DATE/TIME: 09/01/2017 16:57 [facility] COMPARISON: CT BRAIN W/O CONTRAST, September 01, 2017, 9:29. MRI BRAIN W/O CONTRAST, July 21, 2016, 20:32. INDICATIONS : Dizziness. MEDICAL HISTORY : Hypertension. CVA. SURGICAL HISTORY : Inguinal hernia repair. Appendectomy. ORIF right hip. ENCOUNTER: Initial ACUITY: 1 day PAIN SCORE: 0/10 LOCATION: cranial TECHNIQUE: Multiplanar, multisequence MRI of the brain was performed without contrast. FINDINGS: CEREBRUM: The ventricles are normal for age. No evidence of midline shift, mass lesion, hemorrhage or acute in farction. No extraaxial fluid collections are seen. The pituitary gland and suprasellar cistern are normal in configuration. WHITE MATTER: Moderate severity chronic flair signal abnormality and scattered subcentimeter old lacunar infarcts s een in the bilateral periventricular white matter. POSTERIOR FOSSA: The cerebellum and brainstem are intact. The 4th ventricle is midline. The cerebellopontine angle is unremarkable. The cerebellar tonsils are normal in position. DIFFUSION IMAGING: No focal areas of restricted diffusion are seen. No evidence of acute infarction. EXTRACRANIAL: There is mucoperiosteal thickening of the visualized left maxillary air cell. CONCLUSION: 1. No acute infarct or other acute intracranial abnormality demonstrated. 2. Chronic white matter changes and old subcentimeter lacunar infarcts. 3. Left maxillary sinus disease. Larry Wallis MD on September 01, 2017 at 17:18 Board Certified Radiologist. This report was verified electronically.
[2017-09-01] MEDS: INSULIN ASPART SUPPLEMENTAL SCALE SQ SCH ×2 (17:43→21:00)
[2017-09-01] MEDS: SODIUM CHLORIDE 0.9% FLUSH 10 ML FLUSH IV FLUSH SCH (22:38)
[2017-09-02] VITALS (9 sets, daily range): BP systolic 134–157; BP diastolic 63–70; PULSE 69–97; RESP 17–18; TEMP 97.8–99; O2SAT 97–100
[2017-09-02] MEDS: INSULIN ASPART SUPPLEMENTAL SCALE SQ SCH ×4 (08:00→20:16)
[2017-09-02 08:14] LABS: AUTOMATED NEUTROPHIL # 4.6 TH/MM3 (1.8-7.7); BASOPHIL % 0.7 % (0.0-2.0); EOSINOPHIL # 0.3 TH/MM3 (0-0.4); EOSINOPHIL % 5.3 % (0.0-4.0); HEMATOCRIT 24.5 % (39.0-51.0); HEMOGLOBIN 8.1 GM/DL (13.0-17.0); LYMPH % 11.8 % (9.0-44.0); LYMPHOCYTE # 0.8 TH/MM3 (1.0-4.8); MEAN CELL VOLUME 90.4 FL (80.0-100.0); MEAN CORPUSCULAR HGB CONC 33.2 % (32.0-36.0); MEAN PLATELET VOLUME 8.3 FL (7.0-11.0); MONO % 11.3 % (0.0-8.0); MONOCYTE # 0.7 TH/MM3 (0-0.9); NEUT % 70.9 % (16.0-70.0); PLATELET COUNT 487 TH/MM3 (150-450); RED BLOOD COUNT 2.71 MIL/MM3 (4.50-5.90); RED CELL DISTRIBUTION WIDTH 16.6 % (11.6-17.2); WHITE BLOOD COUNT 6.4 TH/MM3 (4.0-11.0)
[2017-09-02 08:32] LABS: BICARBONATE 28.2 MEQ/L (21.0-32.0); CALCIUM 8.6 MG/DL (8.5-10.1); CREATININE 1.85 MG/DL (0.60-1.30)
[2017-09-02 08:34] LABS: CHOLESTEROL/ HDL RATIO 3.61 RATIO; HDL CHOLESTEROL 39.6 MG/DL (40.0-60.0)
[2017-09-02] MEDS: ASPIRIN 325 MG TAB PO SCH (08:49)
[2017-09-02] MEDS: SODIUM CHLORIDE 0.9% FLUSH 10 ML FLUSH IV FLUSH SCH ×2 (08:49→20:16)
[2017-09-02] MEDS: RIVAROXABAN 10 MG TAB PO SCH (08:49)
--- NOTE | 2017-09-02 09:48 | HHI.PR ---
Subjective Remarks Patient seen and examined this morning. Vitals are stable, afebrile. Minimal hypertension. Wants to know if he can go back to rehab now. Feels well, breathing well, walked around halls without difficulties. Objective Vital Signs Date Time Temp Pulse Resp B/P (MAP) Pulse Ox O2 Delivery O2 Flow Rate FiO2 09/02/17 08:10 98.3 70 18 145/67 (93) 97 09/02/17 04:00 97.8 70 18 148/67 (94) 98 09/02/17 00:00 97.8 70 18 135/63 (87) 98 09/01/17 23:00 70 09/01/17 20:00 97.0 75 18 150/67 (94) 99 09/01/17 16:00 97.7 79 18 180/83 (115) 96 09/01/17 15:47 09/01/17 15:06 94 18 156/72 (100) 97 Nasal Cannula 2.00 09/01/17 11:30 74 130/66 (87) 09/01/17 11:00 77 17 135/64 (87) 98 Room Air 09/01/17 09:55 98 Nasal Cannula 2.00 09/01/17 09:55 98 Nasal Cannula 2.00 09/01/17 09:46 98.0 81 17 147/72 (97) 98 I/O 09/01/17 09/01/17 09/01/17 09/02/17 09/02/17 09/02/17 07:00 15:00 23:00 07:00 15:00 23:00 Output Total 1000 ml 650 ml Balance -1000 ml -650 ml Output Urine Total 1000 ml 650 ml # Voids 1 1 # Bowel Movements 0 0 Result Diagram: 09/02/17 0703 09/02/17 0705 Imaging Last Impressions Head CT 09/01/17 0000 Signed Impressions: Service Date/Time: Friday, September 01, 2017 09:29 - CONCLUSION: 1. No acute intracranial findings. 2. Left maxillary sinus mucosal thickening. Bradley Reyes MD Carotid Artery Ultrasound 09/01/17 0000 Signed Impressions: Service Date/Time: Friday, September 01, 2017 13:28 - CONCLUSION: 1. 50-69%% diameter stenosis in the left internal carotid artery by velocity criteria. 2. Less than 50%% stenosis in the right internal carotid artery. 3. Normal antegrade flow in both vertebral arteries. Jez Gutierrez MD Brain MRI 09/01/17 0000 Signed Impressions: Service Date/Time: Friday, September 01, 2017 16:57 - CONCLUSION: 1. No acute infarct or other acute intracranial abnormality demonstrated. 2. Chronic white matter changes and old subcentimeter lacunar infarcts. 3. Left maxillary sinus disease. Larry Wallis MD Objective Remarks GENERAL: elderly man, sitting up eating breakfast, nad SKIN: Warm and dry. HEAD: Normocephalic. EYES: No scleral icterus. No injection or drainage. NECK: Supple, trachea midline. No JVD or lymphadenopathy. CARDIOVASCULAR: Regular rate and rhythm RESPIRATORY: Breath sounds equal bilaterally. No accessory muscle use. GASTROINTESTINAL: Abdomen soft, non-tender, nondistended. MUSCULOSKELETAL: No cyanosis, or edema. Some right hip pain BACK: Nontender without obvious deformity. A/P Problem List: (1) HTN (hypertension) ICD Code: I10 - Essential (primary) hypertension Status: Acute (2) Facial droop ICD Code: R29.810 - Facial weakness Status: Acute (3) Hip fracture ICD Code: S72.009A - Fracture of unspecified part of neck of unspecified femur , initial encounter for closed fracture Assessment and Plan 81 yo male who is s/p right hip arthroplasty about a month ago on xarelto, presented to ED with facial droop, admitted for stroke wok up. Facial Droop--> resolved CVA vs. TIA - Neuro consulted - CT negative - MRI no acute infarct or other acute intracranial abnormalities, Carotid US shows 50-70% diameter stenosis and left internal carotid artery, less than 50% stenosis in the internal carotid - Echo May 2016 showed normal ejection fraction, normal wall motion - stroke protocol, neuro checks - telemetry - PT, OT, ST - start ASA, continue Xarelto HTN - allow permissive HTN, home home BP meds, plan to resume tomorrow morning Right Hip Arthroplasty - continue xarelto - PT eval Discharge Planning clearance per neuro, possible d/c back to SNF today or tomorrow. Mercedes Romero MD Sep 02, 2017 09:48
--- NOTE | 2017-09-02 13:06 | HHI.DCPOC ---
Discharge Care Plan Diagnosis: (1) Facial droop (2) HTN (hypertension) (3) Hip fracture Goals to Promote Your Health * To prevent worsening of your condition and complications * To maintain your health at the optimal level Directions to Meet Your Goals Take your medications as prescribed Follow your dietary instruction Follow activity as directed Keep your appointments as scheduled Take your immunizations and boosters as scheduled If your symptoms worsen call your PCP, if no PCP go to Urgent Care Center or Emergency Room Smoking is Dangerous to Your Health. Avoid second hand smoke Call the 24-hour hour crisis hotline for domestic abuse at Mercedes Romero MD Sep 02, 2017 13:06
--- NOTE | 2017-09-02 15:02 | EKG ---
Date Performed: 09/01/2017 Time Performed: 10:04:09 PTAGE: 81 years EKG: Sinus rhythm MARKED LEFT AXIS DEVIATION Since previous tracing, no significant change noted ABNORMAL ECG PREVIOUS TRACING : 08/28/2017 11.16 DOCTOR: Benji Enriquez Interpretating Date/Time 09/02/2017 15:00:11
--- NOTE | 2017-09-02 15:05 | ECHRPT ---
Indication: cva/tia CONCLUSIONS Normal left ventricular size. The left ventricular systolic function is low normal with an estimated ejection fraction in the rang e of 50- 55%. [id number] mitral valve regurgitation. No aortic valve regurgitation. There is mild tricuspid valve regurgitation. The estimated pulmonary arterial pressure is 39.8 mmHg. BP: / HR: Rhythm: MEASUREMENTS (Male / Female) Normal Values Technical Quality:Good 2D ECHO LV Diastolic Diameter PLAX 3.8 cm 4.2 - 5.9 / 3.9 - 5.3 cm LV Systolic Diameter PLAX 3.0 cm IVS Diastolic Thickness 1.4 cm 0.6 - 1.0 / 0.6 - 0.9 cm LVPW Diastolic Thickness 1.1 cm 0.6 - 1.0 / 0.6 - 0.9 cm LV Relative Wall Thickness 0.7 RV Internal Dim ED PLAX 3.3 cm M-MODE Aortic Root Diameter MM 3.3 cm LA Systolic Diameter MM 3.4 cm LA Ao Ratio MM 1.0 AV Cusp Separation MM 2.5 cm DOPPLER Mitral E Point Velocity 71.6 cm/s Mitral A Point Velocity 109.0 cm/s Mitral E to A Ratio 0.7 LV E' Lateral Velocity 9.3 cm/s Mitral E to LV E' Lateral Ratio 7.7 LV E' Septal Velocity 10.6 cm/s Mitral E to LV E' Septal Ratio 6.8 TR Peak Velocity 273.0 cm/s TR Peak Gradient 29.8 mmHg Right Atrial Pressure 10.0 mmHg Pulmonary Artery Systolic Pressu 39.8 mmHg Right Ventricular Systolic Press 39.8 mmHg FINDINGS LEFT VENTRICLE Normal left ventricular size. The left ventricular systolic function is low normal with an estimated ejection fraction in the rang e of 50- 55%. RIGHT VENTRICLE Normal right ventricular size and systolic function. LEFT ATRIUM The left atrial size is normal. RIGHT ATRIUM The right atrial size is normal. ATRIAL SEPTUM Normal atrial septal thickness without atrial level shunting by limited color doppler interrogation. AORTA The aortic root and proximal ascending aorta are normal in size on limited imaging. MITRAL VALVE Structurally normal mitral valve. Uirbi-[id number] mitral valve regurgitation. AORTIC VALVE Trileaflet aortic valve. No aortic valve regurgitation. TRICUSPID VALVE Structurally normal tricuspid valve. There is mild tricuspid valve regurgitation. The estimated pulmonary arterial pressure is 39.8 mmHg. PULMONARY VALVE No pulmonary valve regurgitation or stenosis. VESSELS The inferior vena cava is normal in size. PERICARDIUM No pericardial effusion. Beau Ramirez-Melissa MD (Electronically Signed) Final Date:02 September 2017 15:04
[2017-09-02] MEDS: ACETAMINOPHEN/HYDROcodone 325 MG/7.5 MG TAB PO PRN (23:24)
[2017-09-03 00:30] VITALS: BP 147/66; PULSE 79; RESP 17; TEMP 98.2; O2SAT 96
[2017-09-03 03:55] VITALS: PULSE 70
[2017-09-03 05:16] VITALS: BP 158/72; PULSE 75; RESP 17; TEMP 98; O2SAT 98
[2017-09-03] MEDS: ACETAMINOPHEN/HYDROcodone 325 MG/7.5 MG TAB PO PRN (05:27)
--- NOTE | 2017-09-03 05:35 | MB ---
cc: DARIA DICKENS DATE OF CONSULTATION 09/02/2017 REASON FOR CONSULTATION Stroke Alert. HISTORY OF PRESENT ILLNESS Mr. Otto is an 81-year-old male who presented to the emergency room at [facility] as a Stroke Alert. The patient was found to have left -sided facial droop, transported to the hospital. No headache, no seizure activity, no altered mental status. No weakness of an extremity was noted. His NIH Stroke Scale was noted to be 1. The patient is on anticoagulation Xarelto and he had recently had surgery on the right hip, thus he was deemed not a candidate for IV t-PA. I discussed the case with Dr. Wells the ED attending and we agreed on the plan to also admit the patient and do further workup. Head CT scan was negative for any acute intracranial pathology. During the encounter the patient states that he felt dizzy and lightheaded with some slurring of his speech and left facial drooping. He denies any history of head trauma or stroke. REVIEW OF SYSTEMS At 12-point review of systems is negative except what is stated in the HPI. PAST MEDICAL HISTORY 1. Hypertension. 2. Hyperlipidemia. 3. Hearing loss. 4. TIA. PAST SURGICAL HISTORY 1. Right hip hemiarthroplasty. 2. Appendectomy. 3. Hernia repair. 4. Chronic kidney disease. ALLERGIES No known allergies. SOCIAL HISTORY Denies alcohol or illicit drug abuse. Former smoker. PHYSICAL EXAMINATION GENERAL: Awake, alert, pleasant. Good historian. HEENT: Atraumatic, normocephalic. Intact hearing. Intact vision. NECK: Supple. No signs of meningeal irritation. No carotid bruits. CARDIOVASCULAR: Regular rate and rhythm. RESPIRATORY: Clear to auscultation. No wheezes. GASTROINTESTINAL: Soft abdomen. No distension. MUSCULOSKELETAL: Extremities without clubbing, cyanosis or edema. Mild right hip pain. NEUROLOGICAL: Awake, alert, oriented to time, person and place. No dysarthria , no dysphasia. Cranial nerves II through XII are grossly intact. No facial asymmetry. Intact facial sensation. No ptosis. No nystagmus. Upper and lower extremities 5/5, bilateral, symmetrical. No abnormal movement. Normal tone. Sensation intact throughout. Reflexes 1+ bilateral and symmetrical. Plantars are bilaterally downgoing. [id number] is intact. PSYCHIATRY: Intact mood and behavior. No hallucinations. DIAGNOSTIC STUDIES - Head CT scan without contrast, revealed no acute intracranial findings. - Carotid ultrasound revealed 50-69% stenosis in the left ICA and less than 50% stenosis in the right ICA. Normal antegrade flow in both vertebral arteries. - Brain MRI without contrast revealed no acute infarct or other acute intracranial abnormality. Chronic white matter changes and old sub-cm lacunar infarcts. DIAGNOSTIC IMPRESSION 1. TIA. Neurologic examination is nonfocal. 2. Carotid artery disease. 3. Hypertension. PLAN 1. The patient is neurologically stable. Examination is nonfocal. Neurologic investigation with no acute intracranial abnormality. 2. Continue Xarelto and aspirin 81 mg daily. 3. Goal blood pressure is 135-140/75-80. 4. PT and OT recommendations are appreciated. 5. Follow up with primary care physician for aortic monitoring of the carotid arteries and may follow up with vascular surgery as an outpatient. 6. Followup neurology as an outpatient. 7. Please call for questions. Thank you for the opportunity to participate in the care of your patient. MD ELIN Bolanos/ANA LAURA /7:46 PM /5:19 AM MAD[facility]
[2017-09-03 07:00] VITALS: PULSE 72
[2017-09-03] MEDS: INSULIN ASPART SUPPLEMENTAL SCALE SQ SCH ×2 (08:00→11:21)
[2017-09-03] MEDS: SODIUM CHLORIDE 0.9% FLUSH 10 ML FLUSH IV FLUSH SCH (08:07)
[2017-09-03] MEDS: ASPIRIN 325 MG TAB PO SCH (08:08)
[2017-09-03] MEDS: RIVAROXABAN 10 MG TAB PO SCH (08:08)
[2017-09-03 08:10] VITALS: BP 148/70; PULSE 72; RESP 18; TEMP 97.8; O2SAT 97
[2017-09-03 11:57] VITALS: BP 148/68; PULSE 72; RESP 18; TEMP 97.4; O2SAT 98
[2017-09-03] MEDS ORDERED: ASPI-516 CHEW (12:24)
--- NOTE | 2017-09-03 12:25 | HHI.DS ---
Discharge Summary Admission Date Sep 01, 2017 at 10:45 Discharge Date: Sep 03, 2017 Admitting Diagnosis Acute Ischemic CVA (1) Hip fracture ICD Code: S72.009A - Fracture of unspecified part of neck of unspecified femur , initial encounter for closed fracture (2) Facial droop ICD Code: R29.810 - Facial weakness Status: Acute (3) HTN (hypertension) ICD Code: I10 - Essential (primary) hypertension Status: Acute Procedures None Brief History - From Admission History of present illness by the admitting physician 81-year-old male who arrived to the ER via stroke alert. The patient recently had right hip surgery and was in rehabilitation. During morning rounds morning he noted a right facial droop. He was then brought by EMS to the ER. The patient is on Xarelto for anticoagulation. Facial droop was noted in the ER, patient not a candidate for tpa given he is on anticoagulation. In the ER CT head done which was negative for any acute process. Dr. Gracias was contacted from ER. Stroke alert cancelled given the contraindications to tpa. He is admitted for further stroke workup. The patient states that this morning in his room he began to feel dizzy and lightheaded. He let his nurse know what he was feeling. This is when he was told that he needs to go to the hospital. He notes no slurring of speech. He states he feels strong equally in upper his lower extremities, except for the right lower extremity due to his recent surgery. He reports a history of stroke proximally one year ago that affected the left side of his face where he experienced slurring of speech. He had no residual deficits. Otherwise the patient feels well and like himself. CBC/BMP: 09/02/17 0703 09/02/17 0705 Significant Findings Laboratory Tests Test 09/01/17 09:25 09/01/17 10:45 09/02/17 07:03 09/02/17 07:05 Red Blood Count 2.72 MIL/MM3 (4.50-5.90) 2.71 MIL/MM3 (4.50-5.90) Hemoglobin 8.3 GM/DL (13.0-17.0) 8.1 GM/DL (13.0-17.0) Bedside Hemoglobin 8.2 G/DL (13.0-17.0) Hematocrit 24.5 % (39.0-51.0) 24.5 % (39.0-51.0) Bedside Hematocrit 24.0 % (39.0-51.0) Platelet Count 550 TH/MM3 (150-450) 487 TH/MM3 (150-450) Neutrophils (%) (Auto) 78.5 % (16.0-70.0) 70.9 % (16.0-70.0) Lymphocytes (%) (Auto) 8.3 % (9.0-44.0) Monocytes (%) (Auto) 9.4 % (0.0-8.0) 11.3 % (0.0-8.0) Neutrophils # (Auto) 7.9 TH/MM3 (1.8-7.7) Lymphocytes # (Auto) 0.8 TH/MM3 (1.0-4.8) 0.8 TH/MM3 (1.0-4.8) Fibrinogen 665 mg/dL (227-377) Bedside Chloride 99 MMOL/L (102-111) Bedside Blood Urea Nitrogen 40 MG/DL (5-21) Bedside Creatinine 2.2 MG/DL (0.6-1.3) Bedside Glucose 121 MG/DL (68-110) Troponin I LESS THAN 0.02 NG/ML Urine Protein 30 mg/dL (NEG-TRACE) Urine Occult Blood MOD (NEG) Urine RBC 35 /hpf (0-3) Urine Mucus FEW /lpf (OCC) Urine Opiates Screen POS (NEG) Eosinophils (%) (Auto) 5.3 % (0.0-4.0) Blood Urea Nitrogen 33 MG/DL (7-18) Creatinine 1.85 MG/DL (0.60-1.30) Estimat Glomerular Filtration Rate 35 ML/MIN (>89) HDL Cholesterol 39.6 MG/DL (40.0-60.0) Imaging Last Impressions Head CT 09/01/17 0000 Signed Impressions: Service Date/Time: Friday, September 01, 2017 09:29 - CONCLUSION: 1. No acute intracranial findings. 2. Left maxillary sinus mucosal thickening. Bradley Reyes MD Carotid Artery Ultrasound 09/01/17 0000 Signed Impressions: Service Date/Time: Friday, September 01, 2017 13:28 - CONCLUSION: 1. 50-69%% diameter stenosis in the left internal carotid artery by velocity criteria. 2. Less than 50%% stenosis in the right internal carotid artery. 3. Normal antegrade flow in both vertebral arteries. Jez Gutierrez MD Brain MRI 09/01/17 0000 Signed Impressions: Service Date/Time: Friday, September 01, 2017 16:57 - CONCLUSION: 1. No acute infarct or other acute intracranial abnormality demonstrated. 2. Chronic white matter changes and old subcentimeter lacunar infarcts. 3. Left maxillary sinus disease. Larry Wallis MD PE at Discharge GENERAL: This is a well-nourished, well-developed patient, in no apparent distress. CARDIOVASCULAR: Normal rate and regular rhythm without murmurs, gallops, or rubs. RESPIRATORY: Good respiratory efforts. Breath sounds equal and clear to auscultation bilaterally. GASTROINTESTINAL: Abdomen soft, non-tender, non-distended. Normal active bowel sounds MUSCULOSKELETAL: Extremities without cyanosis, or edema. NEURO: Alert & Oriented x4 to person, place, time, situation. Moves all ext x4. Right lower extremity 4 out of 5, limited secondary to recent right hip surgery. PSYCH: Appropriate mood and affect. Pt update on day of discharge Patient reports is feeling well this morning. States he is ready to go home. Has been ambulating. No new neurological symptoms. Hospital Course 81 yo male who is s/p right hip arthroplasty about a month ago on Xarelto, presented to ED with facial droop with associated dizziness and intermittent speech difficulties. The patient was admitted for stroke workup. Patient was seen by neurology. MRI no acute infarct or other acute intracranial abnormalities, Carotid US shows 50-70% diameter stenosis and left internal carotid artery, less than 50% stenosis in the internal carotid. 2-D Echocardiogram unremarkable. The patient 's symptoms completely resolved. Per neurology recommendations, the patient is to continue on ASA, continue Xarelto Recent Right Hip Arthroplasty - Patient appeared to be doing well from that standpoint. He will continue physical therapy at home. Advised outpatient follow-up with orthopedics. Hypertension: Continue antihypertensives. Pt Condition on Discharge: Good Discharge Disposition: Disch w/ Home Health Serv Discharge Time: > 30 minutes Discharge Instructions DIET: Follow Instructions for: Heart Healthy Diet Activities you can perform: Regular-No Restrictions Other Activity Instructions: Use walker as needed. Follow up Referrals: PCP Follow-up PCP Follow-up New Medications: Aspirin (Aspirin) 81 Mg Chew 81 MG CHEW DAILY, #30 TAB 0 Refills Continued Medications: Amlodipine (Norvasc) 10 Mg Tab 10 MG PO DAILY for Blood Pressure Management, #30 TAB 0 Refills Calcium Carbonate-Vitamin D (Calcium 600+D 200) 600-200 Mg-Unit Tab 1 TAB PO BID for Nutritional Supplement, #90 TAB 0 Refills Ergocalciferol (Ergocalciferol) 50,000 Unit Cap 98941 UNITS PO Q7D for Nutritional Supplement, #8 CAP Hydrocodone-Acetaminophen (Hydrocodone-Acetaminophen) 7.5 Mg-325 Mg Tab 1 TAB PO Q4H PRN for PAIN, #60 TAB 0 Refills Loratadine (Claritin) 10 Mg Cap 10 MG PO DAILY for Allergy Management, CAP 0 Refills Rivaroxaban (Xarelto) 10 Mg Tab 10 MG PO DAILY for Blood Clot Prevention, #14 TAB 0 Refills Avi Greer MD Sep 03, 2017 12:25
--- NOTE | 2017-09-03 12:25 | HHI.FF ---
Face to Face Verification Diagnosis: (1) CVA (cerebral vascular accident) (2) HTN (hypertension) Physical Therapy Order: Evaluate and Treat, Improve ambulation, Strength and gait training Home Health Nursing Order: Medical education Signs/symptoms of disease process Medication education-adverse effect Nursing assessment with vital signs I have seen patient Rafael Otto on 09/03/17. My clinical findings support the need for the requested home health care services because: Limited ability to care for self Need for psychosocial assistance I certify that my clinical findings support that this patient is homebound because: Need for psychosocial assistance Avi Greer MD Sep 03, 2017 12:25
== END 2017-09-03 15:13 | disposition home health service (06) | DRG 69 ==
LOC: NEPC 09:19 → NEDA 10:45 → N05B 15:32
PROVIDERS: ADMIT Family Medicine; ATTEND Family Medicine
DX: G45.9 Transient cerebral ischemic attack, unspecified (principal); I10 Essential (primary) hypertension; I12.9 Hypertensive chronic kidney disease with stage 1 through stage 4 chronic kidney disease, or unspecified chronic kidney disease; I65.23 Occlusion and stenosis of bilateral carotid arteries; E78.00 Pure hypercholesterolemia, unspecified; R29.810 Facial weakness; R47.81 Slurred speech; E78.5 Hyperlipidemia, unspecified; N18.9 Chronic kidney disease, unspecified; M19.90 Unspecified osteoarthritis, unspecified site; H91.90 Unspecified hearing loss, unspecified ear; R29.701 NIHSS score 1; Z66 Do not resuscitate; Z68.20 Body mass index [BMI] 20.0-20.9, adult; Z79.01 Long term (current) use of anticoagulants; Z86.73 Personal history of transient ischemic attack (TIA), and cerebral infarction without residual deficits; Z87.891 Personal history of nicotine dependence; Z96.641 Presence of right artificial hip joint
CPT/HCPCS: 70450; 70551; 80048; 80061; 80307; 81001; 82435; 82550; 82565; 82947; 82948; 83036; 84132; 84295; 84484; 84520; 85025; 85384; 85610; 85730; 86850; 86900; 86901; 93005; 93306; 93880; 96360; J7030

== ENCOUNTER 2017-10-10 12:56 | Emergency (ER) | payer MEDICARE, OTHER ==
[~2017-10-10] VITALS: Ht 172.7 cm; Wt 59.0 kg
[~2017-10-10 12:56] MED LIST changes: +ASPI-516 CHEW
[2017-10-10 13:02] VITALS: BP 157/67; PULSE 53; RESP 16; TEMP 97.2; O2SAT 100
--- NOTE | 2017-10-10 13:35 | PD ---
HPI Chief Complaint: GI Complaint Time Seen by Provider: 13:32 Travel History International Travel<30 days: No Contact w/Intl Traveler<30days: No Traveled to known affect area: No History of Present Illness HPI This patient has a history of a previous hernia repair. States his primary care is Dr. Garcia. Patient comes in stating that today he had a relatively acute onset abdominal pain nausea vomiting 2 although that seemed to resolve but he is noticed a lump on his right groin area which has not gone down. He states that in the past has been able to push that lot back in however today he was not able to. Not because it is painful anything but is just that he is unable to pressure back in. No known drug allergies Past medical and surgical history significant for hypercholesterolemia, hypertension, dizziness, CVA, appendectomy, hernia repair, as well as orthopedic surgeries to the hip and right femur PFSH Past Medical History Hx Anticoagulant Therapy: Yes Arthritis: Yes Cancer: No Cardiovascular Problems: Yes High Cholesterol: Yes Cerebrovascular Accident: Yes Diminished Hearing: Yes (HEARING PROBLEMS) Endocrine: No Genitourinary: No Hypertension: Yes Immune Disorder: No Implanted Vascular Access Dvce: No Musculoskeletal: Yes Neurologic: Yes Psychiatric: No Reproductive: No Respiratory: Yes Immunizations Current: Yes Past Surgical History Abdominal Surgery: Yes (hernia repair , appendectomy) Appendectomy: Yes Other Surgery: Yes Social History Alcohol Use: No Tobacco Use: No (QUIT 40 YEARS AGO) Substance Use: No Allergies-Medications (Allergen,Severity, Reaction): Coded Allergies: No Known Allergies (Verified Adverse Reaction, Unknown, 10/10/17) Reported Meds & Prescriptions Reported Meds & Active Scripts Active Aspirin 81 Mg Chew 81 Mg CHEW DAILY Norvasc (Amlodipine Besylate) 10 Mg Tab 10 Mg PO DAILY Calcium 600+D 200 (Calcium Carbonate-Vitamin D) 600-200 Mg-Unit Tab 1 Tab PO BID Ergocalciferol 50,000 Unit Cap 50,000 Units PO Q7D Reported Claritin (Loratadine) 10 Mg Cap 10 Mg PO DAILY Review of Systems General / Constitutional: No: Fever Eyes: No: Visual changes HENT: No: Headaches Cardiovascular: No: Chest Pain or Discomfort Respiratory: No: Shortness of Breath Gastrointestinal: Positive: Nausea, Vomiting, Abdominal Pain Genitourinary: No: Dysuria Musculoskeletal: No: Pain Skin: No Rash Neurologic: No: Weakness Psychiatric: No: Depression Endocrine: No: Polydipsia Hematologic/Lymphatic: No: Easy Bruising Physical Exam Narrative GENERAL: Pleasant elderly white male who is hard of hearing but follows commands well SKIN: Warm and dry. HEAD: Atraumatic. Normocephalic. EYES: Pupils equal and round. No scleral icterus. No injection or drainage. ENT: No nasal bleeding or discharge. Mucous membranes pink and moist. NECK: Trachea midline. No JVD. CARDIOVASCULAR: Regular rate and rhythm. RESPIRATORY: No accessory muscle use. Clear to auscultation. Breath sounds equal bilaterally. GASTROINTESTINAL: Abdomen soft, non-tender, nondistended, bowel sounds present, no rebound/guarding/rigidity... Right femoral triangle area has a golf ball size lump which is not reducible. MUSCULOSKELETAL: Extremities without clubbing, cyanosis, or edema. No obvious deformities. NEUROLOGICAL: Awake and alert. No obvious cranial nerve deficits. Motor grossly within normal limits. Five out of 5 muscle strength in the arms and legs. Normal speech. PSYCHIATRIC: Appropriate mood and affect; insight and judgment normal. Data Data Last Documented VS Vital Signs Date Time Temp Pulse Resp B/P (MAP) Pulse Ox O2 Delivery O2 Flow Rate FiO2 10/10/17 15:45 70 16 170/75 (106) 98 Room Air 10/10/17 13:02 97.2 Orders Orders Complete Blood Count With Diff (10/10/17 13:45) Comprehensive Metabolic Panel (10/10/17 13:45) Lipase (10/10/17 13:45) Ct Abd/Pel W/O Iv Contrast (10/10/17 13:45) Iv Access Insert/Monitor (10/10/17 13:45) Ecg Monitoring (10/10/17 13:45) Oximetry (10/10/17 13:45) NPO (10/10/17 13:45) Sodium Chlor 0.9% 1000 Ml Inj (Ns 1000 M (10/10/17 13:45) Sodium Chloride 0.9% Flush (Ns Flush) (10/10/17 13:45) Diatrizoate Liq ( Gastroyolanda Liq) (10/10/17 14:23) Morphine Inj (Morphine Inj) (10/10/17 15:45) Ondansetron Inj (Zofran Inj) (10/10/17 15:45) Admit Order (Ed Use Only) (10/10/17 16:33) Labs Laboratory Tests Test 10/10/17 14:04 White Blood Count 9.0 TH/MM3 Red Blood Count 3.34 MIL/MM3 Hemoglobin 9.8 GM/DL Hematocrit 31.0 % Mean Corpuscular Volume 92.9 FL Mean Corpuscular Hemoglobin 29.2 PG Mean Corpuscular Hemoglobin Concent 31.5 % Red Cell Distribution Width 13.6 % Platelet Count 391 TH/MM3 Mean Platelet Volume 7.7 FL Neutrophils (%) (Auto) 92.3 % Lymphocytes (%) (Auto) 4.5 % Monocytes (%) (Auto) 2.7 % Eosinophils (%) (Auto) 0.2 % Basophils (%) (Auto) 0.3 % Neutrophils # (Auto) 8.4 TH/MM3 Lymphocytes # (Auto) 0.4 TH/MM3 Monocytes # (Auto) 0.2 TH/MM3 Eosinophils # (Auto) 0.0 TH/MM3 Basophils # (Auto) 0.0 TH/MM3 CBC Comment DIFF FINAL Differential Comment Blood Urea Nitrogen 29 MG/DL Creatinine 1.70 MG/DL Random Glucose 127 MG/DL Total Protein 7.5 GM/DL Albumin 3.2 GM/DL Calcium Level 8.9 MG/DL Alkaline Phosphatase 89 U/L Aspartate Amino Transf (AST/SGOT) 16 U/L Alanine Aminotransferase (ALT/SGPT) 13 U/L Total Bilirubin 0.3 MG/DL Sodium Level 138 MEQ/L Potassium Level 4.4 MEQ/L Chloride Level 105 MEQ/L Carbon Dioxide Level 26.7 MEQ/L Anion Gap 6 MEQ/L Estimat Glomerular Filtration Rate 39 ML/MIN Lipase 118 U/L [facility] Medical Decision Making Medical Screen Exam Complete: Yes Emergency Medical Condition: Yes Medical Record Reviewed: Yes Differential Diagnosis Pancreatitis versus colitis versus diverticulitis versus uremia v incarcerated hernia Narrative Course CBC shows no leukocytosis however there is anemia of 9.8/31 as well as slight neutrophilia of 92% despite the fact that there is no leukocytosis. Chemistry shows normal electrolytes however there is some prerenal azotemia of 29/1.7 with an estimated GFR of 39 he is known to have chronic kidney disease, patient has normal liver functions normal bilirubin normal alk phos as well as normal lipase. Patient is currently as of [address] abdomen and pelvis which will be p.o. contrast only the patient has already started drinking his contrast CT resulted at 1606..... CT shows a large right inguinal hernia which contains a loop of distal small bowel and mesenteric fat the oral contrast stops part of the way through suggesting an ileus or partial obstruction. There is also extensive sigmoid diverticulosis without diverticulitis. CT is confirming essentially an incarcerated hernia that was made clinically, will be calling the general surgeon, Dr. ceballos, and medicine for admission Physician Communication Physician Communication Discussed case with , gen surg, who will come to bedside for possible reduction if unsuccessful then possible surgery......... at around 1700 after the patient has had an ice pack to his inguinal region for about 2 hours reattempted to reduce and reduction was successful. Dr. CEBALLOS was called to made aware of the CHANGE..... At around 1610 AT BEDSIDE , after examining the patient post reduction his general surgeon does not feel the need that this patient is to be admitted instead recommends outpatient follow-up with him. This was discussed with Dr. Flores from [facility] who will withdraw admitting orders due to the successful reduction of the inguinal incarcerated inguinal hernia Diagnosis Primary Impression: Incarcerated right inguinal hernia status post reduction Admitting Information Admitting Physician Requests: Observation Referrals: Erik Ceballos MD Patient Instructions: General Instructions, Inguinal Hernia (DC) Disposition: 01 DISCHARGE HOME Condition: Stable Jimmy Cali MD Oct 10, 2017 13:35
[2017-10-10] MEDS ORDERED: SODIUM CHLORIDE 0.9% FLUSH 10 ML FLUSH IV FLUSH PRN ×2 (13:45→17:30)
[2017-10-10] MEDS ORDERED: SODIUM CHLOR 0.9% 1000 ML INJ 1,000 ML IV SCH (13:45)
[2017-10-10 14:00] VITALS: RESP 16; O2SAT 99
[2017-10-10 14:09] LABS: AUTOMATED NEUTROPHIL # 8.4 TH/MM3 (1.8-7.7); BASOPHIL % 0.3 % (0.0-2.0); EOSINOPHIL % 0.2 % (0.0-4.0); HEMOGLOBIN 9.8 GM/DL (13.0-17.0); LYMPH % 4.5 % (9.0-44.0); LYMPHOCYTE # 0.4 TH/MM3 (1.0-4.8); MEAN CELL VOLUME 92.9 FL (80.0-100.0); MEAN CORPUSCULAR HEMOGLOBIN 29.2 PG (27.0-34.0); MEAN CORPUSCULAR HGB CONC 31.5 % (32.0-36.0); MEAN PLATELET VOLUME 7.7 FL (7.0-11.0); MONO % 2.7 % (0.0-8.0); MONOCYTE # 0.2 TH/MM3 (0-0.9); NEUT % 92.3 % (16.0-70.0); PLATELET COUNT 391 TH/MM3 (150-450); RED BLOOD COUNT 3.34 MIL/MM3 (4.50-5.90); RED CELL DISTRIBUTION WIDTH 13.6 % (11.6-17.2)
[2017-10-10 14:19] LABS: CHLORIDE 105 MEQ/L (98-107); SODIUM (NA) 138 MEQ/L (136-145)
[2017-10-10 14:22] LABS: CALCIUM 8.9 MG/DL (8.5-10.1)
[2017-10-10 14:23] LABS: ALBUMIN 3.2 GM/DL (3.4-5.0); BICARBONATE 26.7 MEQ/L (21.0-32.0); BLOOD UREA NITROGEN 29 MG/DL (7-18); GLUCOSE,RANDOM 127 MG/DL (74-106)
[2017-10-10] MEDS ORDERED: DIATRIZOATE MEGLUM/DIATRIZOATE SOD 9 ML CUP ONE (14:23)
[2017-10-10 14:25] LABS: ALT (GPT) 13 U/L (12-78)
[2017-10-10 14:26] LABS: AST (GOT) 16 U/L (15-37); GLOMERULAR FILTRATION RATE 39 ML/MIN (>89)
[2017-10-10 14:27] LABS: TOTAL BILIRUBIN ADULT 0.3 MG/DL (0.2-1.0); TOTAL PROTEIN 7.5 GM/DL (6.4-8.2)
[2017-10-10 14:28] LABS: ALKALINE PHOSPHATASE 89 U/L (45-117)
[2017-10-10 15:45] VITALS: BP 170/75; PULSE 70; RESP 16; O2SAT 98
[2017-10-10] MEDS ORDERED: ONDANSETRON HCL 4 MG/2 ML VIAL IVP ONE (15:45)
[2017-10-10] MEDS ORDERED: MORPHINE SULFATE 4 MG/ML INJ IV PUSH ONE (15:45)
--- NOTE | 2017-10-10 16:00 | RADRPT ---
EXAM DATE/TIME: 10/10/2017 15:31 [facility] COMPARISON: No previous studies available for comparison. INDICATIONS : Right groin pain. Nausea and vomiting. ORAL CONTRAST: Prescribed oral contrast ingested. RADIATION DOSE: 10.83 CTDIvol (mGy) MEDICAL HISTORY : Cardiovascular disease. Cerebrovascular disease. Hypertension. SURGICAL HISTORY : Appendectomy. Hernia repair. Right hip replacement. ENCOUNTER: Initial ACUITY: 1 day PAIN SCALE: 10/10 LOCATION: Right inguinal TECHNIQUE: Volumetric scanning of the abdomen and pelvis was performed. Using automated exposure control and ad justment of the mA and/or kV according to patient size, radiation dose was kept as low as reasonably achievable to obtain optimal diagnostic quality images. DICOM format image data is available electro nically for review and comparison. FINDINGS: Examination is abnormal demonstrating a right inguinal hernia which appears to contain a loop of vishal l and mesenteric fat. The hernia measures 4.9 cm it superior/inferior extent and 5.5 cm in width alessandro l stop right total hip arthroplasty causes some streak artifact in the right inguinal region which ob scures some of the structures, however, the mesenteric fat extending into the hernia suggests that th ere is a strangulated loop of small bowel. Oral contrast passes through proximally one half the way through the small bowel. Distal small bowel loops in the right lower quadrant are only mildly dilate d, measuring up to 2.8 cm. No evidence of free fluid or free intraperitoneal gas. The liver is grossly unremarkable for noncontrast technique. There is a rim calcification in the lat eral aspect of the gallbladder fossa measuring 2.0 cm. The gallbladder appears contracted and it is uncertain whether this calcification in the wall of the gallbladder or represents a large calcified s tone. Urinary bladder margins are smooth. No evidence of free fluid. There is dilation of the collecting system of both kidneys. The ureters are not well seen, but no findings to suggest ureteral dilation. There are extensive diverticula in the sigmoid and the distal ureters probably passed by the sigmoi d colon. No definite radiographic evidence of diverticulitis. There is a small nodular density in the anterior lower right lung measuring 4 mm. No evidence of ple ural effusion. There is a healed fracture of the posterior left 9th and 10th ribs. Moderate degener ative changes in the posterior elements of the lower lumbar spine. CONCLUSION: 1. Large right inguinal hernia which appears to contain a loop of distal small bowel and mesenteric f at stop oral contrast only passes one half way through the small bowel suggesting that there may be i leus or partial obstruction. 2. Bilateral hydronephrosis without calcified gallstones. 3. Extensive sigmoid diverticulosis without radiographic evidence of diverticulitis. 4. 2 cm in calcification lateral aspect of the gallbladder fossa with differential considerations inc luding calcified gallbladder wall versus a large calcified gallstone. Kush Long MD on October 10, 2017 at 15:46 Board Certified Radiologist. This report was verified electronically.
[2017-10-10] MEDS ORDERED: NALOXONE HCL 0.4 MG/ML AMP IV PUSH PRN (17:30)
--- NOTE | 2017-10-10 17:31 | HHI.HP ---
[facility] Service [facility] Primary Care Physician Fran Garcia MD Admission Diagnosis INCARCERATED RIGHT INGUINAL HERNIA Diagnoses: Chief Complaint: Incarcerated hernia Nausea and vomiting Travel History International Travel<30 Days: No Contact w/Intl Traveler <30 Da: No Traveled to Known Affected Are: No History of Present Illness This is a pleasant 81-year-old male patient with a known medical history of hernia repair who presented to the ED with abdominal pain, nausea and vomiting. Patient states that he woke up this morning nauseous and vomiting 2 episodes. Patient states that after these episodes of emesis he noticed a large lump in his right groin, where he had previously had a hernia repair. Patient states that he notices intermittently that his hernia "pops out" and is able to "push it back in" at this time he was unable to. Patient denies any recent illness including fever, chills, headache, sore throat, shortness of breath, abdominal pain, diarrhea or dysuria. Patient states that before this occurrence this morning he has been relatively healthy. States that maybe his medications on an empty stomach made him vomit this morning PCP is Dr. Bello. 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 Review of Systems Constitutional: DENIES: Diaphoretic episodes, Fatigue, Fever, Chills Eyes: DENIES: Blurred vision, Diplopia Ears, nose, mouth, throat: DENIES: Hearing loss Respiratory: DENIES: Cough Cardiovascular: DENIES: Chest pain, Palpitations Gastrointestinal: COMPLAINS OF: Abdominal pain, Nausea, Vomiting, DENIES: Black stools, Bloody stools, Constipation, Diarrhea Musculoskeletal: DENIES: Joint pain Integumentary: DENIES: Abnormal pigmentation Hematologic/lymphatic: DENIES: Bruising Neurologic: DENIES: Abnormal gait Psychiatric: DENIES: Anxiety Except as stated in HPI: all other systems reviewed are Neg Past Family Social History Past Medical History Hyperlipidemia Hypertension Hernia Past Surgical History Appendectomy Hernia repair 40 years ago Hip replacement 2 months ago Reported Medications Active Aspirin 81 Mg Chew 81 Mg CHEW DAILY Norvasc (Amlodipine Besylate) 10 Mg Tab 10 Mg PO DAILY Calcium 600+D 200 (Calcium Carbonate-Vitamin D) 600-200 Mg-Unit Tab 1 Tab PO BID Ergocalciferol 50,000 Unit Cap 50,000 Units PO Q7D Reported Claritin (Loratadine) 10 Mg Cap 10 Mg PO DAILY Allergies: Coded Allergies: No Known Allergies (Verified Adverse Reaction, Unknown, 10/10/17) Active Ordered Medications Current Medications Medications (Trade) Dose Ordered Sig/Dirk Route Start Time Stop Time Status Last Admin (NS Flush) 2 ml UNSCH PRN IV FLUSH 10/10/17 13:45 Family History Family history noncontributory. Social History Denies any tobacco, alcohol or illicit drug use. Physical Exam Vital Signs Vital Signs Date Time Temp Pulse Resp B/P (MAP) Pulse Ox O2 Delivery O2 Flow Rate FiO2 10/10/17 15:45 70 16 170/75 (106) 98 Room Air 10/10/17 14:00 16 99 Room Air 10/10/17 13:02 97.2 53 16 157/67 (97) 100 Physical Exam GENERAL: Well-developed, well-nourished patient with right groin pain SKIN: Warm and dry. No rash. HEAD: Normocephalic. Atraumatic. EYES: Pupils equal and round. No scleral icterus. No injection or drainage. ENT: No nasal bleeding or discharge. Mucous membranes pink and moist. NECK: Supple. Trachea midline. CARDIOVASCULAR: Regular rate and rhythm. S1, S2 noted. No murmur appreciated. RESPIRATORY: No accessory muscle use. Clear to auscultation. Breath sounds equal bilaterally. GASTROINTESTINAL: Abdomen soft, non-tender, nondistended. Normoactive bowel sounds x4. Large right inguinal hernia upon initial assessment, reproduced now. MUSCULOSKELETAL: No obvious deformities. Extremities without clubbing, cyanosis , or edema. NEUROLOGICAL: Awake and alert. No obvious cranial nerve deficits. Motor grossly within normal limits. 5/5 muscle strength in bilateral upper and lower extremities. Normal speech. PSYCHIATRIC: Appropriate mood and affect; insight and judgment normal. Laboratory Laboratory Tests Test 10/10/17 14:04 White Blood Count 9.0 Red Blood Count 3.34 Hemoglobin 9.8 Hematocrit 31.0 Mean Corpuscular Volume 92.9 Mean Corpuscular Hemoglobin 29.2 Mean Corpuscular Hemoglobin Concent 31.5 Red Cell Distribution Width 13.6 Platelet Count 391 Mean Platelet Volume 7.7 Neutrophils (%) (Auto) 92.3 Lymphocytes (%) (Auto) 4.5 Monocytes (%) (Auto) 2.7 Eosinophils (%) (Auto) 0.2 Basophils (%) (Auto) 0.3 Neutrophils # (Auto) 8.4 Lymphocytes # (Auto) 0.4 Monocytes # (Auto) 0.2 Eosinophils # (Auto) 0.0 Basophils # (Auto) 0.0 CBC Comment DIFF FINAL Differential Comment Blood Urea Nitrogen 29 Creatinine 1.70 Random Glucose 127 Total Protein 7.5 Albumin 3.2 Calcium Level 8.9 Alkaline Phosphatase 89 Aspartate Amino Transf (AST/SGOT) 16 Alanine Aminotransferase (ALT/SGPT) 13 Total Bilirubin 0.3 Sodium Level 138 Potassium Level 4.4 Chloride Level 105 Carbon Dioxide Level 26.7 Anion Gap 6 Estimat Glomerular Filtration Rate 39 Lipase 118 Result Diagram: 10/10/17 1404 10/10/17 1404 Imaging Last Impressions Abdomen/Pelvis CT 10/10/17 1345 Signed Impressions: Service Date/Time: September 15:31 - CONCLUSION: 1. Large right inguinal hernia which appears to contain a loop of distal small bowel and mesenteric fat stop oral contrast only passes one half way through the small bowel suggesting that there may be ileus or partial obstruction. 2. Bilateral hydronephrosis without calcified gallstones. 3. Extensive sigmoid diverticulosis without radiographic evidence of diverticulitis. 4. 2 cm in calcification lateral aspect of the gallbladder fossa with differential considerations including calcified gallbladder wall versus a large calcified gallstone. Kush Long MD Septic Shock Reassessment Septic shock perfusion: reassessment completed Caprini VTE Risk Assessment Caprini VTE Risk Assessment: Mod/High Risk (score >= 2) Caprini Risk Assessment Model Point Value = 1 Point Value = 2 Point Value = 3 Point Value = 5 Age 41-60 Minor surgery BMI > 25 kg/m2 Swollen legs Varicose veins or History of unexplained or recurrent spontaneous Oral contraceptives or hormone replacement Sepsis (< 1 month) Serious lung disease, including pneumonia (< 1 month) Abnormal pulmonary function Acute myocardial infarction Congestive heart failure (< 1 month) History of inflammatory bowel disease Medical patient at bed rest Age 61-74 Arthroscopic surgery Major open surgery (> 45 min) Laparoscopic surgery (> 45 min) Malignancy Confined to bed (> 72 hours) Immobilizing plaster cast Central venous access Age >= 75 History of VTE Family history of VTE Factor V Leiden Prothrombin [id number] Lupus anticoagulant Anticardiolipin antibodies Elevated serum homocysteine Heparin-induced thrombocytopenia Other congenital or acquired thrombophilia Stroke (< 1 month) Elective arthroplasty Hip, pelvis, or leg fracture Acute spinal cord injury (< 1 month) Prophylaxis Regimen Total Risk Factor Score Risk Level Prophylaxis Regimen 0-1 Low Early ambulation 2 Moderate Order ONE of the following: *Sequential Compression Device (SCD) *Heparin 5000 units SQ BID 3-4 Higher Order ONE of the following medications: *Heparin 5000 units SQ TID *Enoxaparin/Lovenox 40 mg SQ daily (WT < 150 kg, CrCl > 30 mL/min) *Enoxaparin/Lovenox 30 mg SQ daily (WT < 150 kg, CrCl > 10-29 mL/min) *Enoxaparin/Lovenox 30 mg SQ BID (WT < 150 kg, CrCl > 30 mL/min) AND/OR *Sequential Compression Device (SCD) 5 or more Highest Order ONE of the following medications: *Heparin 5000 units SQ TID (Preferred with Epidurals) *Enoxaparin/Lovenox 40 mg SQ daily (WT < 150 kg, CrCl > 30 mL/min) *Enoxaparin/Lovenox 30 mg SQ daily (WT < 150 kg, CrCl > 10-29 mL/min) *Enoxaparin/Lovenox 30 mg SQ BID (WT < 150 kg, CrCl > 30 mL/min) AND *Sequential Compression Device (SCD) Assessment and Plan Problem List: (1) Inguinal hernia with incarceration ICD Code: K40.30 - Unilateral inguinal hernia, with obstruction, without gangrene, not specified as recurrent Assessment and Plan This is a pleasant 81-year-old male patient with a known medical history of hernia repair who presented to the ED with abdominal pain, nausea and vomiting. Inguinal hernia with incarceration History of hernia repair CT of the abdomen/pelvis done prior to reproducing hernia reviewed showing large right inguinal hernia possible ileus or partial obstruction. Showing extensive sigmoid diverticulosis without diverticulitis. Calcified gallbladder wall appears large calcified gallstone. CBC reviewed, essentially remarkable. Chronic anemia. BMP showing chronic renal failure, essentially unremarkable. Spoke to ER physician who spoke to general surgery, appreciate further recommendations. Hernia appears to be reproduced and back to baseline. Morphine IV available as needed per pain scale. Will keep n.p.o. for now. Appreciate surgery input. Supportive care. Supplemental O2 as needed, comfortable on room air. Hypertension, chronic: BP elevated. Likely secondary to pain. We will continue to monitor BP trends. DVT prophylaxis: SCDs Discussed Condition With Spoke to Dr. Bo who states that patient's hernia is fully reproduced. No need for admission, patient is afebrile no leukocytosis. Tolerating liquids. Will follow up in office with general surgery next week. Yeny Davidson Oct 10, 2017 17:31
[2017-10-10] MEDS ORDERED: BISACODYL 10 MG SUPP RECTAL PRN (18:00)
[2017-10-10] MEDS ORDERED: ACETAMINOPHEN 325 MG TAB PO PRN (18:00)
[2017-10-10 18:02] VITALS: BP 159/71; PULSE 71; RESP 16; O2SAT 98
[2017-10-10] MEDS ORDERED: MORPHINE SULFATE 2 MG/ML INJ IM PRN (20:00)
[2017-10-10] MEDS ORDERED: DOCUSATE SODIUM 50 MG/SENNA 8.6 MG TAB PO SCH (21:00)
[2017-10-10] MEDS ORDERED: MAGNESIUM HYDROXIDE SUSP 30 ML CUP PO PRN (21:00)
[2017-10-10] MEDS ORDERED: SENNOSIDES 8.6 MG TAB PO PRN (21:00)
[2017-10-10] MEDS ORDERED: SODIUM CHLORIDE 0.9% FLUSH 10 ML FLUSH IV FLUSH SCH (21:00)
[2017-10-10] MEDS ORDERED: ONDANSETRON HCL 4 MG/2 ML VIAL IVP PRN (22:00)
[2017-10-11] MEDS ORDERED: CALCIUM/VITAMIN D 250 MG/125 U TAB PO SCH (09:00)
[2017-10-11] MEDS ORDERED: ASPIRIN 81 MG CHEW TAB CHEW SCH (09:00)
[2017-10-11] MEDS ORDERED: ERGOCALCIFEROL (VIT D2) 50,000 UNIT CAP PO SCH (09:00)
[2017-10-11] MEDS ORDERED: LORATADINE 10 MG TAB PO SCH (09:00)
--- NOTE | 2017-10-11 09:26 | MB ---
cc: LINRHIANNON DATE OF CONSULTATION 10/10/2017 TIME 5:[address] Jimmy Cali, ER physician REASON FOR CONSULTATION Right inguinal hernia. HISTORY OF PRESENT ILLNESS The patient is an 81-year-old male who presented to [facility] with acute onset of right groin pain and swelling. The patient had a known history of a hernia which he has had for at least 20 years and often has to reduce himself. The patient states he has never had it to the point where he could not reduce it and once he could not reduce it today at home, he presented to the emergency department. The patient also states at that time he developed abdominal distension, nausea, vomiting and diaphoresis. Upon arrival in the emergency department, the patient was found to have an incarcerated right inguinal hernia that is non-reducible by the emergency room physician. CT scan was performed and did show a right inguinal hernia with bowel incarcerated. The patient was admitted to the hospital service and general surgery was consulted for evaluation. During the admission evaluation by ALEXANDER Carter, the patient's hernia was reduced on physical exam or spontaneously at that time. Currently, the patient states he has no pain. He has no further swelling. No nausea, vomiting and no complaints. He is hungry and would like to go home. He states that he would like to have his hernia repaired as soon as possible. REVIEW OF SYSTEMS A 12-point review of systems conducted with the patient is negative except the pertinent positives mentioned above in the history present illness. PAST MEDICAL HISTORY 1. Hyperlipidemia 2. Hypertension PAST SURGICAL HISTORY 1. Appendectomy 2. Hernia repair of a right inguinal hernia about 40 years ago 3. Hip replacement two months ago by Dr. Atkins. MEDICATIONS 1. Aspirin 81 mg 2. Amlodipine 3. Calcium ALLERGIES NO KNOWN DRUG ALLERGIES. FAMILY HISTORY Noncontributory SOCIAL HISTORY The patient denies alcohol, tobacco or illicit drug use. Lives with his and is functionally independent. PHYSICAL EXAMINATION VITAL SIGNS: Pulse of 70, respiratory rate 16, blood pressure 170/75, O2 saturation is 98% on room air. GENERAL: The patient is a well-developed, well-nourished male elderly in no acute distress. He does not appear acute or chronically ill. HEAD: Normocephalic, atraumatic. EYES, EARS, NOSE AND THROAT: Pupils round and reactive to accommodation and light. Sclerae is anicteric. Oral cavity is clear. Airway is patent. NECK: Supple. No JVD. No lymphadenopathy. LUNGS: Clear to auscultation bilaterally. Nonlabored breathing pattern. HEART: Regular rhythm. PMI is nondisplaced. ABDOMEN: Soft, nontender to palpation. No organomegaly. No ascites. Normal bowel sounds. Inguinal exam reveals a moderate size right inguinal hernia that is completely reduced. There are no signs of overlying erythema or inflammation. GENITALIA: Male genitalia within normal limits. EXTREMITIES: No clubbing, cyanosis or edema. RECTAL: Exam was deferred. NEUROLOGIC: The patient is alert, oriented x3. Mood, judgment and insight are intact. Cranial nerves II-XII are grossly intact. Nonfocal peripheral exam. LABORATORY DATA White blood cell count is 9.0, hemoglobin 9.8. ASSESSMENT/PLAN The patient is an 81-year-old male with a short course of less than 24 hours of incarcerated right inguinal hernia now spontaneously reduced in the emergency department. The patient has no clinical signs or concerns on history or physical exam of any injury to the bowel and the hernia is completely reduced at this time. I discussed this management with the patient including elective hernia repair due to the risk of further incarceration and he would like to have this done electively. The patient can be discharged from the emergency room from a surgical standpoint and will follow up with my office. I did provide my contact information to the patient and he was called for an appointment on Saturday. The patient was counseled to return to the emergency department if his symptoms recur and to maintain his hernia reduced and if not to return to the emergency department. MD YAKELIN Whatley/MIKE /7:59 PM /9:03 AM
== END 2017-10-10 18:59 | disposition home or self-care (01) ==
LOC: PHED 12:56 → PHEDA 16:35 → UNDOADMOB 16:35 → PHED 18:59
DX: K40.90 Unilateral inguinal hernia, without obstruction or gangrene, not specified as recurrent (principal); E78.5 Hyperlipidemia, unspecified; I10 Essential (primary) hypertension; Z79.82 Long term (current) use of aspirin; Z79.899 Other long term (current) drug therapy
CPT/HCPCS: 74176; 80053; 83690; 85025; 96361; 96374; 96375; 99284; J2270; J2405; J7030; Q9963

== ENCOUNTER → 2017-11-22 | Day surgery (SDC) | payer OTHER ==
[~2017-11-22] VITALS: Ht 172.7 cm; Wt 60.0 kg
[~2017-11-22] MED LIST changes: +*ENALAPRILAT 1.25 MG/ML VIAL PERIprocedural Use ONLY ONE; +ACETAMINOPHEN/HYDROcodone 325 MG/5 MG TAB ONE; +AMLO5TAB2 PO; +ASPI-183 PO; +ATOR20TA15 PO; +BUPIVACAINE/EPINEPHRINE 0.25% PF 30 ML VIAL ONE; +CHLORHEXIDINE GLUCONATE 2 % 1 PACK (2 CLOTHS) TOPICAL PRN; +FLUT50SP EACH NARE; -HYDR-3580 PO; +LACTATED RINGER'S 1000 ML IV PRN; +MAPA325T PO; +MAPA500T13 PO; +METOPROLOL TARTRATE 25 MG TAB PO PRN; +POVIDONE IODINE 5% (ANTISEPSIS KIT) 4 APPLICATIONS EACH NARE PRN; +SODIUM CHLORID 0.9% 500 ML IV PRN; +ceFAZolin 2 GM PREMIX 50 ML IV SCH
[2017-11-22 07:24] LABS: BASOPHIL % 0.4 % (0.0-2.0); EOSINOPHIL # 0.3 TH/MM3 (0-0.4); EOSINOPHIL % 4.7 % (0.0-4.0); HEMATOCRIT 31.5 % (39.0-51.0); HEMOGLOBIN 10.4 GM/DL (13.0-17.0); LYMPHOCYTE # 0.8 TH/MM3 (1.0-4.8); MEAN CELL VOLUME 92.6 FL (80.0-100.0); MEAN CORPUSCULAR HEMOGLOBIN 30.5 PG (27.0-34.0); MONO % 12.8 % (0.0-8.0); MONOCYTE # 0.8 TH/MM3 (0-0.9); NEUT % 68.1 % (16.0-70.0); PLATELET COUNT 280 TH/MM3 (150-450); RED CELL DISTRIBUTION WIDTH 13.9 % (11.6-17.2); WHITE BLOOD COUNT 5.9 TH/MM3 (4.0-11.0)
[2017-11-22 07:36] LABS: BICARBONATE 28.9 MEQ/L (21.0-32.0); CALCIUM 8.9 MG/DL (8.5-10.1)
[2017-11-22 07:40] LABS: CREATININE 1.5 MG/DL (0.60-1.30)
--- NOTE | 2017-11-22 10:10 | MP ---
cc: Erik Bo MD DATE OF OPERATION: 11/22/2017 DATE OF PROCEDURE: 11/22/2017 PREOPERATIVE DIAGNOSIS: Recurrent right inguinal hernia with history of incarceration. POSTOPERATIVE DIAGNOSIS: Right femoral hernia. PROCEDURE PERFORMED: Open right femoral hernia repair (primary repair without mesh). ATTENDING SURGEON: Erik Bo MD COMMUNICATIONS EQUIPMENT SUPERVISOR: Staff. ANESTHESIA: General and local anesthetic. FINDINGS: Completely intact right inguinal canal with a moderate sized right femoral hernia with bowel and visceral contents herniating through the femoral canal medial to the femoral vein. INDICATION FOR PROCEDURE: The patient is an 81-year-old male who presented to [facility] Emergency Department several weeks ago with a painful bulge in his right groin. The patient underwent reduction of this hernia in the ER. On physical exam, this appeared to be a direct inguinal hernia. The patient had a previous inguinal hernia repair many decades ago that was done without mesh. This was felt to be a recurrent inguinal hernia and the patient followed up for elective repair. Risks, benefits, and alternatives to hernia repair with mesh were discussed with the patient in detail and patient agreed to undergo the procedure. DESCRIPTION OF PROCEDURE: The patient was taken to the operating room and placed in the supine position, placed under general anesthesia with LMA airway. The patient's right groin was shaved, prepped and draped in sterile fashion. Timeout was performed. The local anesthetic was instilled in the planned incision site, as well as a right inguinal block was performed using Marcaine. A skin incision was made approximately 5 cm long over the right inguinal skin fold above the inguinal ligament. Bovie electrocautery was used to dissect through the subcutaneous tissue down to the external oblique fascia. While we were dissecting out the field, the hernia sac was noted to be inferior to the inguinal ligament. We continued our dissection. We dissected this hernia sac out and then this was clearly a hernia sac that was coming from the femoral space medial to the femoral vein, consistent with a femoral hernia. This was easily reducible. We did go ahead and open the external oblique fascia and inspect the inguinal floor and this was found to be intact with a very intact small internal ring and complete intact inguinal canal. Therefore, we turned our attention towards repairing the femoral hernia. We did reduce the hernia contents and ligate the sac with the 3-0 Vicryl suture. The remnant of the stump of the sac was reduced back into the pelvis through the femoral space without difficulty. The lacunar ligament and inguinal ligament and Tutu's ligament were closed with really no tension using interrupted 0 Prolene sutures to completely close the femoral space. We had excellent technical repair with complete repair of the hernia, stopping just short of the femoral vein. We then closed the external oblique fascia with a running 2-0 Vicryl suture as we had opened it earlier to explore the inguinal canal for possible inguinal hernia. We ensured the testicle was back in normal anatomic location. We closed the García's fascia with a running 3-0 Vicryl suture. We closed the skin with 4-0 Vicryl and Dermabond was applied. The patient was discontinued from anesthesia and taken to the PACU in stable condition. The patient tolerated the procedure well with no apparent complications. All counts were correct and I was present and scrubbed for the entire procedure. MD YAKELIN Whatley/ROBBIE , 09:44 AM , 10:09 AM
[2017-11-22 11:00] VITALS: BP 165/70; PULSE 66; RESP 16; TEMP 97.7; O2SAT 97
== END | disposition home or self-care (01) ==
LOC: PHSDC 06:15
PROVIDERS: ATTEND Surgery
DX: K41.90 Unilateral femoral hernia, without obstruction or gangrene, not specified as recurrent (principal); Z01.818 Encounter for other preprocedural examination
CPT/HCPCS: 00830; 49550; 80048; 85025; J0690; J3010; J7120